=== PATIENT | female | born 1945 | race Caucasian/White ===

== ENCOUNTER 2017-08-25 12:52 | Inpatient (IN) | payer OTHER ==
[~2017-08-25] VITALS: Ht 165.1 cm; Wt 85.7 kg
[~2017-08-25 12:52] MED LIST: ALPR1TAB3 PO; ASPCH81; ATOR-24 PO; CETI10TA84 PO; DFL100 PO; EFF50 PO; GABA-113 PO; GLC500 PO; HYDC25 PO; INSU70IN2 SC; METO25TA56 PO; NTRGSL/4 UT; PRLSR20 PO; SULF800T23 PO; [UNRECOGNIZED DRUG - CODE] PO
[2017-08-25] MEDS ORDERED: SODIUM CHLORIDE 0.9% 500ML 500 ML IV STA (13:37)
[2017-08-25] MEDS ORDERED: LORA10TA51 PO (13:40)
[2017-08-25] MEDS ORDERED: LYR50 PO (13:40)
[2017-08-25] MEDS ORDERED: FERR1TAB13 PO (13:40)
[2017-08-25] MEDS ORDERED: ASPI81TA28 PO (13:40)
[2017-08-25] MEDS ORDERED: NTRGSL/4 UT (13:40)
[2017-08-25] MEDS ORDERED: NVLGI7030 SC (13:40)
[2017-08-25] MEDS ORDERED: ISOS30TA3 PO (13:40)
[2017-08-25] MEDS ORDERED: CARV3.12 PO (13:40)
[2017-08-25] MEDS ORDERED: SPRIN/30 INH (13:40)
[2017-08-25] MEDS ORDERED: LISI-729 PO (13:40)
[2017-08-25] MEDS ORDERED: SYMIN160 INH (13:40)
[2017-08-25] MEDS ORDERED: ALLO300T2 PO (13:40)
[2017-08-25] MEDS ORDERED: LIDO4CRE10 TP (13:40)
[2017-08-25] MEDS ORDERED: OXGN (13:40)
[2017-08-25] MEDS ORDERED: CYAN10005 PO (13:40)
[2017-08-25] MEDS ORDERED: ROSU40TA PO (13:40)
[2017-08-25] MEDS ORDERED: CLOP1TAB54 PO (13:40)
[2017-08-25] MEDS ORDERED: ALBINS/ INH (13:40)
[2017-08-25] MEDS ORDERED: PRED20TA PO (13:40)
[2017-08-25] MEDS ORDERED: BUME1TAB PO (13:40)
[2017-08-25] MEDS ORDERED: ALPR1TAB3 PO (13:40)
[2017-08-25] MEDS ORDERED: MAGN400T6 PO (13:40)
[2017-08-25] MEDS ORDERED: OXYC-57 PO (13:40)
[2017-08-25] MEDS ORDERED: CHOL20009 PO (13:40)
[2017-08-25] MEDS ORDERED: RANI150T3 PO (13:40)
--- NOTE | 2017-08-25 14:01 | DIAGNOSTIC IMAGING REPORT ---
CHEST ONE VIEW PORTABLE HISTORY: 71 years-old Female ABDOMINAL PAIN/GI acute generalized abdominal pain with recent weight loss COMPARISON: None available TECHNIQUE: Portable upright AP view of the chest FINDINGS: Linear subsegmental bibasilar opacities are noted. Cardiac silhouette is mildly enlarged. There is atherosclerosis of the aorta. No pneumothorax, large pleural effusion or lobar airspace consolidation to suggest pneumonia. Mild blunting of left costophrenic angle is noted . The bones are grossly intact. Degenerative changes involve the shoulders and spine. Remote fracture of the distal right clavicle. IMPRESSION: 1. Cardiomegaly without overt pulmonary edema. 2. Linear subsegmental bibasilar opacities suggest atelectasis. Mild blunting of the left costophrenic angle also suggests atelectasis or trace effusion. The above report was generated using voice recognition software. It may contain grammatical, syntax or spelling errors. Electronically signed by: Miguelito Levy M.D. 08/25/2017 2:00 PM Dictated Date/Time: 08/25/2017 1:58 PM
[2017-08-25 14:42] LABS: BASO % 0.7 %; BASO ABS # 0.04 K/uL (0-0.2); COMPLETE YES; EOS % 2.6 %; HEMATOCRIT 31.4 % (37-47); IG% 0.7 %; LYMPH % 16.2 %; LYMPH ABS # 0.92 K/uL (1.2-3.4); MEAN CELL VOLUME 86.7 fL (80-100); MEAN CORPUSCULAR HEMOGLOBIN 28.2 pg (25-34); MEAN CORPUSCULAR HGB CONC 32.5 g/dl (32-36); MEAN PLATELET VOLUME 9.6 fL (7.4-10.4); NEUT % 67.8 %; PLATELET COUNT 248 K/uL (130-400); RED BLOOD COUNT 3.62 M/uL (4.2-5.4); WHITE BLOOD COUNT 5.68 K/uL (4.8-10.8)
[2017-08-25 15:00] LABS: BUN/CREATININE RATIO 12.3 (10-20); CALCIUM 9.1 mg/dl (8.5-10.1); CREATININE 1.62 mg/dl (0.60-1.20); POTASSIUM 4.1 mmol/L (3.5-5.1)
--- NOTE | 2017-08-25 16:13 | DIAGNOSTIC IMAGING REPORT ---
ABD/PELVIS WITHOUT FOR STONE CLINICAL HISTORY: 71 years-old Female presenting with back pain. TECHNIQUE: Multidetector CT of the abdomen and pelvis was performed without the use of intravenous contrast. IV contrast: None. A dose lowering technique was used consistent with the principles of ALARA (as low as reasonably achievable). COMPARISON: None. CT DOSE (mGy.cm): The estimated cumulative dose is 1266.13 mGy.cm. FINDINGS: Tie Knitter Helper topogram: Cholecystectomy clips noted. Lung bases: Extensive bandlike opacities at the lung bases, possibly scarring and/or atelectasis. Mild bronchial wall thickening may be present. Heart top normal in size. Mitral annular and coronary artery calcification. Trace left pleural effusion. No pericardial effusion. Liver: Normal morphology. Borderline hepatic steatosis. Biliary: No gross biliary ductal dilatation allowing for noncontrast technique. Gallbladder surgically absent. Pancreas: Moderate parenchymal atrophy. Spleen: Normal noncontrast appearance. Adrenal glands: Normal. Kidneys and ureters: Normal noncontrast appearance. No hydronephrosis. Nonspecific perinephric fat infiltration. Renal vascular calcification. Bladder: Normal. Pelvic organs: Uterus and ovaries normal. Bowel: Limited diverticulosis of the proximal sigmoid colon. Mild stool burden. Lipomatous hypertrophy of the ileocecal valve. No bowel obstruction. Peritoneal cavity: Mild infiltration of the small bowel mesentery associated with scattered prominent mesenteric lymph nodes. This may represent mesenteric panniculitis or be related to the lymphoid disease. No free fluid or gas. Lymph nodes: Multiple pathologically enlarged retroperitoneal lymph nodes noted, some forming a conglomerate in the left periaortic region. Lymphadenopathy extends into the celiac region as well as the posterior mediastinum and retrocrural regions. Numerous prominent no subcentimeter lymph nodes noted in the bilateral common and external iliac regions. Vasculature: Atherosclerosis of the normal caliber abdominal aorta. Abdominal wall: Normal. Musculoskeletal: Degenerative changes of the spine. IMPRESSION: 1. Significant retroperitoneal lymphadenopathy, which is highly suspicious for lymphoproliferative disease/lymphoma. Sites of involvement described above. 2. No other acute intra-abdominal pathology evident. 3. Extensive bibasilar atelectasis and/or scarring. The report will be called/faxed according to standard departmental protocol. Electronically signed by: Goran Dumont M.D. 08/25/2017 4:12 PM Dictated Date/Time: 08/25/2017 4:03 PM
--- NOTE | 2017-08-25 16:50 | EMERGENCY ROOM VISIT NOTE ---
History Report prepared by Lucy: Chyna Mendez Under the Supervision of: Dr. Morro Lovett D.O. First contact with patient: 13:18 Chief Complaint: ABNORMAL LABS Stated Complaint: ABNORMAL LABS History of Present Illness The patient is a 71 year old female who presents to the Emergency Room after abnormal outpatient labs. The patient has been having severe back pain. She has been seen in the ED in [place] multiple times for this pain. She states that most of her pain is located on the left side of her back. She went to the [place] ED 4 days ago and had a chest CT and blood work done at that time. Family states this CT scan showed a retroperitoneal mass that was wrapped around her aorta. She followed up with her PCP, Dr. Davenport, the next day. She had some repeat blood work done at that time. Yesterday the patient was called into her PCP's office for repeat blood work again. She was called today and told that her labs were abnormal. She was advised to come to the ED for further evaluation. Family states that they also wanted the patient to have an abdominal CT to get a better view of her retroperitoneal mass. The patient has been taking oral pain medication that seems to be helping her pain. She states that her pain worsens with bending forward. She rates her current pain as a 5/ 10 in severity. She also reports a recent 15-lb weight-loss as well as some pain in the right ribs. 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 A total of 10 systems reviewed and were otherwise negative. Past Medical & Surgical Medical Problems: (1) Esophageal reflux (2) Hypertension Surgical Problems: (1) Knee joint replacement status Family History No pertinent history stated. Social History Smoking Status: Unknown if Ever Smoked Current/Historical Medications Scheduled Allopurinol (Zyloprim), 300 MG PO DAILY Aspirin (Aspirin Ec), 81 MG PO DAILY Budesonide/Formoterol Fumarate (Symbicort 160/4.5 Inhaler ), 2 PUFFS INH BID Bumetanide (Bumex), 1 MG PO DAILY Carvedilol (Coreg), 3.125 MG PO BIDM Cholecalciferol (Vitamin D), 2,000 UNITS PO DAILY Clopidogrel Bisulfate (Plavix), 75 MG PO DAILY Cyanocobalamin (Vitamin B-12), 1,000 MCG PO DAILY Ferrous Sulfate (Kp Ferrous Sulfate), 325 MG PO BID Home O2 Therapy (Oxygen), 2 LITERS NA UD Insulin Aspart Protamine & Asp (Novolog Mix 70/30), 62 UNITS SC BIDM Isosorbide Mononitrate Ext Rel (Imdur Ext Rel), 30 MG PO BID Lisinopril (Prinivil), 5 MG PO DAILY Loratadine (Claritin), 10 MG PO DAILY Magnesium Oxide (Mag-Ox), 400 MG PO BID Prednisone (Prednisone), 1 DOSE PO UD Pregabalin (Lyrica), 50 MG PO BID Ranitidine Hcl (Zantac), 150 MG PO BID Rosuvastatin Calcium (Crestor), 40 MG PO DAILY Tiotropium Java (Spiriva Handihaler), 1 CAP INH DAILY Scheduled PRN Albuterol Sulf (Proventil 0.083% 2.5MG/3ML), 2.5 MG INH Q4 PRN for Wheezing Alprazolam (Xanax), 0.5 MG PO BID PRN for Anxiety Lidocaine (Anorectal) (Lidocaine), 1 APPLN TP Q4 PRN for Moderate Pain Nitroglycerin (Nitrostat), 0.4 MG UT PRN PRN for Chest Pain Oxycodone/Acetaminophen 5MG/325MG (Percocet 5MG/325MG), 1 TABLET PO Q6H PRN for Pain Allergies Coded Allergies: Niacin (Unverified Allergy, Mild, 08/25/17) Physical Exam Vital Signs Date Time Temp Pulse Resp B/P (MAP) Pulse Ox O2 Delivery O2 Flow Rate FiO2 08/25/17 15:04 72 131/51 95 Room Air 08/25/17 12:56 36.7 81 18 115/73 97 Room Air Physical Exam CONSTITUTIONAL/VITAL SIGNS: Reviewed / noted above. GENERAL: Non-toxic in appearance. INTEGUMENTARY: Warm, dry, and [place]. HEAD: Normocephalic. EYES: without scleral icterus or trauma. ENT/OROPHARYNX: clear and moist. LYMPHADENOPATHY/NECK: Is supple without lymphadenopathy or meningismus. RESPIRATORY: Lungs clear and equal. CARDIOVASCULAR: Regular rate and rhythm. GI/ABDOMEN: Soft and nontender. No organomegaly or pulsatile mass. No rebound or guarding. Normal bowel sounds. EXTREMITIES: Warm and well perfused. BACK: No CVA tenderness. NEUROLOGICAL: Intact without focal deficits. PSYCHIATRIC: normal affect. MUSCULOSKELETAL: Normally developed with good muscle tone. Medical Decision & Procedures ER Provider Diagnostic Interpretation: Radiology results as stated below per my review and radiologist interpretation: CHEST ONE VIEW PORTABLE HISTORY: 71 years-old Female ABDOMINAL PAIN/GI acute generalized abdominal pain with recent weight loss COMPARISON: None available TECHNIQUE: Portable upright AP view of the chest FINDINGS: Linear subsegmental bibasilar opacities are noted. Cardiac silhouette is mildly enlarged. There is atherosclerosis of the aorta. No pneumothorax, large pleural effusion or lobar airspace consolidation to suggest pneumonia. Mild blunting of left costophrenic angle is noted . The bones are grossly intact. Degenerative changes involve the shoulders and spine. Remote fracture of the distal right clavicle. IMPRESSION: 1. Cardiomegaly without overt pulmonary edema. 2. Linear subsegmental bibasilar opacities suggest atelectasis. Mild blunting of the left costophrenic angle also suggests atelectasis or trace effusion. The above report was generated using voice recognition software. It may contain grammatical, syntax or spelling errors. Electronically signed by: Miguelito Levy M.D. 08/25/2017 2:00 PM Dictated Date/Time: 08/25/2017 1:58 PM ABD/PELVIS WITHOUT FOR STONE CLINICAL HISTORY: 71 years-old Female presenting with back pain. TECHNIQUE: Multidetector CT of the abdomen and pelvis was performed without the use of intravenous contrast. IV contrast: None. A dose lowering technique was used consistent with the principles of ALARA (as low as reasonably achievable). COMPARISON: None. CT DOSE (mGy.cm): The estimated cumulative dose is 1266.13 mGy.cm. FINDINGS: Quality Controller topogram: Cholecystectomy clips noted. Lung bases: Extensive bandlike opacities at the lung bases, possibly scarring and/or atelectasis. Mild bronchial wall thickening may be present. Heart top normal in size. Mitral annular and coronary artery calcification. Trace left pleural effusion. No pericardial effusion. Liver: Normal morphology. Borderline hepatic steatosis. Biliary: No gross biliary ductal dilatation allowing for noncontrast technique. Gallbladder surgically absent. Pancreas: Moderate parenchymal atrophy. Spleen: Normal noncontrast appearance. Adrenal glands: Normal. Kidneys and ureters: Normal noncontrast appearance. No hydronephrosis. Nonspecific perinephric fat infiltration. Renal vascular calcification. Bladder: Normal. Pelvic organs: Uterus and ovaries normal. Bowel: Limited diverticulosis of the proximal sigmoid colon. Mild stool burden. Lipomatous hypertrophy of the ileocecal valve. No bowel obstruction. Peritoneal cavity: Mild infiltration of the small bowel mesentery associated with scattered prominent mesenteric lymph nodes. This may represent mesenteric panniculitis or be related to the lymphoid disease. No free fluid or gas. Lymph nodes: Multiple pathologically enlarged retroperitoneal lymph nodes noted, some forming a conglomerate in the left periaortic region. Lymphadenopathy extends into the celiac region as well as the posterior mediastinum and retrocrural regions. Numerous prominent no subcentimeter lymph nodes noted in the bilateral common and external iliac regions. Vasculature: Atherosclerosis of the normal caliber abdominal aorta. Abdominal wall: Normal. Musculoskeletal: Degenerative changes of the spine. IMPRESSION: 1. Significant retroperitoneal lymphadenopathy, which is highly suspicious for lymphoproliferative disease/lymphoma. Sites of involvement described above. 2. No other acute intra-abdominal pathology evident. 3. Extensive bibasilar atelectasis and/or scarring. The report will be called/faxed according to standard departmental protocol. Electronically signed by: Goran Dumont M.D. 08/25/2017 4:12 PM Dictated Date/Time: 08/25/2017 4:03 PM Laboratory Results 08/25/17 13:37 Red Blood Count 3.62, Mean Corpuscular Volume 86.7, Mean Corpuscular Hemoglobin 28.2, Mean Corpuscular Hemoglobin Concent 32.5, Mean Platelet Volume 9.6, Neutrophils (%) (Auto) 67.8, Lymphocytes (%) (Auto) 16.2, Monocytes (%) (Auto) 12.0, Eosinophils (%) (Auto) 2.6, Basophils (%) (Auto) 0.7, Neutrophils # (Auto ) 3.85, Lymphocytes # (Auto) 0.92, Monocytes # (Auto) 0.68, Eosinophils # (Auto ) 0.15, Basophils # (Auto) 0.04 08/25/17 13:37 Test 08/25/17 13:37 White Blood Count 5.68 K/uL (4.8-10.8) Red Blood Count 3.62 M/uL (4.2-5.4) Hemoglobin 10.2 g/dL (12.0-16.0) Hematocrit 31.4 % (37-47) Mean Corpuscular Volume 86.7 fL (80-100) Mean Corpuscular Hemoglobin 28.2 pg (25-34) Mean Corpuscular Hemoglobin Concent 32.5 g/dl (32-36) Platelet Count 248 K/uL (130-400) Mean Platelet Volume 9.6 fL (7.4-10.4) Neutrophils (%) (Auto) 67.8 % Lymphocytes (%) (Auto) 16.2 % Monocytes (%) (Auto) 12.0 % Eosinophils (%) (Auto) 2.6 % Basophils (%) (Auto) 0.7 % Neutrophils # (Auto) 3.85 K/uL (1.4-6.5) Lymphocytes # (Auto) 0.92 K/uL (1.2-3.4) Monocytes # (Auto) 0.68 K/uL (0.11-0.59) Eosinophils # (Auto) 0.15 K/uL (0-0.5) Basophils # (Auto) 0.04 K/uL (0-0.2) RDW Standard Deviation 51.4 fL (36.4-46.3) RDW Coefficient of Variation 16.1 % (11.5-14.5) Immature Granulocyte % (Auto) 0.7 % Immature Granulocyte # (Auto) 0.04 K/uL (0.00-0.02) Anion Gap 10.0 mmol/L (3-11) Est Creatinine Clear Calc Drug Dose 34.1 ml/min Estimated GFR () 36.6 Estimated GFR (Non- 31.6 BUN/Creatinine Ratio 12.3 (10-20) Calcium Level 9.1 mg/dl (8.5-10.1) Total Bilirubin 0.3 mg/dl (0.2-1) Direct Bilirubin 0.1 mg/dl (0-0.2) Aspartate Amino Transf (AST/SGOT) 12 U/L (15-37) Alanine Aminotransferase (ALT/SGPT) 12 U/L (12-78) Alkaline Phosphatase 103 U/L (45-117) Total Protein 7.0 gm/dl (6.4-8.2) Albumin 2.5 gm/dl (3.4-5.0) Lipase 37 U/L (73-393) Laboratory results as stated above per my review. Medications Administered Medications (Trade) Dose Ordered Sig/Wai Route Start Time Stop Time Status Last Admin Dose Admin Sodium Chloride 500 ml @ 999 mls/hr Q31M STAT IV 08/25/17 13:37 08/25/17 14:07 DC 08/25/17 14:15 999 MLS/HR ED Course 1318: Previous medical records were reviewed. The patient was evaluated in room B8. A complete history and physical examination was performed. 1337: NSS 500 ml @ 999 mls/hr IV 1546: I spoke with the patient's PCP, Dr. Davenport. We discussed her case and he recommends that the patient be admitted and further evaluated by the hospitalist. 1629: I spoke with Dr. Willoughby. We discussed the patients case. The patient will be evaluated by the [facility] for further management. 1632: I reassessed the patient at this time. She is resting comfortably. I discussed the results and treatment plan with the patient. I answered all pertaining questions that she had. She expressed understanding and verbalized agreement. Medical Decision Differential considered: pancreatitis, hepatitis, or acute cholecystitis, AAA, UTI, pyelonephritis, kidney stones, appendicitis, diverticulitis, shingles, bowel obstruction mesenteric ischemia, intussusception, hernia. This is a 71-year-old female who presents to the ED with a chief complaint of some back pain. The patient had an outpatient CT scan 4 days ago for PE that revealed some abnormalities that could be concerning for lymphoma. The patient was sent here for further evaluation. CT scan of the abdomen and pelvis reveals findings that are concerning for lymphoma. The patient's CBC reveals a mild anemia with a hemoglobin of 10. Chemistry panel was unremarkable, creatinine was 1.6, chest x-ray did not show acute process. I spoke with the hospitalist was, who will see the patient for further inpatient evaluation and care. Medication Reconcilliation Current Medication List: was personally reviewed by me Blood Pressure Screening Patient's blood pressure: Normal blood pressure Consults Time Called: [id number] Consulting Physician: Dr. Davenport Returned Call: [phone] I spoke with the patient's PCP, Dr. Davenport. We discussed her case and he recommends that the patient be admitted and further evaluated by the hospitalist. Additional Consults: Time Called: [phone] Consulted Physician: Dr. Willoughby Returned Call: [phone] Additional Comments: I spoke with Dr. Willoughby. We discussed the patients case. The patient will be evaluated by the [facility] for further management. Impression Primary Impression: Lymphoma Scribe Attestation The scribe's documentation has been prepared under my direction and personally reviewed by me in its entirety. I confirm that the note above accurately reflects all work, treatment, procedures, and medical decision making performed by me. Departure Information Dispostion Being Evaluated By Hospitalist Referrals Kota Davenport DRachO. (PCP) Patient Instructions My [facility]
[2017-08-25 17:59] LABS: URINE APPEARANCE CLOUDY (CLEAR); URINE BILIRUBIN NEG (NEG); URINE COLOR YELLOW; URINE EPITHELIAL CELL AUTO >30 /lpf (0-5); URINE NITRITE NEG (NEG); URINE SPECIFIC GRAVITY 1.019 (1.000-1.030); UROBILINOGEN NEG (NEG); ZZUR CULT IF INDIC CLEAN CATCH YES
[2017-08-25] MEDS ORDERED: ONDANSETRON INJ 2 MG/ML 2 ML VIAL IV PRN (18:00)
[2017-08-25] MEDS ORDERED: GLUCOSE 40% GEL 15 GM TUBE PO PRN (18:00)
[2017-08-25] MEDS ORDERED: DEXTROSE 50% 50 ML SYR IV PRN (18:00)
[2017-08-25] MEDS ORDERED: ACETAMINOPHEN 325 MG TAB PO PRN (18:00)
[2017-08-25] MEDS ORDERED: GLUCOSE 10 TABS/TUBE PO PRN (18:00)
[2017-08-25] MEDS ORDERED: GLUCAGON FOR INJ 1 MG VIAL SQ PRN (18:00)
[2017-08-25 18:13] LABS: MANUAL MICROSCOPIC REQUIRED? NO; REVIEW REQ? NO
[2017-08-25] MEDS ORDERED: OXYC7.5T66 PO (18:21)
[2017-08-25] MEDS ORDERED: ALPRAZOLAM 0.5 MG TAB PO PRN (18:30)
[2017-08-25] MEDS ORDERED: NITROGLYCERIN 0.4 MG SL PER TAB CHARGE UT PRN (18:30)
[2017-08-25] MEDS ORDERED: SODIUM CHLORIDE 0.9% 1000ML 1,000 ML IV SCH (19:00)
--- NOTE | 2017-08-25 19:14 | History and Physical ---
History & Physical Date & Time of Service: Aug 25, 2017 at 18:27 Chief Complaint: Abnormal Labs Primary Care Physician: Kota Davenport D.O. 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 Patient was initially treated for muscle spasms but treatment of prednisone and flexeril did not improve symptoms. Three weeks ago, started to experience pain under her front ribs in addition to back pain. PCP increased oxycodone dose and imaged ribs and did a CTA to rule out a PE. CTA showed adenopathy and a mass around the aorta. Kidney function has also decreased in the past week, with Cr. increasing from 1.1 to 1.5. GFR decreased from baseline of 51 to 36. Endorses poor PO intake over the past few weeks due to decreased appetite/thirst as well as an unintentional [address] Davenport advised the patient to come to ER for further evaluation of lab work as well as obtaining a CT abd/pelvis for better evaluation of the mass. Patient is endorsing dull, aching pain in her lumbosacral spine as well as anterior ribs. Describes it as constant, worse with bending forward and walking and improved with PO pain medication. Past Medical/Surgical History Medical Problems: (1) Anxiety Status: Chronic (2) CAD (coronary artery disease) Status: Chronic (3) CKD (chronic kidney disease), stage III Status: Chronic (4) COPD (chronic obstructive pulmonary disease) Status: Chronic (5) Diabetes mellitus, type II Status: Chronic (6) Esophageal reflux Status: Chronic (7) Systolic and diastolic CHF, chronic Status: Chronic Surgical Problems: (1) Knee joint replacement status Status: Resolved Family History Family history was reviewed; no changes noted. Family history non-contributory Social History Smoking Status: Former Smoker Alcohol Use: occasionally Housing status: lives alone Occupational Status: retired Allergies Coded Allergies: Niacin (Unverified Allergy, Mild, 08/25/17) Home Medications Scheduled Allopurinol (Zyloprim), 300 MG PO DAILY Aspirin (Aspirin Ec), 81 MG PO DAILY Budesonide/Formoterol Fumarate (Symbicort 160/4.5 Inhaler ), 2 PUFFS INH BID Bumetanide (Bumex), 1 MG PO DAILY Carvedilol (Coreg), 3.125 MG PO BIDM Cholecalciferol (Vitamin D), 2,000 UNITS PO DAILY Clopidogrel Bisulfate (Plavix), 75 MG PO DAILY Cyanocobalamin (Vitamin B-12), 1,000 MCG PO DAILY Ferrous Sulfate (Kp Ferrous Sulfate), 325 MG PO BID Home O2 Therapy (Oxygen), 2 LITERS NA UD Insulin Aspart Protamine & Asp (Novolog Mix 70/30), 62 UNITS SC BIDM Isosorbide Mononitrate Ext Rel (Imdur Ext Rel), 30 MG PO BID Lisinopril (Prinivil), 5 MG PO DAILY Loratadine (Claritin), 10 MG PO DAILY Magnesium Oxide (Mag-Ox), 400 MG PO BID Pregabalin (Lyrica), 50 MG PO BID Ranitidine Hcl (Zantac), 150 MG PO BID Rosuvastatin Calcium (Crestor), 40 MG PO DAILY Tiotropium [place] (Spiriva Handihaler), 1 CAP INH DAILY Scheduled PRN Albuterol Sulf (Proventil 0.083% 2.5MG/3ML), 2.5 MG INH Q4 PRN for Wheezing Alprazolam (Xanax), 0.5 MG PO BID PRN for Anxiety Lidocaine (Anorectal) (Lidocaine), 1 APPLN TP Q4 PRN for Moderate Pain Nitroglycerin (Nitrostat), 0.4 MG UT PRN PRN for Chest Pain Oxycodone/Acetaminophen 7.5MG/325MG (Oxycodone/Acetaminophen 7.5MG/325MG), 1 TAB PO Q6H PRN for Pain Review of Systems Ten systems reviewed and negative except as noted in the HPI. Physical Exam Vital Signs Date Time Temp Pulse Resp B/P (MAP) Pulse Ox O2 Delivery O2 Flow Rate FiO2 08/25/17 17:38 74 166/56 97 Room Air 08/25/17 15:04 72 131/51 95 Room Air 08/25/17 12:56 36.7 81 18 115/73 97 Room Air General Appearance: + moderate distress (Crying intermittently during exam ), + obese Head: normocephalic, atraumatic Eyes: normal inspection, PERRL, sclerae normal (conjunctiva normal ) ENT: normal ENT inspection, hearing grossly normal, pharynx normal (Dry mucous membranes ) Neck: supple, no adenopathy, no JVD, trachea midline Respiratory/Chest: chest non-tender, lungs clear, normal breath sounds, no respiratory distress, no accessory muscle use Cardiovascular: regular rate, rhythm, no murmur, + pertinent finding (TTP behind anterior ribs ) Abdomen/GI: normal bowel sounds, non tender, soft, no organomegaly Back: normal inspection, no CVA tenderness, no muscle spasm, + paravertebral tenderness (lumbosacral region) Extremities/Musculoskelatal: normal inspection, no pedal edema, non-tender Neurologic/Psych: no motor/sensory deficits, alert, normal mood/affect, oriented x 3 Skin: normal color, warm/dry Diagnostics Laboratory Results Results Past 24 Hours Test 08/25/17 13:37 08/25/17 15:55 Range/Units White Blood Count 5.68 4.8-10.8 K/uL Red Blood Count 3.62 4.2-5.4 M/uL Hemoglobin 10.2 12.0-16.0 g/dL Hematocrit 31.4 37-47 % Mean Corpuscular Volume 86.7 80-100 fL Mean Corpuscular Hemoglobin 28.2 25-34 pg Mean Corpuscular Hemoglobin Concent 32.5 32-36 g/dl Platelet Count 248 130-400 K/uL Mean Platelet Volume 9.6 7.4-10.4 fL Neutrophils (%) (Auto) 67.8 % Lymphocytes (%) (Auto) 16.2 % Monocytes (%) (Auto) 12.0 % Eosinophils (%) (Auto) 2.6 % Basophils (%) (Auto) 0.7 % Neutrophils # (Auto) 3.85 1.4-6.5 K/uL Lymphocytes # (Auto) 0.92 1.2-3.4 K/uL Monocytes # (Auto) 0.68 0.11-0.59 K/uL Eosinophils # (Auto) 0.15 0-0.5 K/uL Basophils # (Auto) 0.04 0-0.2 K/uL RDW Standard Deviation 51.4 36.4-46.3 fL RDW Coefficient of Variation 16.1 11.5-14.5 % Immature Granulocyte % (Auto) 0.7 % Immature Granulocyte # (Auto) 0.04 0.00-0.02 K/uL Sodium Level 138 136-145 mmol/L Potassium Level 4.1 3.5-5.1 mmol/L Chloride Level 103 98-107 mmol/L Carbon Dioxide Level 25 21-32 mmol/L Anion Gap 10.0 3-11 mmol/L Blood Urea Nitrogen 20 7-18 mg/dl Creatinine 1.62 0.60-1.20 mg/dl Est Creatinine Clear Calc Drug Dose 34.1 ml/min Estimated GFR () 36.6 Estimated GFR (Non- 31.6 BUN/Creatinine Ratio 12.3 10-20 Random Glucose 148 70-99 mg/dl Calcium Level 9.1 8.5-10.1 mg/dl Total Bilirubin 0.3 0.2-1 mg/dl Direct Bilirubin 0.1 0-0.2 mg/dl Aspartate Amino Transf (AST/SGOT) 12 15-37 U/L Alanine Aminotransferase (ALT/SGPT) 12 12-78 U/L Alkaline Phosphatase 103 45-117 U/L Total Protein 7.0 6.4-8.2 gm/dl Albumin 2.5 3.4-5.0 gm/dl Lipase 37 73-393 U/L Urine Color YELLOW Urine Appearance CLOUDY CLEAR Urine pH 5.0 4.5-7.5 Urine Specific [place] 1.019 1.000-1.030 Urine Protein NEG NEG Urine Glucose (UA) NEG NEG Urine Ketones NEG NEG Urine Occult Blood NEG NEG Urine Nitrite NEG NEG Urine Bilirubin NEG NEG Urine Urobilinogen NEG NEG Urine Leukocyte Esterase MODERATE NEG Urine WBC (Auto) 10-30 0-5 /hpf Urine RBC (Auto) 0-4 0-4 /hpf Urine Hyaline Casts (Auto) 1-5 0-5 /lpf Urine Epithelial Cells (Auto) >30 0-5 /lpf Urine Bacteria (Auto) 1+ NEG Microbiology Results 08/25/17 Urine Culture, Received Pending Diagnostic Radiology CT abd/pelvis: IMPRESSION: 1. Significant retroperitoneal lymphadenopathy, which is highly suspicious for lymphoproliferative disease/lymphoma. Sites of involvement described above. 2. No other acute intra-abdominal pathology evident. 3. Extensive bibasilar atelectasis and/or scarring. The report will be called/faxed according to standard departmental protocol. CXR: IMPRESSION: 1. Cardiomegaly without overt pulmonary edema. 2. Linear subsegmental bibasilar opacities suggest atelectasis. Mild blunting of the left costophrenic angle also suggests atelectasis or trace effusion. 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 Abnormal abd/pelvis CT: -CT abdomen pelvis with significant retroperitoneal lymphadenopathy highly suspicious for lymphoproliferative disease/ lymphoma -Patient also endorses poor appetite and unintentional wt loss -Will need a biopsy by IR here or in [place] -Heme onc consulted Lower back pain/rib pain: -Likely multifactorial due to degenerative changes, ?lymphoproliferative disease -Encouraged ambulation, PT/OT eval due to deconditioning -Pain control per home oxycodone -Bowel regimen DM II: -Hgb a1c of 8.6 on 08/06/17 -Recent episodes of hypoglycemia at home 2/2 poor po intake -Hold home regimen -SSI while in-patient -BSG checks AC HS AVINASH on CKD III: -Worsening renal function over 48 hrs -Cr increased from 1.2 to 1.5 -GFR decreased to baseline of 51 to 1.1 -Gentle IVF resuscitation -Held lasix overnight. Reassess tomorrow COPD: -Stable -No SOB, lungs are clear -Continue home inhalers -2L O2 NC qHS Mixed systolic and diastolic HF: -LV systolic dysfunction with EF of 50-55% -Compensated -Bumex held until renal function improves or patient becomes volume overloaded -Cont lisinopril, imdur, coreg CAD (s/p stent): -Stable. no CP -ASA, plavix held due to potential biopsy tomorrow GERD: -Continue H2 kassandra and PPI Anxiety: -Home Xanax PRN DVT Ppx: SCDs (no pharmacologic anticoagulation due to potential procedure tomorrow) Code status: FULL PCP: Ethel Dispo: SW consulted to help with discharge placement. Patient interested in home health upon discharge. [id number] requested daily updates during admission. LYDIA Will Patient seen in collaboration with Dr. Willoughby. Please see addendum. Attending physician Dr. Willoughby addendum: I have seen and examined the patient with BIBI Gallo and agree with the assessment and plan and would like to comment: This is a 71 year old F patient of primary care Dr. Davenport who has been having history of reportedly weight loss and pain of ribcage and was found on outpatient CTA lung test with retroperitoneal mass and now seen on CT abdomen with retroperitoneal lymphadenopathy which as per radiology interpretation is suspicious for lymphoma. Patient is not in acute physical distress however she has been informed by the ER physician that these findings are suggestive of malignancy. She has complaint of pain that has been chronic of the ribcage bilaterally and points to both sides of the lowest anterior ribs bilaterally. However there is no acute tenderness on palpation and her outpatient evaluation included negative X rays of the rib cage. Patient likely will need biopsy of retroperitoneal lymph nodes. Hematology Oncology consult requested. Patient also has evidence of mild AVINASH likely due to dehydration or poor PO intake. Patient will benefit from oral diet and IV hydration as tolerated. No evidence of acute CHF and will limit diuresis for now Level of Care Med/Surg Resuscitation Status FULL RESUSCITATION VTE Prophylaxis VTE Risk Assessment Done? Y/N: Yes Risk Level: Moderate Given or contraindicated: SCD's
[2017-08-25 19:17] LABS: INR 1.1 (0.9-1.1); PROTHROMBIN TIME (PATIENT) 11.4 SECONDS (9.0-12.0)
[2017-08-25] MEDS ORDERED: POLYETHYLENE (MIRALAX) 17 GM PACK PO PRN (19:30)
[2017-08-25] MEDS: PREGABALIN 50 MG CAP PO SCH (19:58)
[2017-08-25] MEDS ORDERED: IV FLUIDS COMPLETED PRN (20:00)
[2017-08-25] MEDS: BUDESONIDE/FORMOTEROL FUMARATE 160/4.5 60 PUFFS/INHALER INH SCH (20:01)
[2017-08-25] MEDS: MAGNESIUM OXIDE 400 MG TAB PO SCH (20:03)
[2017-08-25] MEDS: ISOSORBIDE MONONITRATE 30 MG TABCR PO SCH (20:03)
[2017-08-25] MEDS: RANITIDINE HCL 150 MG TAB PO SCH (20:04)
[2017-08-25] MEDS: INSULIN ASPART 100 UNITS/ML 3 ML PEN SC SCH (20:06)
[2017-08-25 20:43] VITALS: O2SAT 96; BMI 30.8
[2017-08-25] MEDS: OXYCODONE/ACETAMINOPHEN 7.5-325 TAB PO PRN (20:49)
[2017-08-25] MEDS ORDERED: HEPARIN SOD 5000 UNIT/0.5 ML CARP SQ SCH (21:00)
[2017-08-25 23:59] VITALS: O2SAT 96
[2017-08-26] VITALS (7 sets, daily range): BP systolic 113–142; BP diastolic 64–76; PULSE 61–78; TEMP 36.2–36.7; O2SAT 95–100; BMI 27.6; BMI 31.2; BMI 31.4
[2017-08-26] MEDS: OXYCODONE/ACETAMINOPHEN 7.5-325 TAB PO PRN ×2 (03:58→16:07)
[2017-08-26] MEDS ORDERED: HYDROmorphone INJ 0.5 MG/0.5 ML SYR IV ONE (05:13)
[2017-08-26] MEDS ORDERED: LISINOPRIL 5 MG TAB PO SCH (08:00)
[2017-08-26] MEDS ORDERED: CLOPIDOGREL BISULFATE 75 MG TAB PO SCH (08:00)
[2017-08-26] MEDS ORDERED: ASPIRIN 81 MG ECTAB PO SCH (08:00)
[2017-08-26] MEDS: BUDESONIDE/FORMOTEROL FUMARATE 160/4.5 60 PUFFS/INHALER INH SCH ×2 (08:23→19:59)
[2017-08-26] MEDS: TIOTROPIUM BROMIDE 5 PUFF/90 MCG INH INH SCH (08:23)
[2017-08-26] MEDS: CARVEDILOL 3.125 MG TAB PO SCH ×2 (08:26→17:42)
[2017-08-26] MEDS: LORATADINE 10 MG TAB PO SCH (08:26)
[2017-08-26] MEDS: ROSUVASTATIN CALCIUM 20 MG TAB PO SCH (08:28)
[2017-08-26] MEDS: ISOSORBIDE MONONITRATE 30 MG TABCR PO SCH ×2 (08:30→19:58)
[2017-08-26] MEDS: PREGABALIN 50 MG CAP PO SCH ×2 (08:30→20:04)
[2017-08-26] MEDS: FERROUS SULFATE 325 MG TAB PO SCH ×2 (08:30→17:42)
[2017-08-26] MEDS: CYANOCOBALAMIN 500 MCG TAB (VIT B-12) PO SCH (08:32)
[2017-08-26] MEDS: MAGNESIUM OXIDE 400 MG TAB PO SCH ×2 (08:32→19:58)
[2017-08-26] MEDS: RANITIDINE HCL 150 MG TAB PO SCH ×2 (08:33→19:58)
[2017-08-26] MEDS: CHOLECALCIFEROL 1000 INTER.UNIT TAB PO SCH (08:33)
[2017-08-26] MEDS: ALLOPURINOL 300 MG TAB PO SCH (08:34)
[2017-08-26] MEDS: INSULIN ASPART 100 UNITS/ML 3 ML PEN SC SCH ×4 (08:40→20:02)
--- NOTE | 2017-08-26 08:51 | Medical Consult ---
Consultation Date of Consultation: Aug 26, 2017. Attending Physician: Veronica West M.D. History of Present Illness Hematology/Oncology consult: Evaluation management of retroperitoneal lymphadenopathy noted in the recent imaging study Date of consultation: 08/26/2017 HPI: 71-year-old the female, has quite a few comorbid conditions as outlined below Complained of the increasing lower back pain and some nonspecific abdominal pain intermittently for the last few weeks/few months, she is not sure about the exact duration. She was treated with the prednisone and the muscle relaxant without much improvement of the pain. She is on oxycodone for the symptomatic treatment with some improvement of the pain. She denies any increasing nausea, vomiting, no fever, also has abnormal kidney function test, poor oral intake mainly fluid intake noted, weight loss present by about 7 to 8 lb. She denies any radicular pain in the lower extremities. She is on oxygen therapy at nighttime for underlying COPD. She had a further workup in the form of CT scan of the chest, abdomen pelvis, it shows extensive retroperitoneal lymphadenopathy, no breast lymphadenopathy noted. I saw her bedside, she is sitting comfortably in the chair, receiving oxygen therapy (2 liters/minute), no fever at present, hemodynamically stable, REVIEW OF SYSTEMS: GENERAL: Weight loss present of about 7 to 8 lb, feeling weak and tired, no fever or chills. no fever, sweats or chills. SKIN: No skin rash, no bruising. HEAD: No new headache, no dizziness. EYES: No recent change in the vision, no diplopia, EARS: No earache no tinnitus, NOSE: No epistaxis, No nasal discharge or stuffiness, MOUTH: No sores, no dysphagia, no hoarseness of voice, NECK: No lumps, No swelling in thyroid area. No stiffness. PULMONARY: No cough, mild shortness of breath, no hemoptysis, no chest pain, No wheezing. CARDIOVASCULAR: No anginal chest pain, no PND, no orthopnea. No palpitation, has some mild leg edema towards the end of the day. No syncope. GASTROINTESTINAL: Some nonspecific abdominal discomfort present, no nausea or vomiting. No diarrhea, No constipation. No blood in stool or black tarry stools. No abdominal distention. UROLOGIC: No burning urination. No hematuria. MUSCULOSKELETAL: No joint pain, No joint swelling, no muscle weakness. She does complain of the lower back pain, no radicular pain in the lower extremities. HEMATOLOGIC: Mild anemia noted, no bleeding disorder, No bruising. NEUROLOGIC: No seizures, no focal weakness, no speech difficulty, No memory disturbances. If symptoms of peripheral neuropathy involving the both lower extremities and to a lesser extent in the upper extremities. PSYCHIATRIC: Anxiety present. No psychosis. SLEEP: No sleep disorder. She is using nasal cannula supplemental in the nighttime for underlying COPD. Past medical and surgical history: -COPD, she is on oxygen therapy at nighttime. -Diabetes mellitus, diabetic the neuropathy -Chronic kidney disease, stage III. -hypertension, coronary artery disease, GERD, anxiety. -S/P cholecystectomy Social history: History of smoking present in the past, no ETOH abuse. She lives by herself, she ambulates slowly by herself at home Family history: Not significant Medications: Please review her chart for detailed list of medications. Allergies: Niacin. On exam: - Alert and oriented x3, well built woman, not in any distress. - HEENT: no icterus, mild pallor noted, Throat: Normal. - Neck: No palpable cervical lymphadenopathy. - Chest: Emphysematous chest noted.. - Abdomen: soft, nontender, no hepatomegaly, no splenomegaly. - No focal neuro deficit. - Extremities: no finger clubbing, no leg edema. -no palpable lymphadenopathy in the axilla. Lab: Blood workup done on 08/25/2017: -WBC 5600, H&H of 10.2/31.4, Platelet count of 248,000. -ANC 3800, absolute lymphocyte count 920. -ESR--> pending. -BUN/Creat: 20/1.6, normal liver function test, Albumin 2.5. -lipase--> 37. -blood sugar 148. Imaging: -chest x-ray done on 08/25/2017 showed cardiomegaly without any evidence of pulmonary edema, subsegmental bibasilar atelectatic changes noted. -CT scan of the abdomen and pelvis done on 10/15/2016 showed significantly retroperitoneal adenopathy (mainly involving left periaortic region, extending into the celiac lesion as well as into the posterior mediastinum and retrocrural region), no liver lesion, hepatic steatosis noted, numerous prominent the sub cm lymph nodes noted in the bilateral common and external iliac lymph jerome region. No splenomegaly noted. Imaging studies (CT scan of chest) done on 08/20/2017 at [facility] in [place]--> no evidence of pulmonary embolism, significantly peritoneal lymphadenopathy noted. Retroperitoneal mass encasing the aorta and also encasing the most of the left renal artery measuring up to 7 cm x 6.6 x 11 cm noted. S/P cholecystectomy noted. No mediastinal lymphadenopathy reported ASSESSMENT AND PLAN: 71-year-old female, who has few other comorbid conditions as outlined above, complained of increasing lower back pain for the last few weeks/few months duration, did not respond well with the prednisone as well as muscle relaxant therapy, further workup shows significantly enlarged the retroperitoneal lymphadenopathy encasing the aorta and left renal artery, no mediastinal lymphadenopathy noted, slight weight loss noted, no fever, no night sweats, does not any palpable lymphadenopathy on physical examination, no splenomegaly noted. Overall clinical picture favoring lymphoproliferative disorder and the need a tissue diagnosis. I would consider CT-guided biopsy of the mediastinal lymph nodes in her case. Once we have definitive diagnosis, will decide about further staging workup including PET-CT scan/bone marrow and then also also decide about management in her case. Meanwhile will continue with the current the medical management including pain management. I would like to check uric acid, LDH. Thanks for the consultation. Dr. Anthony Anderson Hem/Onc (This note was completed using the dictation program Fluency Direct. As such, there may be misspellings, word substitutions, or other variations that should not change the essence of the clinical content of this encounter note. If there is need for further clarification, please direct questions to the provider listed above.) Family History Hypertension FATHER MOTHER Social History Smoking Status: Former Smoker Alcohol Use: occasionally Occupation Status: retired Allergies Coded Allergies: Niacin (Unverified Allergy, Mild, 08/25/17) Current Inpatient Medications Current Inpatient Medications Medications (Trade) Dose Ordered Sig/Wai Route Start Time Stop Time Status Last Admin Dose Admin Acetaminophen (Tylenol Tab) 650 mg Q4H PRN PO 08/25/17 18:00 09/24/17 17:59 Ondansetron HCl (Zofran Inj) 4 mg Q6H PRN IV 08/25/17 18:00 09/24/17 17:59 Insulin Aspart (novoLOG ASPART) SLIDING SCALE If C... ACHS SC 08/25/17 21:00 09/24/17 20:59 08/26/17 08:40 5 UNITS Glucose (Glucose 40% Gel) 15-30 GRAMS 15 GRAMS... UD PRN PO 08/25/17 18:00 09/24/17 17:59 Glucose (Glucose Chew Tab) 4-8 Tablets 4 Tabl... UD PRN PO 08/25/17 18:00 09/24/17 17:59 Dextrose (Dextrose 50% 50ML Syringe) 25-50ML OF 50% DW IV FOR... UD PRN IV 08/25/17 18:00 09/24/17 17:59 Glucagon (Glucagon Inj) 1 mg UD PRN SQ 08/25/17 18:00 09/24/17 17:59 Allopurinol (Zyloprim Tab) 300 mg DAILY PO 08/26/17 08:00 09/25/17 08:59 08/26/17 08:34 300 MG Alprazolam (Xanax Tab) 0.5 mg BID PRN PO 08/25/17 18:30 09/24/17 18:29 08/25/17 20:48 0.5 MG Budesonide/ Formoterol Fumarate (Symbicort 160/ 4.5 Inh) 2 puffs BID INH 08/25/17 20:00 09/24/17 20:59 08/26/17 08:23 2 PUFFS Carvedilol (Coreg Tab) 3.125 mg BIDM PO 08/26/17 08:00 09/25/17 07:59 08/26/17 08:26 3.125 MG Cyanocobalamin (Vitamin B-12 Tab) 1,000 mcg DAILY PO 08/26/17 08:00 09/25/17 08:59 08/26/17 08:32 1,000 MCG Isosorbide Mononitrate (Imdur Ext Rel Tab) 30 mg BID PO 08/25/17 20:00 09/24/17 20:59 08/26/17 08:30 30 MG Lisinopril (Zestril Tab) 5 mg DAILY PO 08/26/17 08:00 09/25/17 08:59 08/26/17 08:33 5 MG Loratadine (Claritin Tab) 10 mg DAILY PO 08/26/17 08:00 09/25/17 08:59 08/26/17 08:26 10 MG Magnesium Oxide (Mag-Ox Tab) 400 mg BID PO 08/25/17 20:00 09/24/17 20:59 08/26/17 08:32 400 MG Nitroglycerin (Nitrostat Tab) 0.4 mg UD PRN UT 08/25/17 18:30 09/24/17 18:29 Pregabalin (Lyrica Cap) 50 mg BID PO 08/25/17 20:00 09/24/17 20:59 08/26/17 08:30 50 MG Ranitidine HCl (zANTac TAB) 150 mg BID PO 08/25/17 20:00 09/24/17 20:59 08/26/17 08:33 150 MG Rosuvastatin Calcium (Crestor Tab) 40 mg DAILY PO 08/26/17 08:00 09/25/17 08:59 08/26/17 08:28 40 MG Tiotropium [place] (Spiriva Handihaler Inhaler) 1 puff DAILY INH 08/26/17 08:00 09/25/17 08:59 08/26/17 08:23 1 PUFF Cholecalciferol (Vitamin D Tab) 2,000 inter.unit DAILY PO 08/26/17 08:00 09/25/17 08:59 08/26/17 08:33 2,000 INTER.UNIT Ferrous Sulfate (Feosol Tab) 325 mg BIDM PO 08/26/17 08:00 09/25/17 07:59 08/26/17 08:30 325 MG Polyethylene (Miralax Powder Packet) 17 gm DAILY PRN PO 08/25/17 19:30 09/24/17 19:29 Miscellaneous (Iv Fluids Completed) 1 ea PRN PRN N/A 08/25/17 20:00 08/25/18 19:59 Oxycodone/ Acetaminophen (Percocet 7.5-325MG Tab) pain not relieved by tylenol Q4H PRN PO 08/26/17 05:15 09/08/17 18:29 Hydromorphone HCl (Dilaudid Inj) 0.5 mg Q3H PRN IV 08/26/17 05:15 09/09/17 05:14 Physical Exam Date Time Temp Pulse Resp B/P (MAP) Pulse Ox O2 Delivery O2 Flow Rate FiO2 08/26/17 08:27 Nasal Cannula 2.0 08/26/17 07:16 36.3 65 14 122/64 (83) 98 Room Air 2.0 08/26/17 04:00 36.4 71 16 126/65 (85) 99 Nasal Cannula 2.0 08/26/17 00:26 36.7 78 20 113/69 (84) 95 Nasal Cannula 2.0 08/25/17 23:59 96 Nasal Cannula 2.0 08/25/17 20:43 96 Room Air 08/25/17 18:32 80 125/59 96 08/25/17 17:38 74 166/56 97 Room Air 08/25/17 15:04 72 131/51 95 Room Air 08/25/17 12:56 36.7 81 18 115/73 97 Room Air Laboratory Results Last 24 Hours Test 08/25/17 13:37 08/25/17 14:05 08/25/17 15:55 08/25/17 19:51 White Blood Count 5.68 K/uL Red Blood Count 3.62 M/uL Hemoglobin 10.2 g/dL Hematocrit 31.4 % Mean Corpuscular Volume 86.7 fL Mean Corpuscular Hemoglobin 28.2 pg Mean Corpuscular Hemoglobin Concent 32.5 g/dl Platelet Count 248 K/uL Mean Platelet Volume 9.6 fL Neutrophils (%) (Auto) 67.8 % Lymphocytes (%) (Auto) 16.2 % Monocytes (%) (Auto) 12.0 % Eosinophils (%) (Auto) 2.6 % Basophils (%) (Auto) 0.7 % Neutrophils # (Auto) 3.85 K/uL Lymphocytes # (Auto) 0.92 K/uL Monocytes # (Auto) 0.68 K/uL Eosinophils # (Auto) 0.15 K/uL Basophils # (Auto) 0.04 K/uL RDW Standard Deviation 51.4 fL RDW Coefficient of Variation 16.1 % Immature Granulocyte % (Auto) 0.7 % Immature Granulocyte # (Auto) 0.04 K/uL Sodium Level 138 mmol/L Potassium Level 4.1 mmol/L Chloride Level 103 mmol/L Carbon Dioxide Level 25 mmol/L Anion Gap 10.0 mmol/L Blood Urea Nitrogen 20 mg/dl Creatinine 1.62 mg/dl Est Creatinine Clear Calc Drug Dose 34.1 ml/min Estimated GFR () 36.6 Estimated GFR (Non- 31.6 BUN/Creatinine Ratio 12.3 Random Glucose 148 mg/dl Calcium Level 9.1 mg/dl Total Bilirubin 0.3 mg/dl Direct Bilirubin 0.1 mg/dl Aspartate Amino Transf (AST/SGOT) 12 U/L Alanine Aminotransferase (ALT/SGPT) 12 U/L Alkaline Phosphatase 103 U/L Total Protein 7.0 gm/dl Albumin 2.5 gm/dl Lipase 37 U/L Prothrombin Time 11.4 SECONDS Prothromb Time International Ratio 1.1 Urine Color YELLOW Urine Appearance CLOUDY Urine pH 5.0 Urine Specific [place] 1.019 Urine Protein NEG Urine Glucose (UA) NEG Urine Ketones NEG Urine Occult Blood NEG Urine Nitrite NEG Urine Bilirubin NEG Urine Urobilinogen NEG Urine Leukocyte Esterase MODERATE Urine WBC (Auto) 10-30 /hpf Urine RBC (Auto) 0-4 /hpf Urine Hyaline Casts (Auto) 1-5 /lpf Urine Epithelial Cells (Auto) >30 /lpf Urine Bacteria (Auto) 1+ Bedside Glucose 169 mg/dl Test 08/26/17 08:15 08/26/17 08:39 Bedside Glucose 179 mg/dl
[2017-08-26 09:03] LABS: HEMATOCRIT 29.8 % (37-47); MEAN CELL VOLUME 88.4 fL (80-100); MEAN CORPUSCULAR HEMOGLOBIN 27.9 pg (25-34); MEAN CORPUSCULAR HGB CONC 31.5 g/dl (32-36); MEAN PLATELET VOLUME 8.9 fL (7.4-10.4); PLATELET COUNT 229 K/uL (130-400); RED BLOOD COUNT 3.37 M/uL (4.2-5.4); WHITE BLOOD COUNT 5.49 K/uL (4.8-10.8)
[2017-08-26 09:08] LABS: INR 1.1 (0.9-1.1); PROTHROMBIN TIME (PATIENT) 11.7 SECONDS (9.0-12.0)
--- NOTE | 2017-08-26 09:15 | Progress Note ---
Progress Note Date of Service Aug 26, 2017. Progress Note ATTENDING NOTE : 71-year-old female, admitted yesterday with with increasing lower back pain for the last few weeks/few months duration CT abdomen /pelvis : shows significantly enlarged the retroperitoneal lymphadenopathy encasing the aorta and left renal artery Significant retroperitoneal lymphadenopathy, which is highly suspicious for lymphoproliferative disease/lymphoma. Sites of involvement described above. pt evaluated by Heme Onc will need CT guided biopsy of LN CT guided biopsy for retroperitoneal LN ordered Case D/W Radiology pt' PT/INR wnl ; safe to proceed for biopsy
[2017-08-26 09:18] LABS: BUN/CREATININE RATIO 12.6 (10-20); CALCIUM 8.5 mg/dl (8.5-10.1); CREATININE 1.41 mg/dl (0.60-1.20); POTASSIUM 4.4 mmol/L (3.5-5.1)
--- NOTE | 2017-08-26 17:06 | Progress Note ---
Internal Med Progress Note Date of Service: Aug 26, 2017. Provider Documentation: SUBJECTIVE: sitting up on chair , has back pain earlier now better anxious regarding CT guided biopsy of the lymph node tomorrow family visiting OBJECTIVE: Vital Signs-as noted below Exam: General-well appearing female, in hospital gown , no sign distress, appears to be anxious , conversing Eyes-sclera non icteric , PERRLA/EOMI ENT-normal exam , hearing grossly normal, no erythema or exudate in oropharynx Neck-no thyromegaly , trachea midline Lungs-no wheeze or rales . normal air entry Heart-regular S1/S2, no JVD , no lower ext edema Abdomen-soft, non tender , active bowel sound Extremities-no rash or deformity Neuro-AAO x3, no focal deficit Lab data as noted below. 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 RETROPERITONEAL EXTENSIVE LYMPHADENOPATHY : presented with low back pain for weeks , associated with poor appetite , wt loss , increased tiredness and fatigue -CT abdomen pelvis with significant retroperitoneal lymphadenopathy highly suspicious for lymphoproliferative disease/ lymphoma -Heme onc consulted , appreciate input -pt will need Tissue biopsy -D/w Radiology regarding CT guided biopsy of retroperitoneal LN scheduled for CT guided biopsy tomorrow at 10 am Lower back pain/rib pain: -Likely multifactorial due to degenerative changes, ?lymphoproliferative disease -Encouraged ambulation, PT/OT eval due to deconditioning -Pain control with home oxycodone -cont Bowel regimen -ordered for heating pad DM II: -Hgb a1c of 8.6 on 08/06/17 -Recent episodes of hypoglycemia at home 2/2 poor po intake -Hold home regimen -SSI while in-patient -BSG checks AC HS AVINASH on CKD III: -Worsening renal function over 48 hrs -Cr increased from 1.2 to 1.5 -GFR decreased to baseline of 51 to 1.1 -given IVF resuscitation -Cr improved to approx baseline -monitor PRP COPD: -Stable -No SOB, lungs are clear -Continue home inhalers -2L O2 NC qHS Mixed systolic and diastolic HF: -LV systolic dysfunction with EF of 50-55% -Compensated -Bumex held until renal function improves -Cont lisinopril, imdur, coreg CAD (s/p stent): -Stable. no CP -ASA, plavix held due to potential biopsy tomorrow GERD: -Continue H2 kassandra and PPI Anxiety: -Home Xanax PRN DVT PROPHYLAXIS Scd and teds for biopsy /procedure DISPOSITION lives at home , was independent in her ADL's prior to admission uses a walker and Cane as needed for assistance reports of increased fatigue and weakness Pt /Ot eval prior to return home will benefit form home health /Home PT Medicine follow up with Dr Davenport at [facility] will need Heme Onc follow up with Dr Anderson at [facility] update given to Family -sister and niece present at bedside Vital Signs: Date Time Temp Pulse Resp B/P (MAP) Pulse Ox O2 Delivery O2 Flow Rate FiO2 08/27/17 08:56 100 Nasal Cannula 2.0 Humidified Oxygen 08/27/17 07:57 36.4 82 24 142/69 (93) 100 Nasal Cannula 2.0 Humidified Oxygen 08/27/17 04:08 36.6 72 20 146/63 (90) 94 Room Air 08/27/17 00:00 Nasal Cannula 2.0 08/26/17 23:52 36.4 61 16 117/64 (81) 97 Nasal Cannula 2.0 08/26/17 20:00 Nasal Cannula 2.0 08/26/17 19:30 36.4 63 20 142/76 (98) 97 Room Air 08/26/17 16:00 Nasal Cannula 2.0 08/26/17 14:42 36.2 61 14 126/76 (93) 100 Nasal Cannula 2.0 08/26/17 11:35 36.4 63 14 123/64 (83) 100 2.0 Lab Results: Results Past 24 Hours Test 08/26/17 11:24 08/26/17 16:16 08/26/17 19:59 08/27/17 07:41 Range/Units Bedside Glucose 177 171 180 208 70-90 mg/dl
[2017-08-26] MEDS: HYDROmorphone INJ 0.5 MG/0.5 ML SYR IV PRN (17:51)
[2017-08-26] MEDS ORDERED: BISACODYL 5 MG TABEC PO ONE (21:00)
[2017-08-26] MEDS: LIDODERM (LIDOCAINE) PATCH 5% TD SCH (21:51)
[2017-08-27] VITALS (8 sets, daily range): BP systolic 117–162; BP diastolic 63–85; PULSE 64–82; TEMP 36.3–36.6; O2SAT 94–100; BMI 31.3
[2017-08-27] MEDS: BUDESONIDE/FORMOTEROL FUMARATE 160/4.5 60 PUFFS/INHALER INH SCH ×2 (07:34→19:53)
[2017-08-27] MEDS: TIOTROPIUM BROMIDE 5 PUFF/90 MCG INH INH SCH (07:35)
[2017-08-27] MEDS: LORATADINE 10 MG TAB PO SCH (07:36)
[2017-08-27] MEDS: DOCUSATE SODIUM 100 MG CAP PO SCH ×2 (07:36→19:53)
[2017-08-27] MEDS: CARVEDILOL 3.125 MG TAB PO SCH ×2 (07:40→18:06)
[2017-08-27] MEDS: ROSUVASTATIN CALCIUM 20 MG TAB PO SCH (07:40)
[2017-08-27] MEDS: MAGNESIUM OXIDE 400 MG TAB PO SCH ×2 (07:41→19:54)
[2017-08-27] MEDS: PREGABALIN 50 MG CAP PO SCH ×2 (07:41→19:54)
[2017-08-27] MEDS: FERROUS SULFATE 325 MG TAB PO SCH ×2 (07:41→18:06)
[2017-08-27] MEDS: ISOSORBIDE MONONITRATE 30 MG TABCR PO SCH ×2 (07:41→19:54)
[2017-08-27] MEDS: CHOLECALCIFEROL 1000 INTER.UNIT TAB PO SCH (07:42)
[2017-08-27] MEDS: CYANOCOBALAMIN 500 MCG TAB (VIT B-12) PO SCH (07:42)
[2017-08-27] MEDS: ALLOPURINOL 300 MG TAB PO SCH (07:43)
[2017-08-27] MEDS: RANITIDINE HCL 150 MG TAB PO SCH ×2 (07:43→19:55)
[2017-08-27] MEDS: OXYCODONE/ACETAMINOPHEN 7.5-325 TAB PO PRN ×2 (07:44→19:55)
[2017-08-27] MEDS: LIDODERM (LIDOCAINE) PATCH 5% TD SCH (07:45)
[2017-08-27] MEDS: INSULIN ASPART 100 UNITS/ML 3 ML PEN SC SCH ×4 (08:37→20:45)
[2017-08-27] MEDS: HYDROmorphone INJ 0.5 MG/0.5 ML SYR IV PRN (09:28)
[2017-08-27] MEDS ORDERED: MRLP17 PO (09:43)
[2017-08-27] MEDS ORDERED: CLC100 PO (09:43)
--- NOTE | 2017-08-27 09:56 | Progress Note ---
Progress Note Date of Service Aug 27, 2017. Progress Note ATTENDING NOTE : pt was scheduled to have CT guided LN biopsy of retroperitoneal Lymphadenopathy today received call form Radiology -most of the LN are surrounding the left renal artery and aorta high risk for major vessel damage with attempt to CT guided approach recommend GI consult and have GI to do endoscopic biopsy of enlarged LN around the stomach and celiac area CT guided biopsy cancelled GI consult requested case d/w briefly with GI PA updated pt at bedside
--- NOTE | 2017-08-27 10:00 | Progress Note ---
Internal Med Progress Note Date of Service: Aug 27, 2017. Provider Documentation: SUBJECTIVE: mentions of having restful night had back pain early in the am , got relief with PO Percocet anxious for the LN biopsy pt is update radiology called -as the most of the enlarged LN is surrounding the left renal artery and aorta CT guided biopsy could be very risky -possible damage to major vessels is high recommend GI to do the biopsy endoscopically pt is frustrated with change of plan , worried about getting the test done and proceed to next step for treatment counselling provided to pt will wait for GI input regarding the procedure keep pt on clear diet , until GI eval OBJECTIVE: Vital Signs-as noted below Exam: General-well appearing female, in hospital gown , no sign distress, appears to be anxious , conversing Eyes-sclera non icteric , PERRLA/EOMI ENT-normal exam , hearing grossly normal, no erythema or exudate in oropharynx Neck-no thyromegaly , trachea midline Lungs-no wheeze or rales . normal air entry Heart-regular S1/S2, no JVD , no lower ext edema Abdomen-soft, non tender , active bowel sound Extremities-no rash or deformity Neuro-AAO x3, no focal deficit Lab data as noted below. 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 RETROPERITONEAL EXTENSIVE LYMPHADENOPATHY : presented with low back pain for weeks , associated with poor appetite , wt loss , increased tiredness and fatigue -CT abdomen pelvis with significant retroperitoneal lymphadenopathy highly suspicious for lymphoproliferative disease/ lymphoma -Heme onc consulted , appreciate input -pt will need Tissue biopsy staging work up : including PET-CT scan/bone marrow will be done out pt at Heme Onc office Peripheral blood smear review by Pathology : 1. Normochromic /normocytic red blood cells, rare ovalocytes , and unremarkable leukocyte 2. Blast are Schistocytes are not seen 3.The sign of myelodysplasia not seen 4. Circulating Lymphoma cells are not seen -D/w Radiology regarding CT guided biopsy of retroperitoneal LN unable to do CT guided biopsy today as the LN are encasing major vessels GI eval requested for possible endoscopic biopsy of Celiac lymphadenopathy Lower back pain/rib pain: improved after Lidoderm patch /getting PRN Percocet -Likely multifactorial due to degenerative changes, ?lymphoproliferative disease -Encouraged ambulation, PT/OT eval due to deconditioning -Pain control with home oxycodone -cont Bowel regimen -ordered for heating pad DM II: -Hgb a1c of 8.6 on 08/06/17 -Recent episodes of hypoglycemia at home 2/2 poor po intake -Hold home regimen -NovoLog 70/30 takes 62 U bid -SSI while in-patient added Basal Lantus 20 Unit BID -BSG checks AC HS AVINASH on CKD III: -Worsening renal function over 48 hrs -Cr increased from 1.2 to 1.5 -GFR decreased to baseline of 51 to 1.1 -given IVF resuscitation -Cr improved to approx baseline -monitor PRP COPD: -Stable -No SOB, lungs are clear -Continue home inhalers -2L O2 NC qHS Mixed systolic and diastolic HF: -LV systolic dysfunction with EF of 50-55% -Compensated -Bumex held until renal function improves -Cont lisinopril, imdur, coreg CAD (s/p stent): -Stable. no CP -ASA, plavix held due to potential biopsy GERD: -Continue H2 kassandra and PPI Anxiety: -Home Xanax PRN DVT PROPHYLAXIS Scd and teds for biopsy /procedure DISPOSITION lives at home , was independent in her ADL's prior to admission uses a walker and Cane as needed for assistance reports of increased fatigue and weakness Pt /Ot eval prior to return home will benefit form home health /Home PT Medicine follow up with Dr Davenport at [facility] will need Heme Onc follow up with Dr Anderson at [facility] Vital Signs: Date Time Temp Pulse Resp B/P (MAP) Pulse Ox O2 Delivery O2 Flow Rate FiO2 08/27/17 08:56 100 Nasal Cannula 2.0 Humidified Oxygen 08/27/17 07:57 36.4 82 24 142/69 (93) 100 Nasal Cannula 2.0 Humidified Oxygen 08/27/17 04:08 36.6 72 20 146/63 (90) 94 Room Air 08/27/17 00:00 Nasal Cannula 2.0 08/26/17 23:52 36.4 61 16 117/64 (81) 97 Nasal Cannula 2.0 08/26/17 20:00 Nasal Cannula 2.0 08/26/17 19:30 36.4 63 20 142/76 (98) 97 Room Air 08/26/17 16:00 Nasal Cannula 2.0 08/26/17 14:42 36.2 61 14 126/76 (93) 100 Nasal Cannula 2.0 08/26/17 11:35 36.4 63 14 123/64 (83) 100 2.0 Lab Results: Results Past 24 Hours Test 08/26/17 11:24 08/26/17 16:16 08/26/17 19:59 08/27/17 07:41 Range/Units Bedside Glucose 177 171 180 208 70-90 mg/dl
[2017-08-27] MEDS ORDERED: SENN-65 PO (10:01)
[2017-08-27] MEDS: SENNA 8.6 MG TAB PO SCH (10:35)
[2017-08-27] MEDS: POLYETHYLENE (MIRALAX) 17 GM PACK PO SCH ×2 (10:35→19:54)
[2017-08-27] MEDS ORDERED: OPTIRAY 320 IV PRN (12:00)
--- NOTE | 2017-08-27 12:28 | Gastrointestinal Consultation ---
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 Patient reports been treated by PCP w Oxycodone, also was on Prednisone and Flexeril w/o pain improvement. She has neuropathy on feet, denies any leg weakness, falls, radiation of pain from back down to legs. had CTA to r/o PE and it showed retroperitoneal lymphadenopathy. Mass encasing the aorta and L renal artery. CT abd/pelvis at [facility] showed: Peritoneal cavity: Mild infiltration of the small bowel mesentery associated with scattered prominent mesenteric lymph nodes. This may represent mesenteric panniculitis or be related to the lymphoid disease. No free fluid or gas. Lymph nodes: Multiple pathologically enlarged retroperitoneal lymph nodes noted , some forming a conglomerate in the left periaortic region. Lymphadenopathy extends into the celiac region as well as the posterior mediastinum and retrocrural regions. Numerous prominent no subcentimeter lymph nodes noted in the bilateral common and external iliac regions. Pt denies any abd pain, n/v. Though appetite low. Loss about 7-8 lbs in last 5 weeks. + Constipation. She was initially scheduled for CT guided lymph node bx, though radiologist cancelled appt today as it was felt that accessing the lymph nodes would be risky given their location encasing the renal artery/aorta. Thus GI was consulted to see if we can access the lymph nodes at the celiac region. Past Medical/Surgical History Past Medical History: See above Past Surgical History: Knee replacement D&C Cataract Carpal tunnel Cholecystectomy Family History Hypertension FATHER MOTHER Social History Smoking Status: Former Smoker Alcohol Use: occasionally Drug Use: none Occupation Status: retired Allergies Coded Allergies: Niacin (Unverified Allergy, Mild, 08/25/17) Current Medications Home Meds and Scripts Medications Dose Route/Sig Max Daily Dose Days Date Category Dose Instructions Senokot S (Senna/Docusate Sodium) 1 Tab Tab 1 Tab PO DAILY 30 08/27/17 Rx Docusate Sodium 100 Mg Cap 100 Mg PO BID 30 08/27/17 Rx over the counter take it regularly to prevent constipation while taking pain medicaions Miralax (Polyethylene) 17 Gm Pow 17 Gm PO BID 30 08/27/17 Rx over the counter take it regularly to to prevent constipation while taking pain medications Oxycodone/Acetaminophen 7.5MG/325MG 1 Tab Tab 1 Tab PO Q6H PRN 08/25/17 Reported Oxygen Gas 2 Liters NA UD 08/25/17 Reported Aspirin Ec (Aspirin) 81 Mg Tab 81 Mg PO DAILY 08/25/17 Reported Zantac (Ranitidine HCl) 150 Mg Tab 150 Mg PO BID 08/25/17 Reported Kp Ferrous Sulfate (Ferrous Sulfate) 325 Mg Tab 325 Mg PO BID 08/25/17 Reported Vitamin B-12 (Cyanocobalamin) 1,000 Mcg Tab 1,000 Mcg PO DAILY 08/25/17 Reported Proventil 0.083% 2.5MG/3ML (Albuterol Sulf) 2.5 Mg/3 Ml Nebu 2.5 Mg INH Q4 PRN 08/25/17 Reported Claritin (Loratadine) 10 Mg Tab 10 Mg PO DAILY 08/25/17 Reported Lidocaine (Lidocaine (Anorectal)) 5 % Cre 1 Appln TP Q4 PRN 08/25/17 Reported LIDOCAINE 5% OINTMENT Prinivil (Lisinopril) 5 Mg Tab 5 Mg PO DAILY 08/25/17 Reported Symbicort 160/4.5 Inhaler (Budesonide/Formoterol Fumarate) Aero 2 Puffs INH BID 08/25/17 Reported Plavix (Clopidogrel Bisulfate) 75 Mg Tab 75 Mg PO DAILY 08/25/17 Reported Crestor (Rosuvastatin Calcium) 40 Mg Tab 40 Mg PO DAILY 08/25/17 Reported Coreg (Carvedilol) 3.125 Mg Tab 3.125 Mg PO BIDM 08/25/17 Reported Bumex (Bumetanide) 1 Mg Tab 1 Mg PO DAILY 08/25/17 Reported Zyloprim (Allopurinol) 300 Mg Tab 300 Mg PO DAILY 08/25/17 Reported Lyrica (Pregabalin) 50 Mg Cap 50 Mg PO BID 08/25/17 Reported Spiriva Handihaler (Tiotropium [place]) 30 Puff/540 Mcg Aerp 1 Cap INH DAILY 08/25/17 Reported Novolog Mix 70/30 (Insulin Aspart Protamine & Asp) 1 Inj Inj 62 Units SC BIDM 08/25/17 Reported Nitrostat (Nitroglycerin) 0.4 Mg Tab 0.4 Mg UT PRN PRN 08/25/17 Reported Xanax (Alprazolam) 1 Mg Tab 0.5 Mg PO BID PRN 08/25/17 Reported 1/2 OF A 1 MG TABLET TWICE DAILY Mag-Ox (Magnesium Oxide) 400 Mg Tab 400 Mg PO BID 08/25/17 Reported Imdur Ext Rel (Isosorbide Mononitrate) 30 Mg Ertab 30 Mg PO BID 08/25/17 Reported Vitamin D (Cholecalciferol) 2,000 Unit Tab 2,000 Units PO DAILY 08/25/17 Reported Review of Systems Constitutional: + weight loss, No fever, No chills Respiratory: No cough, No shortness of breath Cardiac: No chest pain Abdomen: + constipation, No pain, No nausea, No vomiting Musculoskeletal: + see HPI (lower back pain ) Physical Exam Date Time Temp Pulse Resp B/P (MAP) Pulse Ox O2 Delivery O2 Flow Rate FiO2 08/27/17 08:56 100 Nasal Cannula 2.0 Humidified Oxygen 08/27/17 07:57 36.4 82 24 142/69 (93) 100 Nasal Cannula 2.0 Humidified Oxygen 08/27/17 04:08 36.6 72 20 146/63 (90) 94 Room Air 08/27/17 00:00 Nasal Cannula 2.0 08/26/17 23:52 36.4 61 16 117/64 (81) 97 Nasal Cannula 2.0 08/26/17 20:00 Nasal Cannula 2.0 08/26/17 19:30 36.4 63 20 142/76 (98) 97 Room Air 08/26/17 16:00 Nasal Cannula 2.0 08/26/17 14:42 36.2 61 14 126/76 (93) 100 Nasal Cannula 2.0 08/26/17 11:35 36.4 63 14 123/64 (83) 100 2.0 General Appearance: WD/WN, no apparent distress, + obese Eyes: normal inspection, PERRL, EOMI Neck: supple, no JVD, trachea midline Respiratory/Chest: normal breath sounds, no respiratory distress, no accessory muscle use Cardiovascular: regular rate, rhythm, no gallop, no murmur Abdomen: normal bowel sounds, non tender, soft Extremities: normal inspection, no pedal edema, no calf tenderness Neurologic/Psych: alert, normal mood/affect, oriented x 3 Skin: normal color, no jaundice, no rash Laboratory Results Last 24 Hours Test 08/26/17 11:24 08/26/17 16:16 08/26/17 19:59 08/27/17 07:41 Bedside Glucose 177 mg/dl 171 mg/dl 180 mg/dl 208 mg/dl Impression Patient is a 71 year old female w uncontrolled low back pain, recently underwent CTA and CT abd/pelvis which showed several lymphadenopathy. Large mass encasing aorta and L renal artery (outpt CT from [facility]). Only abdominal complaint is some constipation and 8 lbs weight loss in 5 weeks. No n/ v, pain. Initially scheduled for CT guided lymph node bx, but cancelled by radiologist as it's felt that the procedure would be at high for bleeding given the masses' location. GI consulted if we can attempt EUS guided bx instead. Plan - Will discuss case w Dr. Harvey to see if EUS guided lymph node bx is able to be attempted. -> Called by hospitalist (Dr. West) that Dr. Dumont from radiology can perform the CT guided lymph node bx. Dr. West plans to cancel GI consult
[2017-08-27 12:36] LABS: CALCIUM 9.3 mg/dl (8.5-10.1); CREATININE 1.25 mg/dl (0.60-1.20)
[2017-08-27] MEDS ORDERED: SODIUM CHLORIDE 0.9% 1000ML 1,000 ML IV SCH (13:00)
--- NOTE | 2017-08-27 14:47 | DIAGNOSTIC IMAGING REPORT ---
ABDOMEN AND PELVIS CT WITH IV CONTRAST CT DOSE: 958.66 mGycm HISTORY: Preprocedural planning. Bulky retroperitoneal adenopathy PRE CT BIOPSY TECHNIQUE: Multiaxial CT images of the abdomen and pelvis were performed following the use of intravenous contrast. A dose lowering technique was utilized adhering to the principles of ALARA. COMPARISON STUDY: CT abdomen and pelvis 08/25/2017. FINDINGS: Small left pleural effusion has slightly increased in size in the interval. Bibasilar linear consolidative and groundglass opacities suggest areas of atelectasis or scarring. Mild compressive atelectasis of the left lung base adjacent to the effusion is noted. There is no pneumoperitoneum identified. No pneumatosis. The imaged inferior cardiac chambers are moderately enlarged. Dense atherosclerosis of the mitral valve. Coronary arterial calcifications are noted. Prior cholecystectomy. The liver, spleen, and adrenal glands are unremarkable. There is moderate to severe diffuse pancreatic atrophy. Bilateral renal vascular calcifications are redemonstrated. Nonspecific bilateral perinephric stranding. No renal calculi or hydronephrosis identified. Probable cyst of the interpolar left kidney is seen, 5 mm. Ureters and urinary bladder are unremarkable. There is age-appropriate atrophy of the uterus. No definite adnexal mass lesions identified. There is moderate to extensive atherosclerosis of the abdominal aorta and iliac vascular injury. Bulky retroperitoneal adenopathy is in seen with conglomerate heterogeneous centrally low attenuating adenopathy encasing the left renal artery in the origin of the superior mesenteric artery overall measuring 7.2 x 6.6 x 12.8 cm in AP, transverse and craniocaudal dimensions respectively. Lymphadenopathy extends into the celiac region and posterior mediastinum within the retrocrural distribution bilaterally. Additional mildly prominent subcentimeter bilateral common and external iliac chain lymph nodes are also again seen. Scattered mildly prominent mid mesenteric lymph nodes are also seen with some surrounding stranding which may reflect mesenteric panniculitis or lymphoproliferative disease. There is no bowel obstruction or focal bowel wall thickening identified. Noted is mild stranding of the inferior pelvis with thickening of the left peritoneal reflection, unchanged. Mild colonic diverticulosis without diverticulitis. Moderate stool volume of the cecum. Soft tissues are unremarkable. The bones appear mildly demineralized. Multilevel advanced degenerative changes of the spine. There are remote bilateral pars defects at L5. No spondylolisthesis. IMPRESSION: 1. Redemonstration of extensive bulky adenopathy as above, most pronounced within the retroperitoneum and periaortic space. Large conglomerate adenopathy near the celiac trunk encasing the left renal artery demonstrates central low attenuation suggesting central necrosis. Again, these findings are very suspicious for lymphoproliferative disorder. 2. Small left pleural effusion. 3. Colonic diverticulosis without diverticulitis. 4. No splenomegaly identified. 5. Additional findings as above. Electronically signed by: Miguelito Levy M.D. 08/27/2017 2:46 PM Dictated Date/Time: 08/27/2017 2:35 PM
--- NOTE | 2017-08-27 15:03 | DIAGNOSTIC IMAGING REPORT ---
GUIDANCE NEEDLE PLACEMENT CLINICAL HISTORY: 71 years-old Female presenting with CT GUIDED BIOPSY OF RETROPERITONEAL LN . TECHNIQUE: Multidetector CT guided fine-needle aspiration was performed for image guided percutaneous biopsy of retroperitoneal lymphadenopathy. CT fluoroscopy was used. COMPARISON: CT performed earlier the same day. CT dose (mGy-cm): Total exam dose length product 1043.34 PROCEDURE: The risks, benefits, and alternatives of the procedure were discussed with the patient. Written informed consent was obtained. A timeout was performed to confirm patient identity. The patient was placed prone on the CT table. The left flank was prepped and draped in usual aseptic fashion. Initial maternity nurse noncontrast CT exam localized the site of left periaortic lymphadenopathy. Prior contrast enhanced CT demonstrated the renal vessels at the level of T12-L1. Therefore, the L1-2 level was targeted. The skin and subcutaneous tissue were infiltrated with 1% lidocaine for local anesthesia. Under intermittent fluoroscopic CT imaging, fine-needle aspiration was performed using 2 passes with 22-gauge 139 mm needles. Specimens were reviewed by the pathologist at the time of biopsy and were deemed adequate for diagnosis. The patient tolerated the procedure well. IMPRESSION: Successful fine-needle aspiration of the left retroperitoneal lymphadenopathy. Electronically signed by: Goran uDmont M.D. 08/27/2017 3:01 PM Dictated Date/Time: 08/27/2017 2:56 PM
[2017-08-27] MEDS ORDERED: ALUMINUM/MAGNESIUM SUSP 30 ML UDC ONE (18:10)
[2017-08-27] MEDS ORDERED: NURSING VERBAL MED ORDER ONE (18:15)
[2017-08-27] MEDS ORDERED: ALUMINUM/MAGNESIUM SUSP 30 ML UDC PO PRN (18:30)
--- NOTE | 2017-08-27 18:56 | Progress Note ---
Progress Note Date of Service Aug 27, 2017. Progress Note Got update by Radiology Pt will need a CT abdomen /pelvis with contrast to highlight the vessels Radiology will be able to CT guided biopsy after the contrast study Stat PRP shows Cr improved 1.[address] guided biopsy done today -tolerated the procedure well sample sent for Pathology IVF over night to prevent AVINASH form contrast possible discharge home tomorrow if back pain improves
[2017-08-27] MEDS: INSULIN GLARGINE SOLOSTAR 100 UNITS/ML 3 ML PEN SC SCH (20:46)
[2017-08-28] MEDS: HYDROmorphone INJ 0.5 MG/0.5 ML SYR IV PRN (03:42)
[2017-08-28 03:44] VITALS: BP 133/73; PULSE 68; TEMP 36.6; O2SAT 98
[2017-08-28 05:56] VITALS: Ht 165.1 cm; Wt 85.7 kg
[2017-08-28 06:04] LABS: HEMATOCRIT 31.1 % (37-47); MEAN CELL VOLUME 89.1 fL (80-100); MEAN CORPUSCULAR HEMOGLOBIN 27.5 pg (25-34); MEAN CORPUSCULAR HGB CONC 30.9 g/dl (32-36); MEAN PLATELET VOLUME 9.3 fL (7.4-10.4); PLATELET COUNT 259 K/uL (130-400); RED BLOOD COUNT 3.49 M/uL (4.2-5.4); WHITE BLOOD COUNT 5.46 K/uL (4.8-10.8)
[2017-08-28 06:15] LABS: ESTIMATED AVERAGE GLUCOSE 212 mg/dl; HA1C FLAG Normal (Normal)
[2017-08-28 06:33] LABS: BUN/CREATININE RATIO 12.1 (10-20); CALCIUM 9.5 mg/dl (8.5-10.1); CREATININE 1.23 mg/dl (0.60-1.20); POTASSIUM 4.9 mmol/L (3.5-5.1)
[2017-08-28 07:25] VITALS: BP 127/74; PULSE 69; TEMP 36.4; O2SAT 100
--- NOTE | 2017-08-28 07:51 | DIAGNOSTIC IMAGING REPORT ---
GUIDANCE NEEDLE PLACEMENT CLINICAL HISTORY: 71 years-old Female presenting with CT GUIDED BIOPSY OF RETROPERITONEAL LN . TECHNIQUE: Multidetector CT guided fine-needle aspiration was performed for image guided percutaneous biopsy of retroperitoneal lymphadenopathy. CT fluoroscopy was used. COMPARISON: CT performed earlier the same day. CT dose (mGy-cm): Total exam dose length product 1043.34 PROCEDURE: The risks, benefits, and alternatives of the procedure were discussed with the patient. Written informed consent was obtained. A timeout was performed to confirm patient identity. The patient was placed prone on the CT table. The left flank was prepped and draped in usual aseptic fashion. Initial health science instructor noncontrast CT exam localized the site of left periaortic lymphadenopathy. Prior contrast enhanced CT demonstrated the renal vessels at the level of T12-L1. Therefore, the L1-2 level was targeted. The skin and subcutaneous tissue were infiltrated with 1% lidocaine for local anesthesia. Under intermittent fluoroscopic CT imaging, fine-needle aspiration was performed using 2 passes with 22-gauge 139 mm needles. Specimens were reviewed by the pathologist at the time of biopsy and were deemed adequate for diagnosis. The patient tolerated the procedure well. IMPRESSION: Successful fine-needle aspiration of the left retroperitoneal lymphadenopathy. Electronically signed by: Goran Dumont M.D. 08/27/2017 3:01 PM Dictated Date/Time: 08/27/2017 2:56 PM
[2017-08-28] MEDS: RANITIDINE HCL 150 MG TAB PO SCH (08:27)
[2017-08-28] MEDS: ISOSORBIDE MONONITRATE 30 MG TABCR PO SCH (08:27)
[2017-08-28] MEDS: PREGABALIN 50 MG CAP PO SCH (08:27)
[2017-08-28] MEDS: MAGNESIUM OXIDE 400 MG TAB PO SCH (08:28)
[2017-08-28] MEDS: ALLOPURINOL 300 MG TAB PO SCH (08:28)
[2017-08-28] MEDS: CHOLECALCIFEROL 1000 INTER.UNIT TAB PO SCH (08:28)
[2017-08-28] MEDS: POLYETHYLENE (MIRALAX) 17 GM PACK PO SCH (08:28)
[2017-08-28] MEDS: DOCUSATE SODIUM 100 MG CAP PO SCH (08:28)
[2017-08-28] MEDS: CYANOCOBALAMIN 500 MCG TAB (VIT B-12) PO SCH (08:28)
[2017-08-28] MEDS: SENNA 8.6 MG TAB PO SCH (08:28)
[2017-08-28] MEDS: ROSUVASTATIN CALCIUM 20 MG TAB PO SCH (08:29)
[2017-08-28] MEDS: LORATADINE 10 MG TAB PO SCH (08:29)
[2017-08-28] MEDS: CARVEDILOL 3.125 MG TAB PO SCH (08:29)
[2017-08-28] MEDS: BUDESONIDE/FORMOTEROL FUMARATE 160/4.5 60 PUFFS/INHALER INH SCH (08:30)
[2017-08-28] MEDS: FERROUS SULFATE 325 MG TAB PO SCH (08:30)
[2017-08-28] MEDS: TIOTROPIUM BROMIDE 5 PUFF/90 MCG INH INH SCH (08:30)
[2017-08-28] MEDS: LIDODERM (LIDOCAINE) PATCH 5% TD SCH (08:30)
[2017-08-28] MEDS: INSULIN ASPART 100 UNITS/ML 3 ML PEN SC SCH (08:42)
[2017-08-28] MEDS: INSULIN GLARGINE SOLOSTAR 100 UNITS/ML 3 ML PEN SC SCH (08:43)
--- NOTE | 2017-08-28 09:02 | Discharge Instructions ---
Discharge Instructions Date of Service Aug 28, 2017. Admission Reason for Admission: Abnormal Ct Of The Abdomen, Lower Back Pain Discharge Discharge Diagnosis / Problem: BACK PAIN /ENLARGED LYMPH NODES OF ABDOMEN Discharge Goals Goal(s): Decrease discomfort, Improve function, Increase independence, Improve disease control, Diagnostic testing, Therapeutic intervention Activity Recommendations Activity Limitations: resume your previous activity . Instructions / Follow-Up Instructions / Follow-Up HOSPITAL FOLLOW UP : 09/01/2017 3:00 PM Kota Davenport DO General Internal Medicine [facility] ONC FOLLOW UP WITH DR MISAEL DUBON IN 2 WEEKS, OFFICE WILL CALL WITH APPOINTMENT Current Hospital Diet Patient's current hospital diet: Diabetes Type 2 Diet, AHA Diet (Heart Healthy) Discharge Diet Recommended Diet: AHA Diet (Heart Healthy), Diabetes Type 2 Diet Pending Studies Studies pending at discharge: no Laboratory Results Hemoglobin A1c Test 08/28/17 05:38 Range/Units Estimated Average Glucose 212 mg/dl Hemoglobin A1c 9.0 H 4.5-5.6 % Medical Emergencies . Who to Call and When: Medical Emergencies: If at any time you feel your situation is an emergency, please call 911 immediately. . Non-Emergent Contact Non-Emergency issues call your: Primary Care Provider . . "Provider Documentation" section prepared by Veronica West. . VTE Core Measure Inpt VTE Proph given/why not?: SCD's
[2017-08-28 09:34] VITALS: BP 127/74; PULSE 69; TEMP 36.4; O2SAT 100
--- NOTE | 2017-08-28 11:37 | Progress Note ---
Internal Med Progress Note Date of Service: Aug 28, 2017. Provider Documentation: SUBJECTIVE: Sitting up on chair , no complain of back pain no pain or discomfort feels week enough to go home today daughter her to provide a ride OBJECTIVE: Vital Signs-as noted below Exam: General-well appearing female, in hospital gown , no sign distress, appears to be anxious , conversing Eyes-sclera non icteric , PERRLA/EOMI ENT-normal exam , hearing grossly normal, no erythema or exudate in oropharynx Neck-no thyromegaly , trachea midline Lungs-no wheeze or rales . normal air entry Heart-regular S1/S2, no JVD , no lower ext edema Abdomen-soft, non tender , active bowel sound Extremities-no rash or deformity Neuro-AAO x3, no focal deficit Lab data as noted below. 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 RETROPERITONEAL EXTENSIVE LYMPHADENOPATHY : presented with low back pain for weeks , associated with poor appetite , wt loss , increased tiredness and fatigue -CT abdomen pelvis with significant retroperitoneal lymphadenopathy highly suspicious for lymphoproliferative disease/ lymphoma -Heme onc consulted , appreciate input -has CT guided retroperitoneal LN biopsy pathology result pending staging work up : including PET-CT scan/bone marrow will be done out pt at Heme Onc office Peripheral blood smear review by Pathology : 1. Normochromic /normocytic red blood cells, rare ovalocytes , and unremarkable leukocyte 2. Blast are Schistocytes are not seen 3.The sign of myelodysplasia not seen 4. Circulating Lymphoma cells are not seen -pt is stable to be discharged today -will have follow up with heme onc in office in next 1-2 weeks Lower back pain/rib pain: Resolved with pain meds -Likely multifactorial due to degenerative changes, ?lymphoproliferative disease -Pain control with home oxycodone -cont Bowel regimen DM II: -Hgb a1c of 8.6 on 08/06/17 -SSI while in-patient home regimen resumes on discharge AVINASH on CKD III: resolved Cr at baseline 1.2 COPD: -Stable -No SOB, lungs are clear -Continue home inhalers -2L O2 NC qHS Mixed systolic and diastolic HF: -LV systolic dysfunction with EF of 50-55% -Compensated -Cont lisinopril, imdur, coreg -pt asked to hold Bumex , CAD (s/p stent): -Stable. no CP -ASA, Plavix resumed GERD: -Continue H2 kassandra and PPI Anxiety: -Home Xanax PRN DVT PROPHYLAXIS Scd and teds for biopsy /procedure DISPOSITION stable to be discharged home today Medicine follow up with Dr Davenport at [facility] Heme Onc follow up with Dr Anderson at [facility] Vital Signs: Date Time Temp Pulse Resp B/P (MAP) Pulse Ox O2 Delivery O2 Flow Rate FiO2 08/28/17 09:34 36.4 69 18 100 Room Air Nasal Cannula 08/28/17 08:00 Room Air 08/28/17 07:25 36.4 69 18 127/74 (91) 100 Nasal Cannula 2.0 08/28/17 03:44 36.6 68 20 133/73 (93) 98 Nasal Cannula 2.0 08/28/17 00:08 Nasal Cannula 2.0 08/27/17 23:46 36.5 67 18 136/72 (93) 97 2.0 08/27/17 20:00 Nasal Cannula 2.0 08/27/17 19:41 36.3 70 20 162/63 (96) 100 Nasal Cannula 2.0 08/27/17 16:00 Nasal Cannula 2.0 08/27/17 15:04 36.3 64 14 138/85 (102) 100 Nasal Cannula 2.0 08/27/17 15:04 36.3 69 18 147/81 (103) 100 Nasal Cannula 2.0 Lab Results: Results Past 24 Hours Test 08/27/17 11:59 08/27/17 14:00 08/27/17 16:32 08/27/17 19:39 Range/Units Sodium Level 138 136-145 mmol/L Potassium Level 5.0 3.5-5.1 mmol/L Chloride Level 105 98-107 mmol/L Carbon Dioxide Level 28 21-32 mmol/L Anion Gap 5.0 3-11 mmol/L Blood Urea Nitrogen 17 7-18 mg/dl Creatinine 1.25 0.60-1.20 mg/dl Est Creatinine Clear Calc Drug Dose 44.5 ml/min Estimated GFR () 50.1 Estimated GFR (Non- 43.2 BUN/Creatinine Ratio 14.0 10-20 Random Glucose 213 70-99 mg/dl Calcium Level 9.3 8.5-10.1 mg/dl Bedside Glucose 189 70-90 mg/dl Uric Acid 4.9 2.6-7.2 mg/dl Lactate Dehydrogenase 239 84-246 U/L Test 08/27/17 20:12 08/28/17 05:38 08/28/17 07:39 Range/Units Bedside Glucose 184 175 70-90 mg/dl White Blood Count 5.46 4.8-10.8 K/uL Red Blood Count 3.49 4.2-5.4 M/uL Hemoglobin 9.6 12.0-16.0 g/dL Hematocrit 31.1 37-47 % Mean Corpuscular Volume 89.1 80-100 fL Mean Corpuscular Hemoglobin 27.5 25-34 pg Mean Corpuscular Hemoglobin Concent 30.9 32-36 g/dl RDW Standard Deviation 50.7 36.4-46.3 fL RDW Coefficient of Variation 15.8 11.5-14.5 % Platelet Count 259 130-400 K/uL Mean Platelet Volume 9.3 7.4-10.4 fL Sodium Level 140 136-145 mmol/L Potassium Level 4.9 3.5-5.1 mmol/L Chloride Level 104 98-107 mmol/L Carbon Dioxide Level 29 21-32 mmol/L Anion Gap 7.0 3-11 mmol/L Blood Urea Nitrogen 15 7-18 mg/dl Creatinine 1.23 0.60-1.20 mg/dl Est Creatinine Clear Calc Drug Dose 45.4 ml/min Estimated GFR () 51.1 Estimated GFR (Non- 44.1 BUN/Creatinine Ratio 12.1 10-20 Random Glucose 152 70-99 mg/dl Estimated Average Glucose 212 mg/dl Hemoglobin A1c 9.0 4.5-5.6 % Calcium Level 9.5 8.5-10.1 mg/dl
--- NOTE | 2017-08-28 11:44 | Discharge Summary ---
Discharge Summary Date of Service Aug 28, 2017. Discharge Summary Admission Date: Aug 26, 2017 at 22:10 Discharge Date: Aug 28, 2017 Discharge Disposition: Home Principal Diagnosis: BACK PAIN /ENLARGED LYMPH NODES OF ABDOMEN Procedures: CT GUIDED BIOPSY OF RETROPERITONEAL LYMPH NODE CT ABDOMEN /PELVIS WITH CONTRAST IMPRESSION: 1. Re demonstration of extensive bulky adenopathy as above, most pronounced within the retroperitoneum and periaortic space. Large conglomerate adenopathy near the celiac trunk encasing the left renal artery demonstrates central low attenuation suggesting central necrosis. Again, these findings are very suspicious for lymphoproliferative disorder. 2. Small left pleural effusion. 3. Colonic diverticulosis without diverticulitis. 4. No splenomegaly identified. 5. Additional findings as above. Consultations: HEME ONC DR MISAEL LIRA GI Medication Reconciliation New Medications: Senna/Docusate Sod (Senokot S) 1 Tab Tab 1 TAB PO DAILY for 30 Days, TAB Docusate Sodium (Docusate Sodium) 100 Mg Cap 100 MG PO BID for 30 Days, CAP over the counter take it regularly to prevent constipation while taking pain medicaions Polyethylene (Miralax) 17 Gm Pow 17 GM PO BID for 30 Days over the counter take it regularly to to prevent constipation while taking pain medications Continued Medications: Albuterol Sulf (Proventil 0.083% 2.5MG/3ML) 2.5 Mg/3 Ml Nebu 2.5 MG INH Q4 PRN for Wheezing Allopurinol (Zyloprim) 300 Mg Tab 300 MG PO DAILY Alprazolam (Xanax) 1 Mg Tab 0.5 MG PO BID PRN for Anxiety 1/2 OF A 1 MG TABLET TWICE DAILY Aspirin (Aspirin Ec) 81 Mg Tab 81 MG PO DAILY Budesonide/Formoterol Fumarate (Symbicort 160/4.5 Inhaler ) Aero 2 PUFFS INH BID Carvedilol (Coreg) 3.125 Mg Tab 3.125 MG PO BIDM Cholecalciferol (Vitamin D) 2,000 Unit Tab 2000 UNITS PO DAILY Clopidogrel Bisulfate (Plavix) 75 Mg Tab 75 MG PO DAILY Cyanocobalamin (Vitamin B-12) 1,000 Mcg Tab 1000 MCG PO DAILY Ferrous Sulfate (Kp Ferrous Sulfate) 325 Mg Tab 325 MG PO BID Home O2 Therapy (Oxygen) Gas 2 LITERS NA UD Insulin Aspart Protamine & Asp (Novolog Mix 70/30) 1 Inj Inj 62 UNITS SC BIDM take half of the dose if skipping meal Isosorbide Mononitrate Ext Rel (Imdur Ext Rel) 30 Mg Ertab 30 MG PO BID Lidocaine (Anorectal) (Lidocaine) 5 % Cre 1 APPLN TP Q4 PRN for Moderate Pain LIDOCAINE 5% OINTMENT Lisinopril (Prinivil) 5 Mg Tab 5 MG PO DAILY Loratadine (Claritin) 10 Mg Tab 10 MG PO DAILY Magnesium Oxide (Mag-Ox) 400 Mg Tab 400 MG PO BID Nitroglycerin (Nitrostat) 0.4 Mg Tab 0.4 MG UT PRN PRN for Chest Pain Oxycodone/Acetaminophen 7.5MG/325MG (Oxycodone/Acetaminophen 7.5MG/325MG) 1 Tab Tab 1 TAB PO Q6H PRN for Pain, TAB Pregabalin (Lyrica) 50 Mg Cap 50 MG PO BID Ranitidine Hcl (Zantac) 150 Mg Tab 150 MG PO BID Rosuvastatin Calcium (Crestor) 40 Mg Tab 40 MG PO DAILY Tiotropium [place] (Spiriva Handihaler) 30 Puff/540 Mcg Aerp 1 CAP INH DAILY Discontinued Medications: Bumetanide (Bumex) 1 Mg Tab 1 MG PO DAILY Referrals At Discharge Follow up Referrals: Oncology/Hematology Referral - Within 1-2 Weeks with Misael Anderson M.D. 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 Patient was initially treated for muscle spasms but treatment of prednisone and flexeril did not improve symptoms. Three weeks ago, started to experience pain under her front ribs in addition to back pain. PCP increased oxycodone dose and imaged ribs and did a CTA to rule out a PE. CTA showed adenopathy and a mass around the aorta. Kidney function has also decreased in the past week, with Cr. increasing from 1.1 to 1.5. GFR decreased from baseline of 51 to 36. Endorses poor PO intake over the past few weeks due to decreased appetite/thirst as well as an unintentional [address] Davenport advised the patient to come to ER for further evaluation of lab work as well as obtaining a CT abd/pelvis for better evaluation of the mass. Patient is endorsing dull, aching pain in her lumbosacral spine as well as anterior ribs. Describes it as constant, worse with bending forward and walking and improved with PO pain medication. Physical Exam (per Admitting): General Appearance: + moderate distress (Crying intermittently during exam ) , + obese Head: normocephalic, atraumatic Eyes: normal inspection, PERRL, sclerae normal (conjunctiva normal ) ENT: normal ENT inspection, hearing grossly normal, pharynx normal (Dry mucous membranes ) Neck: supple, no adenopathy, no JVD, trachea midline Respiratory/Chest: chest non-tender, lungs clear, normal breath sounds, no respiratory distress, no accessory muscle use Cardiovascular: regular rate, rhythm, no murmur, + pertinent finding (TTP behind anterior ribs ) Abdomen/GI: normal bowel sounds, non tender, soft, no organomegaly Back: normal inspection, no CVA tenderness, no muscle spasm, + paravertebral tenderness (lumbosacral region) Extremities/Musculoskelatal: normal inspection, no pedal edema, non-tender Neurologic/Psych: no motor/sensory deficits, alert, normal mood/affect, oriented x 3 Skin: normal color, warm/dry Hospital Course This is a 71yo F with a PMH of DM II, CKD III, COPD (requires O2 at night), 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 RETROPERITONEAL EXTENSIVE LYMPHADENOPATHY : presented with low back pain for weeks , associated with poor appetite , wt loss , increased tiredness and fatigue -CT abdomen pelvis with significant retroperitoneal lymphadenopathy highly suspicious for lymphoproliferative disease/ lymphoma -Heme onc consulted , appreciate input -has CT guided retroperitoneal LN biopsy pathology result pending staging work up : including PET-CT scan/bone marrow will be done out pt at Heme Onc office Peripheral blood smear review by Pathology : 1. Normochromic /normocytic red blood cells, rare ovalocytes , and unremarkable leukocyte 2. Blast are Schistocytes are not seen 3.The sign of myelodysplasia not seen 4. Circulating Lymphoma cells are not seen -pt is stable to be discharged today -will have follow up with heme onc in office in next 1-2 weeks Lower back pain/rib pain: Resolved with pain meds -Likely multifactorial due to degenerative changes, ?lymphoproliferative disease -Pain control with home oxycodone -cont Bowel regimen DM II: -Hgb a1c of 8.6 on 08/06/17 -SSI while in-patient home regimen resumes on discharge AVINASH on CKD III: resolved Cr at baseline 1.2 COPD: -Stable -No SOB, lungs are clear -Continue home inhalers -2L O2 NC qHS Mixed systolic and diastolic HF: -LV systolic dysfunction with EF of 50-55% -Compensated -Cont lisinopril, imdur, coreg -pt asked to hold Bumex , CAD (s/p stent): -Stable. no CP -ASA, Plavix resumed GERD: -Continue H2 kassandra and PPI Anxiety: -Home Xanax PRN DVT PROPHYLAXIS Scd and teds for biopsy /procedure DISPOSITION stable to be discharged home today Medicine follow up with Dr Davenport at [facility] Heme Onc follow up with Dr Anderson at [facility] Total time spent on discharge = 40 MINS This includes examination of the patient, discharge planning, medication reconciliation, and communication with other providers. Discharge Instructions Discharge Instructions Date of Service Aug 28, 2017. Admission Reason for Admission: Abnormal Ct Of The Abdomen, Lower Back Pain Discharge Discharge Diagnosis / Problem: BACK PAIN /ENLARGED LYMPH NODES OF ABDOMEN Discharge Goals Goal(s): Decrease discomfort, Improve function, Increase independence, Improve disease control, Diagnostic testing, Therapeutic intervention Activity Recommendations Activity Limitations: resume your previous activity . Instructions / Follow-Up Instructions / Follow-Up HOSPITAL FOLLOW UP : 09/01/2017 3:00 PM Kota Davenport DO General Internal Medicine [facility] HEME ONC FOLLOW UP WITH DR MISAEL ANDERSON IN 2 WEEKS, OFFICE WILL CALL WITH APPOINTMENT Current Hospital Diet Patient's current hospital diet: Diabetes Type 2 Diet, AHA Diet (Heart Healthy) Discharge Diet Recommended Diet: AHA Diet (Heart Healthy), Diabetes Type 2 Diet Pending Studies Studies pending at discharge: no Laboratory Results Hemoglobin A1c Test 08/28/17 05:38 Range/Units Estimated Average Glucose 212 mg/dl Hemoglobin A1c 9.0 H 4.5-5.6 % Medical Emergencies . Who to Call and When: Medical Emergencies: If at any time you feel your situation is an emergency, please call 911 immediately. . Non-Emergent Contact Non-Emergency issues call your: Primary Care Provider . . "Provider Documentation" section prepared by Veronica West. . VTE Core Measure Inpt VTE Proph given/why not?: SCD's Additional Copies To Kota Davenport D.O. Patel, Nilesh A., M.D.
--- NOTE | 2017-09-11 08:01 | EDITING REQUIRED CODING QUERY ---
CODING QUERY To promote full compliance with coding requirements relating to patient care, provider participation is requested in all cases of lunch counter manager uncertainty. Please assist us with the question(s) below: Coding Question(s): Please clarify below, in your clinical opinion, regarding the enlarged lymph nodes of abdomen with documentation of highly suspicious for lymphoproliferative disease/lymphoma. The discharge summary shows pathology result was pending and it is now resulted. ( ) Enlarged Lymph Nodes of abdomen with unknown etiology ( ) Enlarged Lymph Nodes of abdomen due to Lymphoproliferative Disease ( x ) Enlarged Lymph Nodes of abdomen due to Lymphoma ( ) Enlarged Lymph Nodes of abdomen due to other - Specify Physician's Response(s): Thank you Kim Gutierrez Principal Diagnosis: "_that condition established after study, to be chiefly responsible for occasioning the admission of the patient to the hospital for care." Co-Existing Principal Diagnosis: "_when two or more diagnoses equally meet the criteria for principal diagnosis as determined by the circumstances of admission, diagnostic work up, and/or therapy provided, and the Alphabetic Index, Tabular List, or another coding guideline does not provide sequencing direction, any one of the diagnoses may be sequenced first." "When the physician has documented what appears to be a current diagnosis in the body of the record, but has not included the diagnosis in the final diagnostic statement, the physician should be asked whether the diagnosis should be added." (Source Coding [facility] 2 QTR90. p3-4)
== END 2017-08-28 10:28 | disposition home or self-care (01) | DRG 824 ==
LOC: C.EDB 12:53 → C.4E 17:47 → EDBEDREQ 18:04 → EDBEDREQSVC 18:04 → ENRESERV 18:07 → OBSVTOIN 08-26 22:10
PROVIDERS: ADMIT Hospitalist; ATTEND Hospitalist
PROC: 079 Lymphatic and Hemic Systems, Drainage (ICD-10-PCS; principal; 2017-08-27)
DX: C85.93 Non-Hodgkin lymphoma, unspecified, intra-abdominal lymph nodes (principal); I50.42 Chronic combined systolic (congestive) and diastolic (congestive) heart failure; I13.0 Hypertensive heart and chronic kidney disease with heart failure and stage 1 through stage 4 chronic kidney disease, or unspecified chronic kidney disease; K59.00 Constipation, unspecified; E11.22 Type 2 diabetes mellitus with diabetic chronic kidney disease; N18.3 Chronic kidney disease, stage 3 (moderate); J44.9 Chronic obstructive pulmonary disease, unspecified; K21.9 Gastro-esophageal reflux disease without esophagitis; I25.10 Atherosclerotic heart disease of native coronary artery without angina pectoris; F41.9 Anxiety disorder, unspecified; Z79.899 Other long term (current) drug therapy; Z79.4 Long term (current) use of insulin; Z79.02 Long term (current) use of antithrombotics/antiplatelets; Z79.82 Long term (current) use of aspirin; Z99.81 Dependence on supplemental oxygen; Z87.891 Personal history of nicotine dependence

== ENCOUNTER → 2017-09-09 | Outpatient (CLI) | payer OTHER ==
[~2017-09-09] MED LIST changes: +ALBINS/ INH; +ALLO300T2 PO; -ASPCH81; +ASPI81TA28 PO; -ATOR-24 PO; +CARV3.12 PO; -CETI10TA84 PO; +CHOL20009 PO; +CLC100 PO; +CLOP1TAB54 PO; +CYAN10005 PO; -DFL100 PO; -EFF50 PO; +FERR1TAB13 PO; -GABA-113 PO; -GLC500 PO; -HYDC25 PO; -INSU70IN2 SC; +ISOS30TA3 PO; +LIDO4CRE10 TP; +LISI-729 PO; +LORA10TA51 PO; +LYR50 PO; +MAGN400T6 PO; -METO25TA56 PO; +MRLP17 PO; +NVLGI7030 SC; +OXGN; +OXYC7.5T66 PO; -PRLSR20 PO; +RANI150T3 PO; +ROSU40TA PO; +SENN-65 PO; +SPRIN/30 INH; -SULF800T23 PO; +SYMIN160 INH; -[UNRECOGNIZED DRUG - CODE] PO
--- NOTE | 2017-09-09 10:18 | DIAGNOSTIC IMAGING REPORT ---
PET/CT HISTORY: LYMPHOMA TECHNIQUE: PET/CT was performed from the base of the skull through the pelvis following the intravenous administration of 14.9 mCi of F18-FDG. Non-contrast CT imaging was performed over the same range without breath-hold for attenuation correction of PET images and anatomic correlation, but not for primary interpretation as it is not of standard diagnostic quality. CT DOSE: COMPARISON: Abdomen and pelvis CT 08/27/2017. FINDINGS: HEAD AND NECK: Focal soft tissue thickening measuring 1.6 cm within the left nasopharyngeal soft tissues. This demonstrates intense FDG uptake within SUV max of 7.5. There is right greater than left soft tissue prominence and moderate FDG uptake within the right palatine tonsil which measures 1.5 cm. This demonstrates an SUV max of 4.4. There is also a 1 cm focus of mild FDG uptake within the left lateral lateral retropharyngeal space on image 29 which measures an SUV max of 3.1. There is mild FDG uptake with a few left submandibular and cervical lymph nodes. Dominant left submandibular lymph node measures 11 x 6 mm and demonstrates an SUV max of 1.7. These are technically indeterminate but could represent early sites of disease. CHEST: Multiple enlarged posterior mediastinal/periesophageal lymph nodes seen at the level of the mid to distal esophagus. Dominant mid periesophageal lymph node measures 1.5 cm and demonstrates an SUV max of 15.6. There are FDG avid retrocrural lymph nodes which demonstrate an SUV max of 14.4. These have slightly increased in size. Distal periesophageal lymph nodes have also slightly increased in size with the dominant lymph node measuring 1.7 cm, previously measuring 1.0 cm. These demonstrate an SUV max of 10.8. Small left pleural effusion which has slightly increased in size. This demonstrates mild FDG uptake with an SUV max of 2.3. This represents a malignant pleural effusion. Bibasilar linear densities favor subsegmental atelectasis. No suspicious nodules. ABDOMEN/PELVIS: Below the diaphragm, tracer is distributed physiologically in the gastrointestinal and genitourinary tracts. Bulky retroperitoneal lymphadenopathy is again noted. This is increased in size. This currently measures 10 x 8 cm, previous measuring 9 x 7 cm. This demonstrates an SUV max of 17. There are few prominent left common iliac and bilateral obturator lymph nodes demonstrating minimal FDG uptake with an SUV max of 2.2. These also likely represents additional sites of disease. These are similar in size compared to the prior study. MUSCULOSKELETAL: There is no FDG-avid or destructive bone lesion. IMPRESSION: 1. Multiple FDG avid lymph nodes seen within the neck, chest, abdomen, and pelvis as described above. This is most pronounced within the retroperitoneal space. The majority of these have increased in size and are consistent with the patient's history of lymphoma. 2. Asymmetric soft tissue fullness demonstrating abnormal FDG uptake within the left nasopharyngeal soft tissues, right palatine tonsil, and left lateral retropharyngeal space as described above. This is also consistent with sites of disease. 3. FDG avid left pleural effusion consistent with a malignant pleural effusion. Electronically signed by: Arias Fowler M.D. 09/09/2017 10:17 AM Dictated Date/Time: 09/09/2017 9:55 AM
== END | disposition home or self-care (01) ==
LOC: C.PET 07:20
PROVIDERS: ATTEND Internal Medicine Hematology
DX: C85.13 Unspecified B-cell lymphoma, intra-abdominal lymph nodes (principal)

== ENCOUNTER 2017-09-20 10:52 | Inpatient (IN) | payer OTHER ==
[~2017-09-20] VITALS: Ht 165.1 cm; Wt 85.1 kg
[2017-09-20] VITALS (16 sets, daily range): BP systolic 96–189; BP diastolic 40–91; PULSE 72–85; TEMP 36.4–38.8; O2SAT 97–100; Ht 165.1 cm; Wt 85.1 kg
[2017-09-20] MEDS: FENTANYL CITRATE INJ 50 MCG/1 ML 2 ML VIAL IV SCH ×3 (10:00→18:00)
[~2017-09-20 10:52] MED LIST changes: +ETOMIDATE 2 MG/ML 20 ML VIAL IV ONE; +ROCURONIUM BROMIDE 10 MG/ML 10 ML VIAL IV ONE
[2017-09-20] MEDS ORDERED: SODIUM CHLORIDE 0.9% 1000ML 1,000 ML IV SCH (11:00)
[2017-09-20 11:23] LABS: BASO % 0.2 %; BASO ABS # 0.02 K/uL (0-0.2); EOS % 0.1 %; EOS ABS # 0.01 K/uL (0-0.5); HEMATOCRIT 33.4 % (37-47); HEMOGLOBIN 10.9 g/dL (12.0-16.0); IG# 0.02 K/uL (0.00-0.02); LYMPH % 6.4 %; LYMPH ABS # 0.59 K/uL (1.2-3.4); MEAN CELL VOLUME 88.8 fL (80-100); MEAN CORPUSCULAR HGB CONC 32.6 g/dl (32-36); MEAN PLATELET VOLUME 9.6 fL (7.4-10.4); MONO % 5.6 %; MONO ABS # 0.52 K/uL (0.11-0.59); NEUT % 87.5 %; NEUT ABS # 8.13 K/uL (1.4-6.5); PLATELET COUNT 232 K/uL (130-400); RED CELL DISTRIBUTION WIDTH CV 16.5 % (11.5-14.5); RED CELL DISTRIBUTION WIDTH SD 53.5 fL (36.4-46.3); WHITE BLOOD COUNT 9.29 K/uL (4.8-10.8)
[2017-09-20 11:27] LABS: ISTAT CREATININE 1.5 mg/dl (0.6-1.3); ISTAT IONIZED CALCIUM 1.29 mmol/l (1.12-1.32); ISTAT POTASSIUM 5.2 mEq/L (3.3-5.0)
--- NOTE | 2017-09-20 11:30 | DIAGNOSTIC IMAGING REPORT ---
CHEST ONE VIEW PORTABLE HISTORY: 71 years-old Female confirm ETT status post intubation. The patient was found unresponsive. COMPARISON: Chest radiograph 08/25/2017 TECHNIQUE: Supine AP view of the chest FINDINGS: Cardiac silhouette is upper limits of normal. Linear subsegmental bibasilar opacities suggest atelectasis. No pneumothorax, pleural effusion or overt pulmonary edema. No lobar airspace consolidation. Bones of the chest appear grossly intact. Remote healed fracture of the distal right clavicle. Atherosclerosis of the aorta. Endotracheal tube terminates 6 mm superior to the vishal coursing towards the right mainstem bronchus. IMPRESSION: 1. Endotracheal tube terminates 6 mm superior to the vishal coursing towards the right mainstem bronchus. Retraction of approximately 2.5 cm with follow-up imaging recommended. 2. Probable bibasilar atelectasis. The above report was generated using voice recognition software. It may contain grammatical, syntax or spelling errors. Electronically signed by: Miguelito Levy M.D. 09/20/2017 11:28 AM Dictated Date/Time: 09/20/2017 11:26 AM
--- NOTE | 2017-09-20 11:34 | DIAGNOSTIC IMAGING REPORT ---
HEAD WITHOUT CONTRAST (CT) CLINICAL HISTORY: 71 years-old Female with Stroke. Acute strokelike symptoms . History of lymphoma TECHNIQUE: Multiple axial CT images of the head were obtained without contrast. A dose lowering technique was utilized adhering to the principles of ALARA. CT DOSE: 614.27 mGy.cm COMPARISON: PET CT 09/09/2017. FINDINGS: No acute intracranial hemorrhage, midline shift, intracranial mass, hydrocephalus, territorial ischemia or abnormal extra-axial collection. Mild brain atrophy. The calvarium is intact. The mastoid air cells, and middle ear cavities are clear. Mucosal secretions are noted within the nasal turbinates and nasopharynx. Mild to moderate mucosal thickening of the ethmoid air cells. Remaining paranasal sinuses are clear. There is hypoplasia of the left frontal sinus. Soft tissues are unremarkable. Prior bilateral cataract repair. IMPRESSION: No acute intracranial abnormality. The above report was generated using voice recognition software. It may contain grammatical, syntax or spelling errors. Electronically signed by: Miguelito Levy M.D. 09/20/2017 11:33 AM Dictated Date/Time: 09/20/2017 11:29 AM
[2017-09-20 11:43] LABS: BLOOD UREA NITROGEN 30 mg/dl (7-18); CARBON DIOXIDE 29 mmol/L (21-32); CREATININE 1.53 mg/dl (0.60-1.20); GLUCOSE 67 mg/dl (70-99); POTASSIUM 5.1 mmol/L (3.5-5.1); SODIUM 137 mmol/L (136-145)
[2017-09-20 11:49] LABS: CKMB 0.6 ng/ml (0.5-3.6)
[2017-09-20 12:14] LABS: INR 1.1 (0.9-1.1); PTT PATIENT 30.8 SECONDS (21.0-31.0)
--- NOTE | 2017-09-20 12:18 | EMERGENCY ROOM VISIT NOTE ---
History Report prepared by Lucy: Bebo Schulte Under the Supervision of: Dr. Juan Diego Richards M.D. First contact with patient: 10:54 Stated Complaint: STROKE History of Present Illness The patient is a 71 year old female who presents to the Emergency Room brought in by EMS with constant unresponsiveness. This HPI is limited secondary to patient's unresponsiveness. Per EMS, the patient was last known well at 2099September 19, 2017 and the family discovered her unresponsive this morning [employer]. Her GCS was 7 upon arrival. The patient has a history of stomach cancer, stroke , diabetes, and CAD. Per family, the patient does not take her medications regularly. Source of History: EMS History Limited By: other (unresponsiveness) Onset: last known well at 2099September 19, 2017 Quality: other (unresponsive) Timing: constant, other Note: The patient arrived via EMS unresponsive. Review of Systems This ROS is limited secondary to patient's unresponsiveness. Past Medical & Surgical Medical Problems: (1) Anxiety (2) CAD (coronary artery disease) (3) CKD (chronic kidney disease), stage III (4) COPD (chronic obstructive pulmonary disease) (5) Diabetes mellitus, type II (6) Esophageal reflux (7) Lymphadenopathy, abdominal (8) Stomach cancer (9) Stroke (10) Systolic and diastolic CHF, chronic (11) Unresponsive state Surgical Problems: (1) Knee joint replacement status Family History Hypertension FATHER MOTHER Social History Smoking Status: Former Smoker Alcohol Use: occasionally Drug Use: none Occupation Status: retired Current/Historical Medications Scheduled Allopurinol (Zyloprim), 300 MG PO DAILY Aspirin (Aspirin Ec), 81 MG PO DAILY Budesonide/Formoterol Fumarate (Symbicort 160/4.5 Inhaler ), 2 PUFFS INH BID Carvedilol (Coreg), 3.125 MG PO BIDM Cholecalciferol (Vitamin D), 2,000 UNITS PO DAILY Clopidogrel Bisulfate (Plavix), 75 MG PO DAILY Cyanocobalamin (Vitamin B-12), 1,000 MCG PO DAILY Docusate Sodium (Colace), 1 CAP PO BID Ferrous Sulfate (Kp Ferrous Sulfate), 325 MG PO BID Home O2 Therapy (Oxygen), 2 LITERS NA UD Insulin Aspart Protamine & Asp (Novolog Mix 70/30), 62 UNITS SC BIDM Isosorbide Mononitrate Ext Rel (Imdur Ext Rel), 30 MG PO BID Lisinopril (Prinivil), 5 MG PO DAILY Loratadine (Claritin), 10 MG PO DAILY Magnesium Oxide (Mag-Ox), 400 MG PO BID Polyethylene Glycol 3350 (Miralax), 17 GM PO DAILY Pregabalin (Lyrica), 50 MG PO BID Ranitidine Hcl (Zantac), 150 MG PO BID Rosuvastatin Calcium (Crestor), 40 MG PO DAILY Tiotropium [place] (Spiriva Handihaler), 1 CAP INH DAILY Scheduled PRN Albuterol Sulf (Proventil 0.083% 2.5MG/3ML), 2.5 MG INH Q4 PRN for Wheezing Alprazolam (Xanax), 0.5 MG PO BID PRN for Anxiety Lidocaine (Anorectal) (Lidocaine), 1 APPLN TP Q4 PRN for Moderate Pain Nitroglycerin (Nitrostat), 0.4 MG UT PRN PRN for Chest Pain Oxycodone/Acetaminophen 7.5MG/325MG (Oxycodone/Acetaminophen 7.5MG/325MG), 1 TAB PO Q6H PRN for Pain Allergies Coded Allergies: Niacin (Unverified Allergy, Mild, 09/20/17) Physical Exam Vital Signs Date Time Temp Pulse Resp B/P (MAP) Pulse Ox O2 Delivery O2 Flow Rate FiO2 09/20/17 13:00 98 Mechanical Ventilator 30 09/20/17 12:35 36.3 88 18 153/65 98 Mechanical Ventilator 09/20/17 11:45 30 09/20/17 11:28 74 10 206/83 100 Ambu-Bag 09/20/17 11:11 82 14 212/78 100 Ambu-Bag 09/20/17 11:08 99 09/20/17 11:06 97 Room Air 09/20/17 11:06 82 09/20/17 10:55 88 20 121/63 99 Room Air Physical Exam GENERAL: eyes open spontaneously, no purposeful movements extensor posturing HENT: Normocephalic, atraumatic. Oropharynx dry, cracked MM. EYES: Normal conjunctiva. Sclera non-icteric. Pupils 3mm and fixed. Corneal reflex intact. NECK: Supple. No nuchal rigidity. FROM. No JVD. RESPIRATORY: Clear to auscultation. CARDIAC: Regular rate, normal rhythm. Extremities warm and well perfused. Pulses equal. ABDOMEN: Obese, soft, non-distended. No tenderness to palpation. No rebound or guarding. No masses. RECTAL: Deferred. MUSCULOSKELETAL: Chest examination reveals no tenderness. The back is symmetrical on inspection without obvious abnormality. There is no CVA tenderness to palpation. No joint edema. LOWER EXTREMITIES: Calves are equal size bilaterally and non-tender. Scant BLE edema. No discoloration. NEURO: GCS 7, extensor posturing with painful stimulus. SKIN: No rash or jaundice noted. Medical Decision & Procedures ER Provider Diagnostic Interpretation: Radiology results as stated below per my review and radiologist interpretation: CHEST ONE VIEW PORTABLE HISTORY: 71 years-old Female confirm ETT status post intubation. The patient was found unresponsive. COMPARISON: Chest radiograph 08/25/2017 TECHNIQUE: Supine AP view of the chest FINDINGS: Cardiac silhouette is upper limits of normal. Linear subsegmental bibasilar opacities suggest atelectasis. No pneumothorax, pleural effusion or overt pulmonary edema. No lobar airspace consolidation. Bones of the chest appear grossly intact. Remote healed fracture of the distal right clavicle. Atherosclerosis of the aorta. Endotracheal tube terminates 6 mm superior to the vishal coursing towards the right mainstem bronchus. IMPRESSION: 1. Endotracheal tube terminates 6 mm superior to the vishal coursing towards the right mainstem bronchus. Retraction of approximately 2.5 cm with follow-up imaging recommended. 2. Probable bibasilar atelectasis. The above report was generated using voice recognition software. It may contain grammatical, syntax or spelling errors. Electronically signed by: Miguelito Levy M.D. 09/20/2017 11:28 AM Dictated Date/Time: 09/20/2017 11:26 AM HEAD WITHOUT CONTRAST (CT) CLINICAL HISTORY: 71 years-old Female with Stroke. Acute strokelike symptoms . History of lymphoma TECHNIQUE: Multiple axial CT images of the head were obtained without contrast. A dose lowering technique was utilized adhering to the principles of ALARA. CT DOSE: 614.27 mGy.cm COMPARISON: PET CT 09/09/2017. FINDINGS: No acute intracranial hemorrhage, midline shift, intracranial mass, hydrocephalus, territorial ischemia or abnormal extra-axial collection. Mild brain atrophy. The calvarium is intact. The mastoid air cells, and middle ear cavities are clear. Mucosal secretions are noted within the nasal turbinates and nasopharynx. Mild to moderate mucosal thickening of the ethmoid air cells. Remaining paranasal sinuses are clear. There is hypoplasia of the left frontal sinus. Soft tissues are unremarkable. Prior bilateral cataract repair. IMPRESSION: No acute intracranial abnormality. The above report was generated using voice recognition software. It may contain grammatical, syntax or spelling errors. Electronically signed by: Miguelito Levy M.D. 09/20/2017 11:33 AM Dictated Date/Time: 09/20/2017 11:29 AM KUB HISTORY: Status post placement of an enteric tube OG tube placement. History of lymphoma. COMPARISON: PET CT 09/09/2017 FINDINGS: The bowel gas pattern is non-obstructive. Enteric tube has been placed with distal tip overlying the mid lumbar spine, likely within the region of the mid to distal gastric lumen. Surgical clips of the right upper abdomen suggest prior cholecystectomy. Moderate pancolonic stool is noted. Vascular calcifications. There is no organomegaly. No renal calculi. No ureteral calculi. No pneumoperitoneum or pneumatosis. No fracture. Multilevel degenerative changes of the spine. IMPRESSION: 1. Distal enteric tube overlies the mid lumbar spine, likely within the region of the mid to distal gastric lumen. 2. Nonobstructive bowel gas pattern. 3. Moderate pancolonic stool suggests constipation. Electronically signed by: Miguelito Levy M.D. 09/20/2017 1:16 PM Dictated Date/Time: 09/20/2017 1:15 PM ORBITS FOR MRI HISTORY: 71 years-old Female for MRI clearance for MRI. Unresponsive patient with acute strokelike symptoms COMPARISON: Head CT of same day TECHNIQUE: 2 views of the orbits. FINDINGS: No opaque foreign body of the orbits identified. Paranasal sinuses appear generally well aerated. No acute facial bone fracture or dislocation identified. The patient is a edentulous. IMPRESSION: No opaque foreign body identified. The above report was generated using voice recognition software. It may contain grammatical, syntax or spelling errors. Electronically signed by: Miguelito Levy M.D. 09/20/2017 1:20 PM Dictated Date/Time: 09/20/2017 1:19 PM Laboratory Results 09/20/17 11:00 Red Blood Count 3.76, Mean Corpuscular Volume 88.8, Mean Corpuscular Hemoglobin 29.0, Mean Corpuscular Hemoglobin Concent 32.6, Mean Platelet Volume 9.6, Neutrophils (%) (Auto) 87.5, Lymphocytes (%) (Auto) 6.4, Monocytes (%) (Auto) 5.6, Eosinophils (%) (Auto) 0.1, Basophils (%) (Auto) 0.2, Neutrophils # (Auto) 8.13, Lymphocytes # (Auto) 0.59, Monocytes # (Auto) 0.52, Eosinophils # (Auto) 0.01, Basophils # (Auto) 0.02 09/20/17 11:00 Test 09/20/17 11:00 09/20/17 11:11 09/20/17 11:15 09/20/17 11:42 White Blood Count 9.29 K/uL (4.8-10.8) Red Blood Count 3.76 M/uL (4.2-5.4) Hemoglobin 10.9 g/dL (12.0-16.0) Hematocrit 33.4 % (37-47) Mean Corpuscular Volume 88.8 fL (80-100) Mean Corpuscular Hemoglobin 29.0 pg (25-34) Mean Corpuscular Hemoglobin Concent 32.6 g/dl (32-36) Platelet Count 232 K/uL (130-400) Mean Platelet Volume 9.6 fL (7.4-10.4) Neutrophils (%) (Auto) 87.5 % Lymphocytes (%) (Auto) 6.4 % Monocytes (%) (Auto) 5.6 % Eosinophils (%) (Auto) 0.1 % Basophils (%) (Auto) 0.2 % Neutrophils # (Auto) 8.13 K/uL (1.4-6.5) Lymphocytes # (Auto) 0.59 K/uL (1.2-3.4) Monocytes # (Auto) 0.52 K/uL (0.11-0.59) Eosinophils # (Auto) 0.01 K/uL (0-0.5) Basophils # (Auto) 0.02 K/uL (0-0.2) RDW Standard Deviation 53.5 fL (36.4-46.3) RDW Coefficient of Variation 16.5 % (11.5-14.5) Immature Granulocyte % (Auto) 0.2 % Immature Granulocyte # (Auto) 0.02 K/uL (0.00-0.02) Est Creatinine Clear Calc Drug Dose 36.5 ml/min Estimated GFR () 39.3 Estimated GFR (Non- 33.9 BUN/Creatinine Ratio 19.3 (10-20) Calcium Level 10.0 mg/dl (8.5-10.1) Magnesium Level 2.3 mg/dl (1.8-2.4) Total Bilirubin 0.3 mg/dl (0.2-1) Direct Bilirubin < 0.1 mg/dl (0-0.2) Aspartate Amino Transf (AST/SGOT) 23 U/L (15-37) Alanine Aminotransferase (ALT/SGPT) 18 U/L (12-78) Alkaline Phosphatase 102 U/L (45-117) Total Protein 8.1 gm/dl (6.4-8.2) Albumin 3.2 gm/dl (3.4-5.0) Procalcitonin < 0.05 ng/ml (0-0.5) Random Cortisol 35.25 mcg/dl Bedside Hemoglobin 11.2 g/dl (12.0-16.0) Bedside Hematocrit 33 % (37-47) Bedside Sodium 138 mEq/L (135-144) Bedside Potassium 5.2 mEq/L (3.3-5.0) Bedside Chloride 102 mEq/L (101-112) Bedside Total CO2 28 mEq/l (24-31) Anion Gap 15.0 mmol/L (16-25) Bedside Blood Urea Nitrogen 29 mg/dl (7-18) Bedside Creatinine 1.5 mg/dl (0.6-1.3) Bedside Glucose (other) 72 mg/dl (70-99) Bedside Ionized Calcium (Kelsie) 1.29 mmol/l (1.12-1.32) Bedside Lactic Acid Venous 1.01 mmol/L (0.90-1.70) Bedside Prothrombin Time INR 1.1 (0.9-1.1) Test 09/20/17 11:53 09/20/17 12:17 Prothrombin Time 11.2 SECONDS (9.0-12.0) Prothromb Time International Ratio 1.1 (0.9-1.1) Activated Partial Thromboplast Time 30.8 SECONDS (21.0-31.0) Partial Thromboplastin Ratio 1.2 Venous Blood pH 7.36 (7.36-7.41) Venous Blood Partial Pressure CO2 51 mmHg (38.0-50.0) Venous Blood Partial Pressure O2 33 mmHg Venous Blood HCO3 28 mmol/L Venous Blood Oxygen Saturation < 60.0 % Venous Blood Base Excess 1.9 mEq/L Lactic Acid Level 1.3 mmol/L (0.4-2.0) Ammonia < 10.0 umol/L (11-32) Urine Color YELLOW Urine Appearance CLEAR (CLEAR) Urine pH 5.0 (4.5-7.5) Urine Specific [place] 1.015 (1.000-1.030) Urine Protein NEG (NEG) Urine Glucose (UA) NEG (NEG) Urine Ketones NEG (NEG) Urine Occult Blood NEG (NEG) Urine Nitrite NEG (NEG) Urine Bilirubin NEG (NEG) Urine Urobilinogen NEG (NEG) Urine Leukocyte Esterase TRACE (NEG) Urine WBC (Auto) 0 /hpf (0-5) Urine RBC (Auto) 0-4 /hpf (0-4) Urine Hyaline Casts (Auto) 1-5 /lpf (0-5) Urine Epithelial Cells (Auto) 5-10 /lpf (0-5) Urine Bacteria (Auto) NEG (NEG) Laboratory results reviewed by me Medications Administered Medications (Trade) Dose Ordered Sig/Wai Route Start Time Stop Time Status Last Admin Dose Admin Sodium Chloride 1,000 ml @ 50 mls/hr Q20H IV 09/20/17 11:00 09/20/17 14:27 DC 09/20/17 11:35 50 MLS/HR Procedure Endotracheal Intubation Indication: Airway protection. The patient was on 100% oxygen via NRB prior to the procedure. Suction, airway equipment, RSI drugs, respiratory equipment, and appropriate personnel were prepared prior to the initiation of the procedure. A time out was taken. Induction was performed with etomidate and . After observing the clinical benefit of the medications, the airway was easily visualized utilizing a direct visualization. A 8.0 size ETT tube was placed atraumatically to 22 cm using standard technique subsequently pulled back 2.5 cm after CXR demonstrated near vishal. The cuff inflated without signs of malfunction. There were bilateral breath sounds, positive colormetric change, no gastric sounds, a good capnography waveform, and post procedure pulse oximetry was 100%. No post intubation sedation required. There were no complications. ED Course 1051: The patient was evaluated in room B1. A complete history and physical exam was performed. 1130: I reassessed the patient at this time. I spoke with the patient's family and they denied any recent depression or suicidality. 1232: I spoke with yo Dejesus. We discussed the patients case. The patient will be evaluated by the [facility] for further management. Medical Decision I reviewed the patient's past medical history, medications, and the nursing notes as described above. The patient's presentation and history were concerning for ICH, CVA, overdose, seizure, encephalopathy. The patient is a 71-year-old woman with a recent diagnosis of cancer who presents to emergency department after being found unresponsive this morning with last known well of last evening at 9 PM per history of present illness. On arrival the patient was AFVSS, with GCS of 7, agonal breathing. She has extensor posturing with painful stimuli. Pupils are fixed bilaterally [address] mm. Corneal reflex intact. CT noncontrast was negative for bleed. Labs are unremarkable including WBC and lactate within normal limits. Chest x-ray shows bilateral basilar atelectasis but no clear infiltrates. Patient was intubated for airway protection given her obtundation. Patient did not require any sedation post intubation with etomidate and rocuronium. I discussed with the patients family and the reported history of depression but no recent concerns of suicidal ideation. Given no evidence for infection antibiotics deferred at this time. Case was discussed with Dr. Wyatt ICU seafood technology specialist who will manage the patient in the ICU with planned MRI and EEG pending. Case was additionally discussed with Yuliya Dejesus hospitalist who will admit patient to the ICU. Medication Reconcilliation Current Medication List: was personally reviewed by me Blood Pressure Screening Patient's blood pressure: Elevated blood pressure Blood pressure disposition: Elevated BP felt to be situational Consults Time Called: 1142 Consulting Physician: yo Dejesus Returned Call: 1232 I spoke with yo Dejesus. We discussed the patients case. The patient will be evaluated by the [facility] for further management. Impression Primary Impression: Obtundation Critical Care I have personally spent greater than 35 minutes of critical care time in the direct management of this patient. This includes bedside care, interpretation of diagnostic studies, and testing, discussion with consultants, patient, and family members, and other required patient management activities. This 35 minutes is in excess of all separately billable procedures. Scribe Attestation The scribe's documentation has been prepared under my direction and personally reviewed by me in its entirety. I confirm that the note above accurately reflects all work, treatment, procedures, and medical decision making performed by me. Departure Information Dispostion Being Evaluated By Hospitalist Kota Lopez D.O. (PCP)
[2017-09-20] MEDS ORDERED: POLY335019 PO (12:24)
[2017-09-20] MEDS ORDERED: DOCU-94 PO (12:24)
[2017-09-20] MEDS ORDERED: OPTIRAY 320 IV PRN (12:45)
--- NOTE | 2017-09-20 13:03 | Critical Care Consultation ---
Critical Care Consultation Date of Consultation: Sep 20, 2017. Attending Physician: Ron Reason for Consultation: Intubation, acute encephalopathy History of Present Illness Patient is a 71-year-old female with significant past medical history of diabetes mellitus, chronic back pain, coronary artery disease, COPD, chronic kidney disease stage III, chronic systolic and diastolic congestive heart failure, lymphoproliferative disorder, prior stroke, and intra-abdominal mass who was reportedly in her normal state of health going to bed last night. The patient's grandson found her at approximately 9 AM slumped over in her chair in which she sleeps with oxygen on and unresponsive. I reviewed the EMS run report. While in the emergency department the patient was intubated due to coma and laboratory examination and CT scan of the head was undertaken. Patient was unresponsive initially in the emergency department not responding to deep painful stimuli. There is no mention of any tonic-clonic activity History is obtained from the patient's [id number], son, EMS run report, emergency department physician, Past Medical/Surgical History As noted above in history of present illness Family History Hypertension FATHER MOTHER Social History Unable to obtain secondary to acute encephalopathy Smoking Status: Former Smoker Drug Use: none Occupation Status: retired Allergies Coded Allergies: Niacin (Unverified Allergy, Mild, 09/20/17) Home Medications Scheduled Allopurinol (Zyloprim), 300 MG PO DAILY Aspirin (Aspirin Ec), 81 MG PO DAILY Budesonide/Formoterol Fumarate (Symbicort 160/4.5 Inhaler ), 2 PUFFS INH BID Carvedilol (Coreg), 3.125 MG PO BIDM Cholecalciferol (Vitamin D), 2,000 UNITS PO DAILY Clopidogrel Bisulfate (Plavix), 75 MG PO DAILY Cyanocobalamin (Vitamin B-12), 1,000 MCG PO DAILY Docusate Sodium (Colace), 1 CAP PO BID Ferrous Sulfate (Kp Ferrous Sulfate), 325 MG PO BID Home O2 Therapy (Oxygen), 2 LITERS NA UD Insulin Aspart Protamine & Asp (Novolog Mix 70/30), 62 UNITS SC BIDM Isosorbide Mononitrate Ext Rel (Imdur Ext Rel), 30 MG PO BID Lisinopril (Prinivil), 5 MG PO DAILY Loratadine (Claritin), 10 MG PO DAILY Magnesium Oxide (Mag-Ox), 400 MG PO BID Polyethylene Glycol 3350 (Miralax), 17 GM PO DAILY Pregabalin (Lyrica), 50 MG PO BID Ranitidine Hcl (Zantac), 150 MG PO BID Rosuvastatin Calcium (Crestor), 40 MG PO DAILY Tiotropium Johnson (Spiriva Handihaler), 1 CAP INH DAILY Scheduled PRN Albuterol Sulf (Proventil 0.083% 2.5MG/3ML), 2.5 MG INH Q4 PRN for Wheezing Alprazolam (Xanax), 0.5 MG PO BID PRN for Anxiety Lidocaine (Anorectal) (Lidocaine), 1 APPLN TP Q4 PRN for Moderate Pain Nitroglycerin (Nitrostat), 0.4 MG UT PRN PRN for Chest Pain Oxycodone/Acetaminophen 7.5MG/325MG (Oxycodone/Acetaminophen 7.5MG/325MG), 1 TAB PO Q6H PRN for Pain Current Inpatient Medications Current Inpatient Medications Medications (Trade) Dose Ordered Sig/Wai Route Start Time Stop Time Status Last Admin Dose Admin Sodium Chloride 1,000 ml @ 50 mls/hr Q20H IV 09/20/17 11:00 10/20/17 10:59 09/20/17 11:35 50 MLS/HR Ioversol (Optiray 320) 125 ml UD PRN IV 09/20/17 12:45 09/24/17 12:44 UNV Review of Systems Unable to obtain secondary to acute encephalopathy Physical Exam Date Time Temp Pulse Resp B/P (MAP) Pulse Ox O2 Delivery O2 Flow Rate FiO2 09/20/17 12:35 36.3 88 18 153/65 98 Mechanical Ventilator 09/20/17 11:45 30 09/20/17 11:28 74 10 206/83 100 Ambu-Bag 09/20/17 11:11 82 14 212/78 100 Ambu-Bag 09/20/17 11:08 99 09/20/17 11:06 97 Room Air 09/20/17 11:06 82 09/20/17 10:55 88 20 121/63 99 Room Air General Appearance: WD/WN, no apparent distress Head: normocephalic, atraumatic Eyes: other (pupils are equal round and sluggishly reactive to light going from proximately 5 mm to 3 mm) ENT: other (intubation, no gag reflex within posterior hypopharynx stimulated with tender pressor) Neck: trachea midline Respiratory: rhonchi (bilaterally) Cardiovasular: regular rate/rhythm, normal S1S2 Abdomen: no masses Genitourinary - Female: other (Diaz present) Upper Extremities: no edema Lower Extremities: edema (1+) Neuro: other (GCS 3T) Reflexes: patellar (R) (0), patellar (L) (0) Babinski Testing: right (equivocal), left (equivocal) Laboratory Results Last 24 Hours Test 09/20/17 11:00 09/20/17 11:11 09/20/17 11:15 09/20/17 11:42 White Blood Count 9.29 K/uL Red Blood Count 3.76 M/uL Hemoglobin 10.9 g/dL Hematocrit 33.4 % Mean Corpuscular Volume 88.8 fL Mean Corpuscular Hemoglobin 29.0 pg Mean Corpuscular Hemoglobin Concent 32.6 g/dl Platelet Count 232 K/uL Mean Platelet Volume 9.6 fL Neutrophils (%) (Auto) 87.5 % Lymphocytes (%) (Auto) 6.4 % Monocytes (%) (Auto) 5.6 % Eosinophils (%) (Auto) 0.1 % Basophils (%) (Auto) 0.2 % Neutrophils # (Auto) 8.13 K/uL Lymphocytes # (Auto) 0.59 K/uL Monocytes # (Auto) 0.52 K/uL Eosinophils # (Auto) 0.01 K/uL Basophils # (Auto) 0.02 K/uL RDW Standard Deviation 53.5 fL RDW Coefficient of Variation 16.5 % Immature Granulocyte % (Auto) 0.2 % Immature Granulocyte # (Auto) 0.02 K/uL Sodium Level 137 mmol/L Potassium Level 5.1 mmol/L Chloride Level 103 mmol/L Carbon Dioxide Level 29 mmol/L Anion Gap 6.0 mmol/L 15.0 mmol/L Blood Urea Nitrogen 30 mg/dl Creatinine 1.53 mg/dl Est Creatinine Clear Calc Drug Dose 36.5 ml/min Estimated GFR () 39.3 Estimated GFR (Non- 33.9 BUN/Creatinine Ratio 19.3 Random Glucose 67 mg/dl Calcium Level 10.0 mg/dl Magnesium Level 2.3 mg/dl Total Creatine Kinase 32 U/L Creatine Kinase MB 0.6 ng/ml Creatine Kinase MB Ratio 1.9 Troponin I < 0.015 ng/ml Random Cortisol 35.25 mcg/dl Bedside Hemoglobin 11.2 g/dl Bedside Hematocrit 33 % Bedside Sodium 138 mEq/L Bedside Potassium 5.2 mEq/L Bedside Chloride 102 mEq/L Bedside Total CO2 28 mEq/l Bedside Blood Urea Nitrogen 29 mg/dl Bedside Creatinine 1.5 mg/dl Bedside Glucose (other) 72 mg/dl Bedside Ionized Calcium (Kelsie) 1.29 mmol/l Bedside Lactic Acid Venous 1.01 mmol/L Bedside Prothrombin Time INR 1.1 Test 09/20/17 11:53 09/20/17 12:17 Prothrombin Time 11.2 SECONDS Prothromb Time International Ratio 1.1 Activated Partial Thromboplast Time 30.8 SECONDS Partial Thromboplastin Ratio 1.2 Venous Blood pH 7.36 Venous Blood Partial Pressure CO2 51 mmHg Venous Blood Partial Pressure O2 33 mmHg Venous Blood HCO3 28 mmol/L Venous Blood Oxygen Saturation < 60.0 % Venous Blood Base Excess 1.9 mEq/L Lactic Acid Level 1.3 mmol/L Ammonia < 10.0 umol/L Diagnostic Results HEAD ANGIO WITH CONTRAST HISTORY: 71 years-old Female presents with acute strokelike symptoms with history of lymphoma COMPARISON: CT head of same day at 11:20 AM TECHNIQUE: CTA of the head was obtained following the intravenous administration of 94 mL Optiray 320. 3-D coronal and sagittal MIPS were obtained from the axial data set and submitted for review. All measurements were obtained according to NASCET criteria. A dose lowering technique was used consistent with the principals of KELLIE. FINDINGS: There is moderate to extensive atherosclerotic plaquing noted involving the bilateral cavernous and clinoid portions of the internal carotid arteries. These findings appear to cause approximately 50% luminal narrowing. The bilateral middle and anterior cerebral arteries are patent without high-grade stenosis, aneurysm or proximal branch occlusion. Anterior communicating artery is unremarkable. The right vertebral artery is dominant. Atherosclerotic plaquing is noted involving the V3 and V4 portions of the right vertebral artery without high-grade narrowing. The basilar and bilateral posterior cerebral arteries are patent. The major venous sinuses are patent and within normal limits. Endotracheal and enteric tubes are seen within the oral cavity. No pathologic adenopathy identified. No acute intracranial abnormality identified. No skull fracture. Mucosal secretions are seen within the nasopharynx. IMPRESSION: 1. Moderate to extensive atherosclerotic plaquing involves the bilateral cavernous and clinoid portions of the internal carotid arteries causing approximately 50% luminal narrowing. 2. No high-grade stenosis, aneurysm, dissection or proximal branch occlusion identified. The above report was generated using voice recognition software. It may contain grammatical, syntax or spelling errors. Electronically signed by: Miguelito Levy M.D. 09/20/2017 2:27 PM HEAD WITHOUT CONTRAST (CT) CLINICAL HISTORY: 71 years-old Female with Stroke. Acute strokelike symptoms . History of lymphoma TECHNIQUE: Multiple axial CT images of the head were obtained without contrast. A dose lowering technique was utilized adhering to the principles of ALARA. CT DOSE: 614.27 mGy.cm COMPARISON: PET CT 09/09/2017. FINDINGS: No acute intracranial hemorrhage, midline shift, intracranial mass, hydrocephalus, territorial ischemia or abnormal extra-axial collection. Mild brain atrophy. The calvarium is intact. The mastoid air cells, and middle ear cavities are clear. Mucosal secretions are noted within the nasal turbinates and nasopharynx. Mild to moderate mucosal thickening of the ethmoid air cells. Remaining paranasal sinuses are clear. There is hypoplasia of the left frontal sinus. Soft tissues are unremarkable. Prior bilateral cataract repair. IMPRESSION: No acute intracranial abnormality. The above report was generated using voice recognition software. It may contain grammatical, syntax or spelling errors. Electronically signed by: Miguelito Levy M.D. 09/20/2017 11:33 AM Dictated Date/Time: 09/20/2017 11:29 AM I reviewed the image in the radiology report for the chest x-ray obtained 2016 I reviewed the radiology report for the KUB dated 09/20/2017 I reviewed the radiology report of the radiograph orbits dated 09/20/2017 Assessment & Plan Reason Critically Ill: Acute encephalopathy and coma PLAN: Neuro: Acute encephalopathy * No evidence of intracranial hemorrhage * Ordered EEG to rule out nonconvulsive status epilepticus * CTA of head and neck: No high-grade stenosis * Ordered MRI brain to exclude CVA * This may be all toxic metabolic, patient does have a history of newly diagnosed lymphoproliferative disorder. There may be secondary effects related to pain medications, however this degree of coma I suspect that there has been some form of neurological insult * Holding home Lyrica and narcotics, sedation per protocol Resp: COPD * Mechanical ventilation * Nebulizers when necessary * Daily spontaneous awakening trials and daily spontaneous breathing trials CV: History of coronary artery disease * Continue aspirin * Continue statin * Continue Coreg * Holding lisinopril * Holding Imdur * Holding nitroglycerin Fluids/Renal: Chronic kidney disease stage III * Fluids running Normosol 100 ML's per hour ID: * Procalcitonin negative, holding antibiotic coverage at this time GI/Nutrition: * Nothing by mouth * PPI for GI prophylaxis Heme: Anemia * Heparin 5000 3 times a day for DVT prophylaxis Endocrine: History poorly controlled diabetes * A1c obtained 08/28/2017 was 9 * Insulin sliding scale * Glycemic control consult CODE STATUS: Full I discussed the patient's condition with her [id number] and son. Patient critically ill due to coma. I have personally spent 95 minutes of critical care time in the direct management of this patient. This is a life/limb threatening event. This includes time spent evaluating patient, direct bedside care, chart review, placing orders, interpretation of diagnostic studies, discussion with consultants, patient, and family members, as well as other required patient management activities. This time is exclusive of all separately billable procedures, and teaching time and separate from and in addition to any other critical care service time.
[2017-09-20] MEDS ORDERED: ICU PROTOCOL FOR HYPERGLYCEMIA PRN (13:15)
[2017-09-20] MEDS ORDERED: GLUCAGON FOR INJ 1 MG VIAL SQ PRN (13:15)
[2017-09-20] MEDS ORDERED: GLUCOSE 40% GEL 15 GM TUBE PO PRN (13:15)
[2017-09-20] MEDS ORDERED: GLUCOSE 10 TABS/TUBE PO PRN (13:15)
--- NOTE | 2017-09-20 13:18 | DIAGNOSTIC IMAGING REPORT ---
KUB HISTORY: Status post placement of an enteric tube OG tube placement. History of lymphoma. COMPARISON: PET CT 09/09/2017 FINDINGS: The bowel gas pattern is non-obstructive. Enteric tube has been placed with distal tip overlying the mid lumbar spine, likely within the region of the mid to distal gastric lumen. Surgical clips of the right upper abdomen suggest prior cholecystectomy. Moderate pancolonic stool is noted. Vascular calcifications. There is no organomegaly. No renal calculi. No ureteral calculi. No pneumoperitoneum or pneumatosis. No fracture. Multilevel degenerative changes of the spine. IMPRESSION: 1. Distal enteric tube overlies the mid lumbar spine, likely within the region of the mid to distal gastric lumen. 2. Nonobstructive bowel gas pattern. 3. Moderate pancolonic stool suggests constipation. Electronically signed by: Miguelito Levy M.D. 09/20/2017 1:16 PM Dictated Date/Time: 09/20/2017 1:15 PM
--- NOTE | 2017-09-20 13:21 | DIAGNOSTIC IMAGING REPORT ---
ORBITS FOR MRI HISTORY: 71 years-old Female for MRI clearance for MRI. Unresponsive patient with acute strokelike symptoms COMPARISON: Head CT of same day TECHNIQUE: 2 views of the orbits. FINDINGS: No opaque foreign body of the orbits identified. Paranasal sinuses appear generally well aerated. No acute facial bone fracture or dislocation identified. The patient is a edentulous. IMPRESSION: No opaque foreign body identified. The above report was generated using voice recognition software. It may contain grammatical, syntax or spelling errors. Electronically signed by: Miguelito Levy M.D. 09/20/2017 1:20 PM Dictated Date/Time: 09/20/2017 1:19 PM
--- NOTE | 2017-09-20 14:28 | DIAGNOSTIC IMAGING REPORT ---
HEAD ANGIO WITH CONTRAST HISTORY: 71 years-old Female presents with acute strokelike symptoms with history of lymphoma COMPARISON: CT head of same day at 11:20 AM TECHNIQUE: CTA of the head was obtained following the intravenous administration of 94 mL Optiray 320. 3-D coronal and sagittal MIPS were obtained from the axial data set and submitted for review. All measurements were obtained according to NASCET criteria. A dose lowering technique was used consistent with the principals of KELLIE. FINDINGS: There is moderate to extensive atherosclerotic plaquing noted involving the bilateral cavernous and clinoid portions of the internal carotid arteries. These findings appear to cause approximately 50% luminal narrowing. The bilateral middle and anterior cerebral arteries are patent without high-grade stenosis, aneurysm or proximal branch occlusion. Anterior communicating artery is unremarkable. The right vertebral artery is dominant. Atherosclerotic plaquing is noted involving the V3 and V4 portions of the right vertebral artery without high-grade narrowing. The basilar and bilateral posterior cerebral arteries are patent. The major venous sinuses are patent and within normal limits. Endotracheal and enteric tubes are seen within the oral cavity. No pathologic adenopathy identified. No acute intracranial abnormality identified. No skull fracture. Mucosal secretions are seen within the nasopharynx. IMPRESSION: 1. Moderate to extensive atherosclerotic plaquing involves the bilateral cavernous and clinoid portions of the internal carotid arteries causing approximately 50% luminal narrowing. 2. No high-grade stenosis, aneurysm, dissection or proximal branch occlusion identified. The above report was generated using voice recognition software. It may contain grammatical, syntax or spelling errors. Electronically signed by: Miguelito Levy M.D. 09/20/2017 2:27 PM Dictated Date/Time: 09/20/2017 2:21 PM
[2017-09-20] MEDS ORDERED: MIDAZOLAM HCL 5 MG/ML 1 ML VIAL IV PRN (14:30)
[2017-09-20] MEDS ORDERED: PHARMACY GLYCEMIC MGMT CONSULT PRN (14:44)
[2017-09-20 14:58] LABS: ALBUMIN 3.2 gm/dl (3.4-5.0); ALKALINE PHOSPHATASE 102 U/L (45-117); ALT/SGPT 18 U/L (12-78); AST/SGOT 23 U/L (15-37); TOTAL PROTEIN 8.1 gm/dl (6.4-8.2)
--- NOTE | 2017-09-20 15:14 | Pharmacy Progress Note ---
Glycemic Control Intl Consult Date of Service Sep 20, 2017. Scope Glycemic Pharmacist consulted by Dr Wyatt on 09/20/17 for glycemic control and to write orders per [facility] inpatient glycemic control protocol Objective Weight (Kilograms): 85.900 Accuchecks BSG (last 24hrs): Test 09/20/17 11:00 Random Glucose 67 mg/dl (70-99) Laboratory Data (last 24hrs) Test 09/20/17 11:00 09/20/17 11:11 Anion Gap 6.0 mmol/L 15.0 mmol/L BUN/Creatinine Ratio 19.3 Blood Urea Nitrogen 30 mg/dl Creatinine 1.53 mg/dl Potassium Level 5.1 mmol/L Sodium Level 137 mmol/L White Blood Count 9.29 K/uL Red Blood Count 3.76 M/uL Hemoglobin 10.9 g/dL Hematocrit 33.4 % Mean Corpuscular Volume 88.8 fL Mean Corpuscular Hemoglobin 29.0 pg Mean Corpuscular Hemoglobin Concent 32.6 g/dl Platelet Count 232 K/uL Mean Platelet Volume 9.6 fL Neutrophils (%) (Auto) 87.5 % Lymphocytes (%) (Auto) 6.4 % Monocytes (%) (Auto) 5.6 % Eosinophils (%) (Auto) 0.1 % Basophils (%) (Auto) 0.2 % Neutrophils # (Auto) 8.13 K/uL Lymphocytes # (Auto) 0.59 K/uL Monocytes # (Auto) 0.52 K/uL Eosinophils # (Auto) 0.01 K/uL Basophils # (Auto) 0.02 K/uL HbA1c 9.0 % on 08/28/17 Recent Pertinent Medications Outpatient Anti-diabetic Regimen: * Novolog 70/30 62 units SC BIDM * A1c = 9 % on 08/28/17 Risk Factors for Insulin Resistance: * Diet: NPO * Mechanical Ventilation: Assessment & Plan ASSESSMENT: * 71 yo F found unresponsive at home. Intubated in ED and transferred to ICU critically ill. * On Novolog 70/30 at home - would typically use NPH as basal but would prefer not to have any peak whatsoever for critically ill patient. Will therefore transition to Lantus in house * Total outpatient insulin dose 124 units - if split 50/50 basal/bolus, that would indicate patient needs Lantus 30 units BID. However, since patient NPO, will only give this dose for BSG > 140 mg/dL and will give lower dose if BSG less than 140 mg/dL * High goal range per ICU patient * OK to have tight correction factor for severity of illness - weight based and stress of 3 to start * Low threshold to start insulin gtt PLAN FOR INPATIENT GLYCEMIC CONTROL: * Basal insulin with LANTUS SQ BID based on BSG * 10 units for BSG less than 100 mg/dL * 20 units for BSG 100-139 mg/dL * 30 units for BSG 140 mg/dL or greater * Correctional Insulin with NOVOLOG per scale Q6hrs while NPO * Goal Range: Low 140 mg/dL - High 180 mg/dL * Correction Factor: 20 mg/dL/unit * Nutritional / Prandial insulin per carb ratio of 1 unit per 6 grams CHO consumed * Please note that the plan above was derived based on current level of insulin resistance and hospital stress. These recommendations are appropriate for inpatient admission only. Plan of care upon discharge will need to be reassessed to avoid potential outpatient hypo/hyperglycemia. Thank you.
--- NOTE | 2017-09-20 15:29 | History and Physical ---
History & Physical Date & Time of Service: Sep 20, 2017 at 14:49 Chief Complaint: Lymphadenopathy,Abdominal; Unresponsive State Primary Care Physician: Kota Davenport D.O. History of Present Illness Source: patient, family, hospital records This is a 71 year old female with a PMH of DM2, CKD stage 3, COPD on nocturnal O2, diastolic CHF, CAD, GERD, anxiety; recently admitted to [facility] due to an intra -abdominal mass/lymphoma - presents after being found unresponsive. As per family members, she was doing well last evening and then when her grandson saw her in the morning, she was seated with her tongue out, unresponsiveness. She was brought over to the ED, not responsive; in an extensor position. She was intubated to protect her airway. Family denies any suicidal ideation; she does take narcotic pain medications for chronic back pain. No hx. of seizures. Past Medical/Surgical History Medical Problems: (1) Anxiety Status: Chronic (2) CAD (coronary artery disease) Status: Chronic (3) CKD (chronic kidney disease), stage III Status: Chronic (4) COPD (chronic obstructive pulmonary disease) Status: Chronic (5) Diabetes mellitus, type II Status: Chronic (6) Esophageal reflux Status: Chronic (7) Stomach cancer Status: Chronic (8) Stroke Status: Resolved (9) Systolic and diastolic CHF, chronic Status: Chronic Surgical Problems: (1) Knee joint replacement status Status: Resolved Family History Hypertension FATHER MOTHER Social History Smoking Status: Former Smoker Drug Use: none Housing status: lives alone Occupational Status: retired Allergies Coded Allergies: Niacin (Unverified Allergy, Mild, 09/20/17) Home Medications Scheduled Allopurinol (Zyloprim), 300 MG PO DAILY Aspirin (Aspirin Ec), 81 MG PO DAILY Budesonide/Formoterol Fumarate (Symbicort 160/4.5 Inhaler ), 2 PUFFS INH BID Carvedilol (Coreg), 3.125 MG PO BIDM Cholecalciferol (Vitamin D), 2,000 UNITS PO DAILY Clopidogrel Bisulfate (Plavix), 75 MG PO DAILY Cyanocobalamin (Vitamin B-12), 1,000 MCG PO DAILY Docusate Sodium (Colace), 1 CAP PO BID Ferrous Sulfate (Kp Ferrous Sulfate), 325 MG PO BID Home O2 Therapy (Oxygen), 2 LITERS NA UD Insulin Aspart Protamine & Asp (Novolog Mix 70/30), 62 UNITS SC BIDM Isosorbide Mononitrate Ext Rel (Imdur Ext Rel), 30 MG PO BID Lisinopril (Prinivil), 5 MG PO DAILY Loratadine (Claritin), 10 MG PO DAILY Magnesium Oxide (Mag-Ox), 400 MG PO BID Polyethylene Glycol 3350 (Miralax), 17 GM PO DAILY Pregabalin (Lyrica), 50 MG PO BID Ranitidine Hcl (Zantac), 150 MG PO BID Rosuvastatin Calcium (Crestor), 40 MG PO DAILY Tiotropium [place] (Spiriva Handihaler), 1 CAP INH DAILY Scheduled PRN Albuterol Sulf (Proventil 0.083% 2.5MG/3ML), 2.5 MG INH Q4 PRN for Wheezing Alprazolam (Xanax), 0.5 MG PO BID PRN for Anxiety Lidocaine (Anorectal) (Lidocaine), 1 APPLN TP Q4 PRN for Moderate Pain Nitroglycerin (Nitrostat), 0.4 MG UT PRN PRN for Chest Pain Oxycodone/Acetaminophen 7.5MG/325MG (Oxycodone/Acetaminophen 7.5MG/325MG), 1 TAB PO Q6H PRN for Pain Review of Systems Unable to obtain due to patient's mental status Physical Exam Vital Signs Date Time Temp Pulse Resp B/P (MAP) Pulse Ox O2 Delivery O2 Flow Rate FiO2 09/20/17 13:38 77 12 186/73 100 09/20/17 13:00 98 Mechanical Ventilator 30 09/20/17 12:35 36.3 88 18 153/65 98 Mechanical Ventilator 09/20/17 11:45 30 09/20/17 11:28 74 10 206/83 100 Ambu-Bag 09/20/17 11:11 82 14 212/78 100 Ambu-Bag 09/20/17 11:08 99 09/20/17 11:06 97 Room Air 09/20/17 11:06 82 09/20/17 10:55 88 20 121/63 99 Room Air General Appearance: + pertinent finding (intubated) Eyes: + pertinent finding (pupils minimally reactive to light) Respiratory/Chest: lungs clear, normal breath sounds, no respiratory distress, no accessory muscle use Cardiovascular: regular rate, rhythm, no edema, no murmur Abdomen/GI: normal bowel sounds, non tender, soft Extremities/Musculoskelatal: normal capillary refill, no pedal edema Neurologic/Psych: + pertinent finding (non-responsive, intubated) Diagnostics Laboratory Results Results Past 24 Hours Test 09/20/17 11:00 09/20/17 11:11 09/20/17 11:15 09/20/17 11:42 Range/Units White Blood Count 9.29 4.8-10.8 K/uL Red Blood Count 3.76 4.2-5.4 M/uL Hemoglobin 10.9 12.0-16.0 g/dL Hematocrit 33.4 37-47 % Mean Corpuscular Volume 88.8 80-100 fL Mean Corpuscular Hemoglobin 29.0 25-34 pg Mean Corpuscular Hemoglobin Concent 32.6 32-36 g/dl Platelet Count 232 130-400 K/uL Mean Platelet Volume 9.6 7.4-10.4 fL Neutrophils (%) (Auto) 87.5 % Lymphocytes (%) (Auto) 6.4 % Monocytes (%) (Auto) 5.6 % Eosinophils (%) (Auto) 0.1 % Basophils (%) (Auto) 0.2 % Neutrophils # (Auto) 8.13 1.4-6.5 K/uL Lymphocytes # (Auto) 0.59 1.2-3.4 K/uL Monocytes # (Auto) 0.52 0.11-0.59 K/uL Eosinophils # (Auto) 0.01 0-0.5 K/uL Basophils # (Auto) 0.02 0-0.2 K/uL RDW Standard Deviation 53.5 36.4-46.3 fL RDW Coefficient of Variation 16.5 11.5-14.5 % Immature Granulocyte % (Auto) 0.2 % Immature Granulocyte # (Auto) 0.02 0.00-0.02 K/uL Sodium Level 137 136-145 mmol/L Potassium Level 5.1 3.5-5.1 mmol/L Chloride Level 103 98-107 mmol/L Carbon Dioxide Level 29 21-32 mmol/L Anion Gap 6.0 15.0 16-25 mmol/L Blood Urea Nitrogen 30 7-18 mg/dl Creatinine 1.53 0.60-1.20 mg/dl Est Creatinine Clear Calc Drug Dose 36.5 ml/min Estimated GFR () 39.3 Estimated GFR (Non- 33.9 BUN/Creatinine Ratio 19.3 10-20 Random Glucose 67 70-99 mg/dl Calcium Level 10.0 8.5-10.1 mg/dl Magnesium Level 2.3 1.8-2.4 mg/dl Total Creatine Kinase 32 26-192 U/L Creatine Kinase MB 0.6 0.5-3.6 ng/ml Creatine Kinase MB Ratio 1.9 0-3.0 Troponin I < 0.015 0-0.045 ng/ml Procalcitonin < 0.05 0-0.5 ng/ml Random Cortisol 35.25 mcg/dl Bedside Hemoglobin 11.2 12.0-16.0 g/dl Bedside Hematocrit 33 37-47 % Bedside Sodium 138 135-144 mEq/L Bedside Potassium 5.2 3.3-5.0 mEq/L Bedside Chloride 102 101-112 mEq/L Bedside Total CO2 28 24-31 mEq/l Bedside Blood Urea Nitrogen 29 7-18 mg/dl Bedside Creatinine 1.5 0.6-1.3 mg/dl Bedside Glucose (other) 72 70-99 mg/dl Bedside Ionized Calcium (Kelsie) 1.29 1.12-1.32 mmol/l Bedside Lactic Acid Venous 1.01 0.90-1.70 mmol/L Bedside Prothrombin Time INR 1.1 0.9-1.1 Test 09/20/17 11:53 09/20/17 12:17 Range/Units Prothrombin Time 11.2 9.0-12.0 SECONDS Prothromb Time International Ratio 1.1 0.9-1.1 Activated Partial Thromboplast Time 30.8 21.0-31.0 SECONDS Partial Thromboplastin Ratio 1.2 Venous Blood pH 7.36 7.36-7.41 Venous Blood Partial Pressure CO2 51 38.0-50.0 mmHg Venous Blood Partial Pressure O2 33 mmHg Venous Blood HCO3 28 mmol/L Venous Blood Oxygen Saturation < 60.0 % Venous Blood Base Excess 1.9 mEq/L Lactic Acid Level 1.3 0.4-2.0 mmol/L Ammonia < 10.0 11-32 umol/L Urine Color YELLOW Urine Appearance CLEAR CLEAR Urine pH 5.0 4.5-7.5 Urine Specific [place] 1.015 1.000-1.030 Urine Protein NEG NEG Urine Glucose (UA) NEG NEG Urine Ketones NEG NEG Urine Occult Blood NEG NEG Urine Nitrite NEG NEG Urine Bilirubin NEG NEG Urine Urobilinogen NEG NEG Urine Leukocyte Esterase TRACE NEG Urine WBC (Auto) 0 0-5 /hpf Urine RBC (Auto) 0-4 0-4 /hpf Urine Hyaline Casts (Auto) 1-5 0-5 /lpf Urine Epithelial Cells (Auto) 5-10 0-5 /lpf Urine Bacteria (Auto) NEG NEG Microbiology Results 09/20/17 MRSA DNA Surveillance Screen, Received Pending 09/20/17 Urine Culture, Received Pending Diagnostic Radiology HEAD ANGIO WITH CONTRAST HISTORY: 71 years-old Female presents with acute strokelike symptoms with history of lymphoma COMPARISON: CT head of same day at 11:20 AM TECHNIQUE: CTA of the head was obtained following the intravenous administration of 94 mL Optiray 320. 3-D coronal and sagittal MIPS were obtained from the axial data set and submitted for review. All measurements were obtained according to NASCET criteria. A dose lowering technique was used consistent with the principals of ALARA. FINDINGS: There is moderate to extensive atherosclerotic plaquing noted involving the bilateral cavernous and clinoid portions of the internal carotid arteries. These findings appear to cause approximately 50% luminal narrowing. The bilateral middle and anterior cerebral arteries are patent without high-grade stenosis, aneurysm or proximal branch occlusion. Anterior communicating artery is unremarkable. The right vertebral artery is dominant. Atherosclerotic plaquing is noted involving the V3 and V4 portions of the right vertebral artery without high-grade narrowing. The basilar and bilateral posterior cerebral arteries are patent. The major venous sinuses are patent and within normal limits. Endotracheal and enteric tubes are seen within the oral cavity. No pathologic adenopathy identified. No acute intracranial abnormality identified. No skull fracture. Mucosal secretions are seen within the nasopharynx. IMPRESSION: 1. Moderate to extensive atherosclerotic plaquing involves the bilateral cavernous and clinoid portions of the internal carotid arteries causing approximately 50% luminal narrowing. 2. No high-grade stenosis, aneurysm, dissection or proximal branch occlusion identified. HEAD WITHOUT CONTRAST (CT) CLINICAL HISTORY: 71 years-old Female with Stroke. Acute strokelike symptoms . History of lymphoma TECHNIQUE: Multiple axial CT images of the head were obtained without contrast. A dose lowering technique was utilized adhering to the principles of ALARA. CT DOSE: 614.27 mGy.cm COMPARISON: PET CT 09/09/2017. FINDINGS: No acute intracranial hemorrhage, midline shift, intracranial mass, hydrocephalus, territorial ischemia or abnormal extra-axial collection. Mild brain atrophy. The calvarium is intact. The mastoid air cells, and middle ear cavities are clear. Mucosal secretions are noted within the nasal turbinates and nasopharynx. Mild to moderate mucosal thickening of the ethmoid air cells. Remaining paranasal sinuses are clear. There is hypoplasia of the left frontal sinus. Soft tissues are unremarkable. Prior bilateral cataract repair. IMPRESSION: No acute intracranial abnormality. EKG Sinus rhythm with occasional Premature ventricular complexes Impression Assessment and Plan This is a 71 year old female with a PMH of DM2, CKD stage 3, COPD on nocturnal O2, diastolic CHF, CAD, GERD, anxiety; recently admitted to [facility] due to an intra -abdominal mass/lymphoma - presents after being found unresponsive. Unresponsive State Encephalopathy unsure of the cause patient has a hx. 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 Y/N: Yes Risk Level: Moderate
[2017-09-20] MEDS ORDERED: NURSING VERBAL MED ORDER ONE (16:00)
--- NOTE | 2017-09-20 16:39 | DIAGNOSTIC IMAGING REPORT ---
BRAIN W/O FOR SEIZURE HISTORY: 71 years-old Female COMA patient was found unresponsive. History of lymphoma. COMPARISON: CTA 09/20/2017 TECHNIQUE: Multiplanar multisequence MRI the brain was obtained without contrast utilizing institutional seizure protocol FINDINGS: There is no restricted diffusion to suggest acute infarction. The midline structures including the corpus callosum, brainstem, optic chiasm, pituitary gland, infundibulum and pineal glands are unremarkable on the sagittal T1 series which is mildly motion degraded. Degenerative changes involve the imaged upper cervical spine. No acute intracranial hemorrhage, midline shift, abnormal extra-axial collections. No pathologic blooming artifact identified. Mild atrophy with scattered foci of subcortical and periventricular T-2/FLAIR prolongation suggesting mild chronic microvascular ischemic changes. Bilateral mesial temporal lobes appear unremarkable. No seizure focus identified. No cortical dysplasia identified. Major flow voids at the level of the skull base appear patent. Prior bilateral cataract repair. Trace mastoid effusion is noted on the right. Mild to moderate mucosal thickening of the ethmoid air cells. Scalp, calvarium and soft tissues are unremarkable. IMPRESSION: No acute intracranial abnormality identified. No acute infarction or focal mass identified. The above report was generated using voice recognition software. It may contain grammatical, syntax or spelling errors. Electronically signed by: Miguelito Levy M.D. 09/20/2017 4:38 PM Dictated Date/Time: 09/20/2017 4:16 PM
[2017-09-20] MEDS: NORMOSOL R 1,000 ML IV SCH (16:54)
[2017-09-20] MEDS: INSULIN ASPART 100 UNITS/ML 3 ML PEN SC SCH (18:00)
[2017-09-20] MEDS: INSULIN GLARGINE SOLOSTAR 100 UNITS/ML 3 ML PEN SC SCH (18:16)
[2017-09-20] MEDS: CARVEDILOL 3.125 MG TAB PO SCH (18:17)
[2017-09-20] MEDS: HEPARIN SOD 5000 UNIT/0.5 ML CARP SQ SCH (21:57)
[2017-09-20 22:02] LABS: CKMB 0.8 ng/ml (0.5-3.6)
[2017-09-21] VITALS (27 sets, daily range): BP systolic 104–154; BP diastolic 25–41; PULSE 60–76; TEMP 36.8–38.5; O2SAT 97–100
[2017-09-21] MEDS: DEXTROSE 50% 50 ML SYR IV PRN ×2 (00:35→07:00)
[2017-09-21] MEDS: NORMOSOL R 1,000 ML IV SCH ×2 (02:07→19:48)
[2017-09-21] MEDS: HEPARIN SOD 5000 UNIT/0.5 ML CARP SQ SCH ×3 (05:13→23:37)
[2017-09-21] MEDS: INSULIN ASPART 100 UNITS/ML 3 ML PEN SC SCH ×6 (05:23→23:58)
[2017-09-21] MEDS: INSULIN GLARGINE SOLOSTAR 100 UNITS/ML 3 ML PEN SC SCH (05:25)
[2017-09-21 06:34] LABS: BASO % 0.4 %; BASO ABS # 0.03 K/uL (0-0.2); EOS % 0.4 %; EOS ABS # 0.03 K/uL (0-0.5); HEMATOCRIT 28.4 % (37-47); IG# 0.02 K/uL (0.00-0.02); LYMPH % 11.1 %; LYMPH ABS # 0.95 K/uL (1.2-3.4); MEAN CELL VOLUME 89.9 fL (80-100); MEAN CORPUSCULAR HEMOGLOBIN 28.5 pg (25-34); MEAN CORPUSCULAR HGB CONC 31.7 g/dl (32-36); MEAN PLATELET VOLUME 10.2 fL (7.4-10.4); MONO % 14.4 %; MONO ABS # 1.23 K/uL (0.11-0.59); NEUT % 73.5 %; NEUT ABS # 6.27 K/uL (1.4-6.5); PLATELET COUNT 192 K/uL (130-400); RED CELL DISTRIBUTION WIDTH CV 16.6 % (11.5-14.5); RED CELL DISTRIBUTION WIDTH SD 54.3 fL (36.4-46.3); WHITE BLOOD COUNT 8.53 K/uL (4.8-10.8)
[2017-09-21 06:46] LABS: CALCIUM 8.7 mg/dl (8.5-10.1); CREATININE 1.47 mg/dl (0.60-1.20); POTASSIUM 4.3 mmol/L (3.5-5.1)
[2017-09-21 06:57] LABS: CKMB 0.8 ng/ml (0.5-3.6); PHOSPHORUS 3.5 mg/dl (2.5-4.9)
--- NOTE | 2017-09-21 07:01 | DIAGNOSTIC IMAGING REPORT ---
CHEST ONE VIEW PORTABLE CLINICAL HISTORY: Respiratory failure COMPARISON STUDY: 09/20/2017 FINDINGS: The endotracheal tube is 16 mm above the vishal. There is a nasogastric tube which passes into the stomach. The cardiac and mediastinal contours remain stable. There is no focal pulmonary consolidation. There is no overt failure. There are no pleural effusions.[ IMPRESSION: Endotracheal tube 16 mm above the vishal. Nasogastric passes into the stomach. No evidence of lobar consolidation Electronically signed by: Rancho Eddy M.D. 09/21/2017 7:00 AM Dictated Date/Time: 09/21/2017 6:59 AM
[2017-09-21] MEDS: ACETAMINOPHEN IV 100 ML IV PRN ×2 (07:20→19:35)
--- NOTE | 2017-09-21 07:50 | ELECTROENCEPHALOGRAPH REPORT ---
CLINICAL DIAGNOSIS: Unresponsiveness of uncertain cause question nonconvulsive status epilepticus. ELECTROENCEPHALOGRAM DIAGNOSIS: Mildly to moderately diffusely abnormal EEG with absence of normal background rhythm and slightly excessive amounts of theta delta activity bifrontally. DESCRIPTION OF TRACING: This EEG was done in the ICU and the patient is intubated. There were initially some muscle movement artifacts and during photic stimulation these persisted but later the tracing became more interpretable and artifact free but unfortunately there was a fair amount of beta activity which requires use of high cut filter to eliminate partially. With this in mind and there appears to be a background rhythm of low voltage in the upper theta range at around 7-8 Hz and about 15 microvolts of maximum amplitude. This was maximum posterior head regions bilaterally symmetrical. Polymorphic higher amplitude is still relatively low. Overall amplitude theta activity is seen in the central and frontal regions at low frequencies and intermixed with moderate amplitude waveforms in the delta range. These did not demonstrate any lateralizing features. There is no associated potentially epileptogenic patterns. Photic stimulation was performed that produces a minimal driving response if any at all and certainly no photomyogenic or photoparoxysmal components are noted. INTERPRETATION: This EEG reveals mild to moderate nonspecific generalized, nonfocal abnormalities without potentially epileptogenic features and consistent with a nonspecific encephalopathy. Clinical correlation is required. Of importance is the fact there is no evidence for continuous ongoing epileptogenic activity in a pattern consistent with nonconvulsive status epilepticus.
[2017-09-21] MEDS: ROSUVASTATIN CALCIUM 20 MG TAB PO SCH (07:57)
[2017-09-21] MEDS: CARVEDILOL 3.125 MG TAB PO SCH ×2 (07:57→16:09)
[2017-09-21] MEDS: ASPIRIN 81 MG ECTAB PO SCH (07:58)
[2017-09-21] MEDS: CLOPIDOGREL BISULFATE 75 MG TAB PO SCH (07:58)
[2017-09-21] MEDS: PANTOprazole SOD 40 MG TAB PO SCH (07:58)
[2017-09-21] MEDS: D5W AND NSS 1,000 ML IV SCH ×2 (09:12→17:10)
[2017-09-21] MEDS: FENTANYL CITRATE INJ 50 MCG/1 ML 2 ML VIAL IV SCH ×8 (10:00→23:43)
--- NOTE | 2017-09-21 11:00 | Pharmacy Progress Note ---
Glycemic: Assessment & Plan Date of Service Sep 21, 2017. Assessment & Plan The patient is currently receiving 10 units of insulin per day. BSGs ranging 43 - 174 mg/dl over the past 24hrs. The patient presented with a BS of 67/72. It is unknown if the patient took insulin yesterday morning before becoming unresponsive. According to BS scale, the patient received only 10 units of lantus yesterday but cotniues to have lows throughout the night and this morning. Therefore, will place lantus on hold and fluids are changed to D5W/NSS @125ml/hr until two consecutive reading of >150. At that time a pending order is in to contact pharmacy to alter dextrose containing fluids and go from there. Discussed plan with the nurse. Plan: * Switch Novolog Correction per scale to q4h and match a pending order for alteration in fluids * Will enter new fluid order, but place on hold until BS > 150 X 2 * Continue stress of three CF in the event of hyperglycemia * Will place lantus on hold and reassess glycemic status tomorrow Pharmacy will continue to monitor patient daily and write orders per [facility] inpatient glycemic control protocol. Thanks. * Please note that the plan above was derived based on current level of insulin resistance and hospital stress. These recommendations are appropriate for inpatient admission only. Plan of care upon discharge will need to be reassessed to avoid potential outpatient hypo/hyperglycemia.
--- NOTE | 2017-09-21 11:32 | EEG Procedure Note ---
EEG Procedure Note Date of Service Sep 21, 2017. Start / End Times Start Time: 09/21/2017 10:10 AM End Time: 09/21/2017 at 11:06 AM Referring Physician BIBI Katz and Dr Dias History This is a 71-year-old female who presented with unresponsiveness. Continues video EEG for further evaluation of possible seizure etiology. Home Medication List Scheduled Allopurinol (Zyloprim), 300 MG PO DAILY Aspirin (Aspirin Ec), 81 MG PO DAILY Budesonide/Formoterol Fumarate (Symbicort 160/4.5 Inhaler ), 2 PUFFS INH BID Carvedilol (Coreg), 3.125 MG PO BIDM Cholecalciferol (Vitamin D), 2,000 UNITS PO DAILY Clopidogrel Bisulfate (Plavix), 75 MG PO DAILY Cyanocobalamin (Vitamin B-12), 1,000 MCG PO DAILY Docusate Sodium (Colace), 1 CAP PO BID Ferrous Sulfate (Kp Ferrous Sulfate), 325 MG PO BID Home O2 Therapy (Oxygen), 2 LITERS NA UD Insulin Aspart Protamine & Asp (Novolog Mix 70/30), 62 UNITS SC BIDM Isosorbide Mononitrate Ext Rel (Imdur Ext Rel), 30 MG PO BID Lisinopril (Prinivil), 5 MG PO DAILY Loratadine (Claritin), 10 MG PO DAILY Magnesium Oxide (Mag-Ox), 400 MG PO BID Polyethylene Glycol 3350 (Miralax), 17 GM PO DAILY Pregabalin (Lyrica), 50 MG PO BID Ranitidine Hcl (Zantac), 150 MG PO BID Rosuvastatin Calcium (Crestor), 40 MG PO DAILY Tiotropium Michael (Spiriva Handihaler), 1 CAP INH DAILY Scheduled PRN Albuterol Sulf (Proventil 0.083% 2.5MG/3ML), 2.5 MG INH Q4 PRN for Wheezing Alprazolam (Xanax), 0.5 MG PO BID PRN for Anxiety Lidocaine (Anorectal) (Lidocaine), 1 APPLN TP Q4 PRN for Moderate Pain Nitroglycerin (Nitrostat), 0.4 MG UT PRN PRN for Chest Pain Oxycodone/Acetaminophen 7.5MG/325MG (Oxycodone/Acetaminophen 7.5MG/325MG), 1 TAB PO Q6H PRN for Pain Inpatient Medication List Current Inpatient Medications Medications (Trade) Dose Ordered Sig/Wai Route Start Time Stop Time Status Last Admin Dose Admin Ioversol (Optiray 320) 125 ml UD PRN IV 09/20/17 12:45 09/24/17 12:44 Pantoprazole Sodium (Protonix Tab) 40 mg DAILY PO 09/21/17 09:00 10/21/17 08:59 09/21/17 07:58 40 MG Glucose (Glucose 40% Gel) 15-30 GRAMS 15 GRAMS... UD PRN PO 09/20/17 13:15 10/20/17 13:14 Glucose (Glucose Chew Tab) 4-8 Tablets 4 Tabl... UD PRN PO 09/20/17 13:15 10/20/17 13:14 Dextrose (Dextrose 50% 50ML Syringe) 25-50ML OF 50% DW IV FOR... UD PRN IV 09/20/17 13:15 10/20/17 13:14 09/21/17 07:00 50 ML Glucagon (Glucagon Inj) 1 mg UD PRN SQ 09/20/17 13:15 10/20/17 13:14 Heparin Sodium (Porcine) (Heparin Sq 5000 Unit/0.5ml) 5,000 unit Q8 SQ 09/20/17 22:00 10/20/17 21:59 09/21/17 05:13 5,000 UNIT Fentanyl Citrate (Fentanyl Inj) 100 mcg Q2H IV 09/20/17 16:00 10/04/17 15:59 Midazolam HCl (Versed Inj) 2 mg Q2H PRN IV 09/20/17 14:30 10/20/17 14:29 Aspirin (Ecotrin Tab) 81 mg DAILY PO 09/21/17 09:00 10/21/17 08:59 09/21/17 07:58 81 MG Carvedilol (Coreg Tab) 3.125 mg BIDM PO 09/20/17 18:00 10/20/17 17:59 09/21/17 07:57 3.125 MG Clopidogrel Bisulfate (plAVix TAB) 75 mg DAILY PO 09/21/17 09:00 10/21/17 08:59 09/21/17 07:58 75 MG Rosuvastatin Calcium (Crestor Tab) 40 mg DAILY PO 09/21/17 09:00 10/21/17 08:59 09/21/17 07:57 40 MG Miscellaneous Information (Consult Glycemic Management Pharmacy) 1 ea UD PRN N/A 09/20/17 14:44 10/20/17 14:43 Insulin Glargine (Lantus Solostar Pen) Q12H SC 09/20/17 18:00 10/20/17 17:59 Future Hold 09/20/17 18:16 10 UNITS Insulin Aspart (novoLOG ASPART) SLIDING SCALE Q6 SC 09/20/17 18:00 10/20/17 17:59 Acetaminophen 100 ml @ 400 mls/hr Q8H PRN IV 09/20/17 21:15 10/20/17 21:14 09/21/17 07:20 400 MLS/HR Dextrose/Sodium Chloride 1,000 ml @ 125 mls/hr Q8H IV 09/21/17 09:00 10/21/17 08:59 09/21/17 09:12 125 MLS/HR Miscellaneous Information (Pending Order) 1 ea Q6H N/A 09/21/17 12:00 10/21/17 11:59 Description This is a 21 electrode continuous video EEG with a single channel dedicated to limited EKG. The electrodes were placed in accordance with the International 10- 20 system. At the start of this recording the patient was in reported altered mental status. Background was poorly organized with no well formed anterior to posterior gradient. Background was composed of symmetric moderate amplitude predominantly 6-7 Hz theta frequencies with intermittent delta frequencies. During the first 10 minutes of the recording, there was frequent high amplitude independent sharp waves at C3, Cz/Fz, , Fp2, and F4 that then resolved. There was no state changes or sleep transients. Interpretation This is an abnormal continuous video EEG secondary to: 1) 10 minutes of frequent central and right frontal sharp waves 2) moderate background disorganization slowing. There was no electrographic seizures. Clinical Correlation This EEG indicates: 1) cortical irritability and likely decrease seizure threshold in the central and right frontal regions. 2) moderate encephalopathy of nonspecific etiology.
--- NOTE | 2017-09-21 13:29 | Progress Note ---
Medicine Progress Note Date & Time of Visit: Sep 21, 2017 at 13:09. Subjective Pt was seen and examined Lying in bed intubated on vent support Objective Last 8 Hrs Date Time Temp Pulse Resp B/P (MAP) Pulse Ox O2 Delivery O2 Flow Rate FiO2 09/21/17 12:00 98 Mechanical Ventilator 30 09/21/17 12:00 30 09/21/17 12:00 37.4 62 12 138/33 (68) 98 Mechanical Ventilator 30.0 09/21/17 11:33 30 09/21/17 10:00 60 12 104/31 (55) 97 Mechanical Ventilator 30.0 09/21/17 08:00 99 Mechanical Ventilator 30 09/21/17 08:00 38.5 67 12 109/37 (61) 100 Mechanical Ventilator 30.0 09/21/17 08:00 30 09/21/17 07:20 30 09/21/17 05:40 30 09/21/17 05:31 37.5 Physical Exam: General- Intubated on Vent support Head- atraumatic Eyes- Pupils are sluggishly reactive to light ENT- Intubated Neck- no JVD Lungs- Coarse BS Heart- regular rhythm Abdomen- normal bowel sounds, soft Neuro- intubated, unresponsive to painful stimuli Skin- warm & dry Laboratory Results: Last 24 Hours Test 09/20/17 18:03 09/20/17 21:21 09/21/17 00:29 09/21/17 00:31 Bedside Glucose 82 mg/dl 46 mg/dl 43 mg/dl Total Creatine Kinase 58 U/L Creatine Kinase MB 0.8 ng/ml Creatine Kinase MB Ratio 1.4 Troponin I 0.026 ng/ml Test 09/21/17 00:59 09/21/17 05:18 09/21/17 06:08 09/21/17 07:16 Bedside Glucose 174 mg/dl 70 mg/dl 108 mg/dl White Blood Count 8.53 K/uL Red Blood Count 3.16 M/uL Hemoglobin 9.0 g/dL Hematocrit 28.4 % Mean Corpuscular Volume 89.9 fL Mean Corpuscular Hemoglobin 28.5 pg Mean Corpuscular Hemoglobin Concent 31.7 g/dl Platelet Count 192 K/uL Mean Platelet Volume 10.2 fL Neutrophils (%) (Auto) 73.5 % Lymphocytes (%) (Auto) 11.1 % Monocytes (%) (Auto) 14.4 % Eosinophils (%) (Auto) 0.4 % Basophils (%) (Auto) 0.4 % Neutrophils # (Auto) 6.27 K/uL Lymphocytes # (Auto) 0.95 K/uL Monocytes # (Auto) 1.23 K/uL Eosinophils # (Auto) 0.03 K/uL Basophils # (Auto) 0.03 K/uL RDW Standard Deviation 54.3 fL RDW Coefficient of Variation 16.6 % Immature Granulocyte % (Auto) 0.2 % Immature Granulocyte # (Auto) 0.02 K/uL Venous Blood pH 7.38 Venous Blood Partial Pressure CO2 49 mmHg Venous Blood Partial Pressure O2 28 mmHg Venous Blood HCO3 28 mmol/L Venous Blood Oxygen Saturation < 60.0 % Venous Blood Base Excess 2.9 mEq/L Sodium Level 140 mmol/L Potassium Level 4.3 mmol/L Chloride Level 105 mmol/L Carbon Dioxide Level 29 mmol/L Anion Gap 6.0 mmol/L Blood Urea Nitrogen 25 mg/dl Creatinine 1.47 mg/dl Est Creatinine Clear Calc Drug Dose 37.2 ml/min Estimated GFR () 41.2 Estimated GFR (Non- 35.5 BUN/Creatinine Ratio 17.0 Random Glucose 59 mg/dl Calcium Level 8.7 mg/dl Phosphorus Level 3.5 mg/dl Magnesium Level 2.3 mg/dl Total Creatine Kinase 108 U/L Creatine Kinase MB 0.8 ng/ml Creatine Kinase MB Ratio 0.7 Troponin I 0.056 ng/ml Test 09/21/17 11:15 09/21/17 11:48 Bedside Glucose 138 mg/dl Troponin I 0.066 ng/ml Date/Time Source Procedure Growth Status 09/21/17 08:38 Blood Blood Culture Pending Received 09/21/17 08:25 Blood Blood Culture Pending Received Assessment & Plan Unresponsive State unknown etiology hx. of lymphoma On narcotic for pain CT head/MRI head are negative EEG suggests cortical irritability and likely decrease seizure threshold in the central and right frontal regions. Very Poor prognosis Continue remains unresponsive even with painful stimuli Continue monitor in the ICU ELEVATED TROPONIN Mild elevated troponin No significant ST changes on EKG COPD On vent support Continue inhalers and nebulizers as needed DM2 insulin sliding scale monitor BSGs glycemic control consult CAD continue current cardiac medications DVT ppx subq heparin CODE STATUS DNR Consultants: [employer] neuro Current Inpatient Medications: Current Inpatient Medications Medications (Trade) Dose Ordered Sig/Wai Route Start Time Stop Time Status Last Admin Dose Admin Ioversol (Optiray 320) 125 ml UD PRN IV 09/20/17 12:45 09/24/17 12:44 Pantoprazole Sodium (Protonix Tab) 40 mg DAILY PO 09/21/17 09:00 10/21/17 08:59 09/21/17 07:58 40 MG Glucose (Glucose 40% Gel) 15-30 GRAMS 15 GRAMS... UD PRN PO 09/20/17 13:15 10/20/17 13:14 Glucose (Glucose Chew Tab) 4-8 Tablets 4 Tabl... UD PRN PO 09/20/17 13:15 10/20/17 13:14 Dextrose (Dextrose 50% 50ML Syringe) 25-50ML OF 50% DW IV FOR... UD PRN IV 09/20/17 13:15 10/20/17 13:14 09/21/17 07:00 50 ML Glucagon (Glucagon Inj) 1 mg UD PRN SQ 09/20/17 13:15 10/20/17 13:14 Heparin Sodium (Porcine) (Heparin Sq 5000 Unit/0.5ml) 5,000 unit Q8 SQ 09/20/17 22:00 10/20/17 21:59 09/21/17 05:13 5,000 UNIT Fentanyl Citrate (Fentanyl Inj) 100 mcg Q2H IV 09/20/17 16:00 10/04/17 15:59 Midazolam HCl (Versed Inj) 2 mg Q2H PRN IV 09/20/17 14:30 10/20/17 14:29 Aspirin (Ecotrin Tab) 81 mg DAILY PO 09/21/17 09:00 10/21/17 08:59 09/21/17 07:58 81 MG Carvedilol (Coreg Tab) 3.125 mg BIDM PO 09/20/17 18:00 10/20/17 17:59 09/21/17 07:57 3.125 MG Clopidogrel Bisulfate (plAVix TAB) 75 mg DAILY PO 09/21/17 09:00 10/21/17 08:59 09/21/17 07:58 75 MG Rosuvastatin Calcium (Crestor Tab) 40 mg DAILY PO 09/21/17 09:00 10/21/17 08:59 09/21/17 07:57 40 MG Miscellaneous Information (Consult Glycemic Management Pharmacy) 1 ea UD PRN N/A 09/20/17 14:44 10/20/17 14:43 Insulin Glargine (Lantus Solostar Pen) Q12H SC 09/20/17 18:00 10/20/17 17:59 Future Hold 09/20/17 18:16 10 UNITS Insulin Aspart (novoLOG ASPART) SLIDING SCALE Q6 SC 09/20/17 18:00 10/20/17 17:59 Acetaminophen 100 ml @ 400 mls/hr Q8H PRN IV 09/20/17 21:15 10/20/17 21:14 09/21/17 07:20 400 MLS/HR Dextrose/Sodium Chloride 1,000 ml @ 125 mls/hr Q8H IV 09/21/17 09:00 10/21/17 08:59 09/21/17 09:12 125 MLS/HR Miscellaneous Information (Pending Order) 1 ea Q6H N/A 09/21/17 12:00 10/21/17 11:59
--- NOTE | 2017-09-21 16:47 | CONSULTATION REPORT ---
DATE OF CONSULTATION: 09/21/2017 FOR: Dr. Flores. HISTORY OF PRESENT ILLNESS: Nidia is a 71-year-old white right-handed woman regularly followed by Dr. Kota Davenport who has type 2 diabetes, stage III renal disease, COPD requiring nocturnal O2, diastolic heart failure, coronary artery disease, GERD, anxiety and the recently diagnosed intra-abdominal lymphoma. She became very depressed about the diagnosis, was a little withdrawn, but otherwise according to family members was in her usual state of health and when last seen on Thursday night by family members, she seemed to be at her baseline. She was found on the morning yesterday seated with her tongue out, unresponsive and was brought to the Emergency Room with extensor posturing. She was intubated to protect her airway and she underwent an acute MRI which showed no lesions, an EEG which to my interpretation was unremarkable, but was hampered by a lot of low voltage fast activity, probably produced by the benzodiazepine injections, given prior to intubation. She has had a subsequent continuous EEG monitoring which showed in the first 10 minutes some cortical irritability, but no overt seizure activity and for the remainder of the exam showed only a mild to moderate generalized nonlateralizing encephalopathy. Neurology has been called to establish the cause of her acute unresponsiveness with posturing, and I am seeing her today. PAST MEDICAL HISTORY: As noted above. PAST SURGICAL HISTORY: Surgically, she has had knee joint replacement and has had a biopsy of the abdominal mass revealing a lymphoma. FAMILY HISTORY: Positive for hypertension in her father and mother and is otherwise noncontributory. SOCIAL HISTORY: Reveals her to be a former smoker. She lives alone. She is retired. She is not a consumer of ethanol. ALLERGIES: SHE HAS ALLERGIES TO NIACIN. MEDICATIONS: Her medications at home include allopurinol, aspirin, Symbicort, Coreg, vitamin D, Plavix, vitamin B12, Colace, ferrous sulfate, home O2, insulin, Isordil, lisinopril, loratadine, magnesium oxide, polyethylene glycol, Lyrica, ranitidine, Crestor, and Spiriva. Apparently, she does have access to Xanax and also lidocaine and apparently some oxycodone and nitroglycerin. It is not clear whether some of her psychoactive analgesic medications have been ingested in appropriate numbers. Because of the acute nature of her presentation; however, it was felt unlikely that this was a toxic issue and toxic screen has not been done as it probably would have been positive for all these entities anyway. LABORATORY DATA: Laboratory studies have been pretty unremarkable. There have been no clear signs of infection. White count has been mildly up, there have been some issues with hypoglycemia that had been addressed, but overall she has been on no sedative hypnotic agents now since presentation and intubation and has made very little progress in terms of her unresponsiveness. REVIEW OF SYSTEMS: Could not be obtained and still cannot. PHYSICAL EXAMINATION: VITAL SIGNS: Last night when on presentation revealed the blood pressure 186/73, pulse 77, respirations were 12. GENERAL: She was intubated. HEENT: Her pupils were minimally reactive to light. LUNGS: Clear. HEART: Had a regular rate. ABDOMEN: Soft, nontender. EXTREMITIES: Free of edema. NEUROLOGIC: Today, neurologically, she is intubated but breathing over the ventilator. She has some roving eye movements. Doll eyes maneuvers revealed conjugate gaze initially and then it drifts back to midline. Her pupils appear to be equal, round and reactive to light. There is a trace corneal reflex bilaterally. I could not get any real facial grimacing to severe pressure in the angles of the jaws. Initially, I could get almost no motor movements but after repeated attempts, I did get withdrawal of the right arm to noxious stimuli and deviation of the eyes towards me and facial grimacing. I did not get a similar response on the right, I could not get a similar response with noxious stimulation of the lower extremities. She was areflexic throughout. Toes were neutral to downgoing. No clear Maria Guadalupe signs were seen. ASSESSMENT AND PLAN: At this point, the diagnosis remains unestablished. We still have not totally eliminated the toxic ingestion, although she has opiates and benzodiazepines on and it will bepositive in her urine screen anyway and I totally agree with the option of not looking at this any further, at least at this time. Many elements of the exam suggested a brainstem vascular event or perhaps one involving the midbrain, although the eye movements are unusual and that they appear largely normal or not disconjugate and were appropriate for the noxious stimulation today. It remians possible that she had a partial overdose then respiratory depression and a hypoxic event that is now going to clear and only time will tell An EEG does not show ongoing seizure activity and I think the continuous monitoring can be stopped and I really would not treat her with anticonvulsants. I have discussed the case with the ICU staff, we are going to watch her another 24 hours and consider doing another MRI, if she does not make any further clinical improvement at that time. 7% of MRIs done acutely may be negative, particularly in lesions involving the posterior circulation. I will check back with her tomorrow. LUKE
--- NOTE | 2017-09-21 17:15 | EEG Procedure Note ---
EEG Procedure Note Date of Service Sep 21, 2017. Start / End Times Start Time: 09/21/2017 at 11:06 AM End Time: 09/21/2017 at 16:03 PM Referring Physician BIBI Katz and Dr Dias History This is a 71-year-old female who presented with unresponsiveness. Continues video EEG for further evaluation of possible seizure etiology. Home Medication List Scheduled Allopurinol (Zyloprim), 300 MG PO DAILY Aspirin (Aspirin Ec), 81 MG PO DAILY Budesonide/Formoterol Fumarate (Symbicort 160/4.5 Inhaler ), 2 PUFFS INH BID Carvedilol (Coreg), 3.125 MG PO BIDM Cholecalciferol (Vitamin D), 2,000 UNITS PO DAILY Clopidogrel Bisulfate (Plavix), 75 MG PO DAILY Cyanocobalamin (Vitamin B-12), 1,000 MCG PO DAILY Docusate Sodium (Colace), 1 CAP PO BID Ferrous Sulfate (Kp Ferrous Sulfate), 325 MG PO BID Home O2 Therapy (Oxygen), 2 LITERS NA UD Insulin Aspart Protamine & Asp (Novolog Mix 70/30), 62 UNITS SC BIDM Isosorbide Mononitrate Ext Rel (Imdur Ext Rel), 30 MG PO BID Lisinopril (Prinivil), 5 MG PO DAILY Loratadine (Claritin), 10 MG PO DAILY Magnesium Oxide (Mag-Ox), 400 MG PO BID Polyethylene Glycol 3350 (Miralax), 17 GM PO DAILY Pregabalin (Lyrica), 50 MG PO BID Ranitidine Hcl (Zantac), 150 MG PO BID Rosuvastatin Calcium (Crestor), 40 MG PO DAILY Tiotropium [place] (Spiriva Handihaler), 1 CAP INH DAILY Scheduled PRN Albuterol Sulf (Proventil 0.083% 2.5MG/3ML), 2.5 MG INH Q4 PRN for Wheezing Alprazolam (Xanax), 0.5 MG PO BID PRN for Anxiety Lidocaine (Anorectal) (Lidocaine), 1 APPLN TP Q4 PRN for Moderate Pain Nitroglycerin (Nitrostat), 0.4 MG UT PRN PRN for Chest Pain Oxycodone/Acetaminophen 7.5MG/325MG (Oxycodone/Acetaminophen 7.5MG/325MG), 1 TAB PO Q6H PRN for Pain Inpatient Medication List Current Inpatient Medications Medications (Trade) Dose Ordered Sig/Wai Route Start Time Stop Time Status Last Admin Dose Admin Ioversol (Optiray 320) 125 ml UD PRN IV 09/20/17 12:45 09/24/17 12:44 Pantoprazole Sodium (Protonix Tab) 40 mg DAILY PO 09/21/17 09:00 10/21/17 08:59 09/21/17 07:58 40 MG Glucose (Glucose 40% Gel) 15-30 GRAMS 15 GRAMS... UD PRN PO 09/20/17 13:15 10/20/17 13:14 Glucose (Glucose Chew Tab) 4-8 Tablets 4 Tabl... UD PRN PO 09/20/17 13:15 10/20/17 13:14 Dextrose (Dextrose 50% 50ML Syringe) 25-50ML OF 50% DW IV FOR... UD PRN IV 09/20/17 13:15 10/20/17 13:14 09/21/17 07:00 50 ML Glucagon (Glucagon Inj) 1 mg UD PRN SQ 09/20/17 13:15 10/20/17 13:14 Heparin Sodium (Porcine) (Heparin Sq 5000 Unit/0.5ml) 5,000 unit Q8 SQ 09/20/17 22:00 10/20/17 21:59 09/21/17 13:30 5,000 UNIT Fentanyl Citrate (Fentanyl Inj) 100 mcg Q2H IV 09/20/17 16:00 10/04/17 15:59 Midazolam HCl (Versed Inj) 2 mg Q2H PRN IV 09/20/17 14:30 10/20/17 14:29 Aspirin (Ecotrin Tab) 81 mg DAILY PO 09/21/17 09:00 10/21/17 08:59 09/21/17 07:58 81 MG Carvedilol (Coreg Tab) 3.125 mg BIDM PO 09/20/17 18:00 10/20/17 17:59 09/21/17 16:09 3.125 MG Clopidogrel Bisulfate (plAVix TAB) 75 mg DAILY PO 09/21/17 09:00 10/21/17 08:59 09/21/17 07:58 75 MG Rosuvastatin Calcium (Crestor Tab) 40 mg DAILY PO 09/21/17 09:00 10/21/17 08:59 09/21/17 07:57 40 MG Miscellaneous Information (Consult Glycemic Management Pharmacy) 1 ea UD PRN N/A 09/20/17 14:44 10/20/17 14:43 Insulin Glargine (Lantus Solostar Pen) Q12H SC 09/20/17 18:00 10/20/17 17:59 Future Hold 09/20/17 18:16 10 UNITS Acetaminophen 100 ml @ 400 mls/hr Q8H PRN IV 09/20/17 21:15 10/20/17 21:14 09/21/17 07:20 400 MLS/HR Dextrose/Sodium Chloride 1,000 ml @ 125 mls/hr Q8H IV 09/21/17 09:00 10/21/17 08:59 09/21/17 09:12 125 MLS/HR Insulin Aspart (novoLOG ASPART) SLIDING SCALE Q4 SC 09/21/17 16:00 10/21/17 15:59 09/21/17 16:11 4 UNITS Miscellaneous Information (Pending Order) 1 ea Q4H N/A 09/21/17 16:00 10/21/17 15:59 Parenteral Electrolyte Solution 1,000 ml @ 125 mls/hr Q8H IV 09/21/17 15:00 10/21/17 14:59 Future Hold Description This is a 21 electrode continuous video EEG with a single channel dedicated to limited EKG. The electrodes were placed in accordance with the International 10- 20 system. At the start of this recording the patient was in reported altered mental status. Background was poorly organized with no well formed anterior to posterior gradient. Background was composed of symmetric moderate amplitude predominantly 6-7 Hz theta frequencies with intermittent delta frequencies but often had a bifrontal predominance. There was no state changes or sleep transients. After 12 PM there was occasional 1-2 seconds of general background attenuation of frequencies often after a central or frontal sharp wave. There was no clinical correlation on video. There was rare central and right frontal sharp waves. Between 12 PM and 12:40 PM there was noted to be frequent high amplitude F4/F3 and C3 independent sharp waves. Interpretation This is an abnormal continuous video EEG secondary to: 1) rare to frequent central and right frontal greater than left frontal sharp waves 2) moderate background disorganization and slowing. There was no electrographic seizures. Clinical Correlation This EEG indicates: 1) cortical irritability and likely decrease seizure threshold in the central and right > left frontal regions. 2) moderate encephalopathy of nonspecific etiology.
--- NOTE | 2017-09-21 18:10 | Critical Care Progress Note ---
Critical Care Progress Note Date of Service Sep 21, 2017. Attending Dr. Mistry Subjective ROS is not obtainable, the pt is vented and comatose. Objective VSS, S1S2, RRR, lungs with rhonchi, abdomen is benign. CCE. neuro she has a left lateral gaze but pupils are equally reactive to light. cough reflex, no MS response even to pain. Current SOFA Score SOFA Score Response (Comments) Value PaO2/FiO2 (mmHg) < 400 1 SaO2 / FIO2 221 - 301 1 Platelets (x10) > 150 0 Bilirubin (mg/dL) < 1.2 0 Ellie Coma Score 6 - 9 3 Level of Hypotension No Hypotension 0 Creatinine (mg/dL) < 1.2 0 Total 5 Assessment & Plan A?P: 1- acute resp failure, due to unresponsiveness. 2- coma, unclear etiology, EEG did not reveal SE. 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 3- COPD, noc home O2. 4- hx of diabetes, was with hypoglycemia and now resolved. 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 6- hx of DHF. plan: 1- continue SBT once the pt MS improved. 2- MRI of the brain in am., r/o brain stem CVA. 3- glucose control. 4- add BD. 5- given her severe COPD , I may add systemic steroids given she is intubated. 6- DVT and GI prophylaxis. 7- no skin issues. 8- discussed with the family, they do not seem to be agreeable to trach if required. discussed with the staff on rounds in details. CCM 45 min. Consults & Procedures Consultants: neurology Procedures: none Data Medications: Current Inpatient Medications Medications (Trade) Dose Ordered Sig/Wai Route Start Time Stop Time Status Last Admin Dose Admin Ioversol (Optiray 320) 125 ml UD PRN IV 09/20/17 12:45 09/24/17 12:44 Pantoprazole Sodium (Protonix Tab) 40 mg DAILY PO 09/21/17 09:00 10/21/17 08:59 09/21/17 07:58 40 MG Glucose (Glucose 40% Gel) 15-30 GRAMS 15 GRAMS... UD PRN PO 09/20/17 13:15 10/20/17 13:14 Glucose (Glucose Chew Tab) 4-8 Tablets 4 Tabl... UD PRN PO 09/20/17 13:15 10/20/17 13:14 Dextrose (Dextrose 50% 50ML Syringe) 25-50ML OF 50% DW IV FOR... UD PRN IV 09/20/17 13:15 10/20/17 13:14 09/21/17 07:00 50 ML Glucagon (Glucagon Inj) 1 mg UD PRN SQ 09/20/17 13:15 10/20/17 13:14 Heparin Sodium (Porcine) (Heparin Sq 5000 Unit/0.5ml) 5,000 unit Q8 SQ 09/20/17 22:00 10/20/17 21:59 09/21/17 13:30 5,000 UNIT Fentanyl Citrate (Fentanyl Inj) 100 mcg Q2H IV 09/20/17 16:00 10/04/17 15:59 Midazolam HCl (Versed Inj) 2 mg Q2H PRN IV 09/20/17 14:30 10/20/17 14:29 Aspirin (Ecotrin Tab) 81 mg DAILY PO 09/21/17 09:00 10/21/17 08:59 09/21/17 07:58 81 MG Carvedilol (Coreg Tab) 3.125 mg BIDM PO 09/20/17 18:00 10/20/17 17:59 09/21/17 16:09 3.125 MG Clopidogrel Bisulfate (plAVix TAB) 75 mg DAILY PO 09/21/17 09:00 10/21/17 08:59 09/21/17 07:58 75 MG Rosuvastatin Calcium (Crestor Tab) 40 mg DAILY PO 09/21/17 09:00 10/21/17 08:59 09/21/17 07:57 40 MG Miscellaneous Information (Consult Glycemic Management Pharmacy) 1 ea UD PRN N/A 09/20/17 14:44 10/20/17 14:43 Insulin Glargine (Lantus Solostar Pen) Q12H SC 09/20/17 18:00 10/20/17 17:59 Future Hold 09/20/17 18:16 10 UNITS Acetaminophen 100 ml @ 400 mls/hr Q8H PRN IV 09/20/17 21:15 10/20/17 21:14 09/21/17 07:20 400 MLS/HR Dextrose/Sodium Chloride 1,000 ml @ 125 mls/hr Q8H IV 09/21/17 09:00 10/21/17 08:59 09/21/17 17:10 125 MLS/HR Insulin Aspart (novoLOG ASPART) SLIDING SCALE Q4 SC 09/21/17 16:00 10/21/17 15:59 09/21/17 16:11 4 UNITS Miscellaneous Information (Pending Order) 1 ea Q4H N/A 09/21/17 16:00 10/21/17 15:59 Parenteral Electrolyte Solution 1,000 ml @ 125 mls/hr Q8H IV 09/21/17 15:00 10/21/17 14:59 Future Hold I & O: 24-Hour Column 09/22/17 08:00 Intake Total 1030 ml Output Total 250 ml Balance 780 ml Vital Signs: Date Time Temp Pulse Resp B/P (MAP) Pulse Ox O2 Delivery O2 Flow Rate FiO2 09/21/17 16:00 30 09/21/17 16:00 37.6 74 12 154/29 (70) 100 Mechanical Ventilator 3.0 09/21/17 16:00 99 Mechanical Ventilator 30 09/21/17 14:30 30 09/21/17 14:00 70 13 125/36 (65) 99 Mechanical Ventilator 3.0 09/21/17 12:00 98 Mechanical Ventilator 30 09/21/17 12:00 30 09/21/17 12:00 37.4 62 12 138/33 (68) 98 Mechanical Ventilator 30.0 09/21/17 11:33 30 09/21/17 10:00 60 12 104/31 (55) 97 Mechanical Ventilator 30.0 09/21/17 08:00 Mechanical Ventilator 09/21/17 08:00 99 Mechanical Ventilator 30 09/21/17 08:00 38.5 67 12 109/37 (61) 100 Mechanical Ventilator 30.0 09/21/17 08:00 30 09/21/17 07:20 30 09/21/17 05:40 30 09/21/17 05:31 37.5 09/21/17 04:07 100 Mechanical Ventilator 30 09/21/17 04:07 30 09/21/17 04:01 71 12 130/39 (69) 100 09/21/17 04:00 67 12 100 09/21/17 03:01 68 12 140/39 (72) 100 09/21/17 03:00 66 12 100 12/11/17 02:01 65 12 115/38 (63) 100 09/21/17 02:00 30 09/21/17 02:00 66 12 100 09/21/17 01:01 62 12 118/33 (61) 100 09/21/17 01:00 61 12 100 09/21/17 00:01 75 12 122/41 (68) 98 09/21/17 00:00 36.8 75 12 98 09/21/17 00:00 100 Mechanical Ventilator 30 09/21/17 00:00 30 09/20/17 23:01 72 12 107/40 (62) 99 09/20/17 23:00 72 12 98 09/20/17 22:59 30 09/20/17 22:01 74 12 96/40 (58) 99 09/20/17 22:00 72 12 99 09/20/17 21:01 74 12 120/46 (70) 100 09/20/17 21:00 74 12 100 09/20/17 20:03 30 09/20/17 20:01 74 13 119/47 (71) 100 09/20/17 20:00 100 Mechanical Ventilator 30 09/20/17 20:00 30 09/20/17 20:00 38.8 74 13 99 09/20/17 19:01 74 13 129/45 (73) 100 09/20/17 19:00 75 12 100 09/20/17 18:17 74 12 138/57 (84) 100 Mechanical Ventilator 30 Laboratory Results: Last 24 Hours Test 09/20/17 21:21 09/21/17 00:31 09/21/17 00:59 09/21/17 05:18 Total Creatine Kinase 58 U/L Creatine Kinase MB 0.8 ng/ml Creatine Kinase MB Ratio 1.4 Troponin I 0.026 ng/ml Bedside Glucose 43 mg/dl 174 mg/dl 70 mg/dl Test 09/21/17 06:08 09/21/17 07:16 09/21/17 11:15 09/21/17 11:48 White Blood Count 8.53 K/uL Red Blood Count 3.16 M/uL Hemoglobin 9.0 g/dL Hematocrit 28.4 % Mean Corpuscular Volume 89.9 fL Mean Corpuscular Hemoglobin 28.5 pg Mean Corpuscular Hemoglobin Concent 31.7 g/dl Platelet Count 192 K/uL Mean Platelet Volume 10.2 fL Neutrophils (%) (Auto) 73.5 % Lymphocytes (%) (Auto) 11.1 % Monocytes (%) (Auto) 14.4 % Eosinophils (%) (Auto) 0.4 % Basophils (%) (Auto) 0.4 % Neutrophils # (Auto) 6.27 K/uL Lymphocytes # (Auto) 0.95 K/uL Monocytes # (Auto) 1.23 K/uL Eosinophils # (Auto) 0.03 K/uL Basophils # (Auto) 0.03 K/uL RDW Standard Deviation 54.3 fL RDW Coefficient of Variation 16.6 % Immature Granulocyte % (Auto) 0.2 % Immature Granulocyte # (Auto) 0.02 K/uL Venous Blood pH 7.38 Venous Blood Partial Pressure CO2 49 mmHg Venous Blood Partial Pressure O2 28 mmHg Venous Blood HCO3 28 mmol/L Venous Blood Oxygen Saturation < 60.0 % Venous Blood Base Excess 2.9 mEq/L Sodium Level 140 mmol/L Potassium Level 4.3 mmol/L Chloride Level 105 mmol/L Carbon Dioxide Level 29 mmol/L Anion Gap 6.0 mmol/L Blood Urea Nitrogen 25 mg/dl Creatinine 1.47 mg/dl Est Creatinine Clear Calc Drug Dose 37.2 ml/min Estimated GFR () 41.2 Estimated GFR (Non- 35.5 BUN/Creatinine Ratio 17.0 Random Glucose 59 mg/dl Calcium Level 8.7 mg/dl Phosphorus Level 3.5 mg/dl Magnesium Level 2.3 mg/dl Total Creatine Kinase 108 U/L Creatine Kinase MB 0.8 ng/ml Creatine Kinase MB Ratio 0.7 Troponin I 0.056 ng/ml 0.066 ng/ml Bedside Glucose 108 mg/dl 138 mg/dl
[2017-09-22] VITALS (23 sets, daily range): BP systolic 106–164; BP diastolic 28–44; PULSE 69–85; TEMP 36.9–38.2; O2SAT 91–99
[2017-09-22] MEDS ORDERED: INSULIN PROTOCOL GOAL RANGE ONE (01:30)
[2017-09-22] MEDS ORDERED: MODERATE STRESS LEVEL ONE (01:30)
[2017-09-22] MEDS ORDERED: INSULIN IV INFUSION PROTOCOL SCH (01:43)
[2017-09-22] MEDS: FENTANYL CITRATE INJ 50 MCG/1 ML 2 ML VIAL IV SCH ×11 (02:00→22:00)
[2017-09-22 02:02] LABS: BASO % 0.4 %; BASO ABS # 0.04 K/uL (0-0.2); EOS % 0.6 %; EOS ABS # 0.06 K/uL (0-0.5); HEMATOCRIT 27.8 % (37-47); HEMOGLOBIN 8.7 g/dL (12.0-16.0); IG# 0.03 K/uL (0.00-0.02); LYMPH % 10.9 %; LYMPH ABS # 1.17 K/uL (1.2-3.4); MEAN CELL VOLUME 90.3 fL (80-100); MEAN CORPUSCULAR HEMOGLOBIN 28.2 pg (25-34); MEAN CORPUSCULAR HGB CONC 31.3 g/dl (32-36); MEAN PLATELET VOLUME 9.7 fL (7.4-10.4); MONO % 10.1 %; MONO ABS # 1.09 K/uL (0.11-0.59); NEUT % 77.7 %; NEUT ABS # 8.38 K/uL (1.4-6.5); PLATELET COUNT 175 K/uL (130-400); RED CELL DISTRIBUTION WIDTH CV 16.2 % (11.5-14.5); RED CELL DISTRIBUTION WIDTH SD 53.9 fL (36.4-46.3); WHITE BLOOD COUNT 10.77 K/uL (4.8-10.8)
[2017-09-22] MEDS ORDERED: NURSING VERBAL MED ORDER ONE (02:30)
[2017-09-22 02:38] LABS: CALCIUM 8.5 mg/dl (8.5-10.1); CREATININE 1.26 mg/dl (0.60-1.20); PHOSPHORUS 2.9 mg/dl (2.5-4.9); POTASSIUM 3.8 mmol/L (3.5-5.1)
[2017-09-22] MEDS: NORMOSOL R 1,000 ML IV SCH (03:43)
[2017-09-22] MEDS: INSULIN ASPART 100 UNITS/ML 3 ML PEN SC SCH ×5 (04:00→20:16)
[2017-09-22] MEDS: HEPARIN SOD 5000 UNIT/0.5 ML CARP SQ SCH ×2 (06:39→14:33)
[2017-09-22] MEDS ORDERED: INSULIN GLARGINE SOLOSTAR 100 UNITS/ML 3 ML PEN SC ONE (07:30)
[2017-09-22] MEDS: CARVEDILOL 3.125 MG TAB PO SCH ×2 (07:52→16:30)
[2017-09-22] MEDS: CLOPIDOGREL BISULFATE 75 MG TAB PO SCH (07:53)
[2017-09-22] MEDS: PANTOprazole SOD 40 MG TAB PO SCH (07:53)
[2017-09-22] MEDS: ASPIRIN 81 MG ECTAB PO SCH (07:53)
[2017-09-22] MEDS: ROSUVASTATIN CALCIUM 20 MG TAB PO SCH (07:54)
[2017-09-22] MEDS ORDERED: INSULIN ASPART 100 UNITS/ML 3 ML PEN SC SCH (08:00)
--- NOTE | 2017-09-22 08:43 | Progress Note ---
Internal Med Progress Note Date of Service: Sep 22, 2017. Provider Documentation: SUBJECTIVE: pt seen in ICU 108 remains unresponsive /comatose /intubated /not on any sedation or pain meds no response noted with verbal cue or tactile stimulus /sternal rub vitals remains stable, afebrile Diaz draining clear yellow urine OBJECTIVE: Vital Signs-as noted below Exam: General-elderly female , unresponsive on vent Eyes-pupils mid dilated on rt side . could not appreciate any pupillary response to light ENT-ET tube , NG tube present , tongue protruded Neck-no JVD noted Lungs-diminished breath sound , no wheeze or rales noted Heart-regular Abdomen-soft, + bowel sound Extremities-warm . BS + ve Neuro-unresponsive /no reflex could be elicited , remains comatose on not requiring any sedation /absence of pupillary response to light Lab data as noted below. ASSESSMENT & PLAN: UNRESPONSIVENESS /ACUTE CHANGE IN MENTAL STATUS /COMA: Definitive etiology remains unknown differentials : acute brain stem CVA /lymphangitic spread /brain mets of aggressive lymphoproliferative disease presented with unresponsive state family found her slumped over with tongue protruded possible acute CVA -was not a tPA candidate on presentation -unknown time of onset /wide spread metastatic malignancy CT of brain on admission 09/20/17 no acute change noted CTA of brain : 1. Moderate to extensive atherosclerotic plaquing involves the bilateral cavernous and clinoid portions of the internal carotid arteries causing approximately 50% luminal narrowing. 2. No high-grade stenosis, aneurysm, dissection or proximal branch occlusion identified. MRI of brain with out contrast : No acute intracranial abnormality identified. No acute infarction or focal mass identified. multiple EEG done to R/o Seizure -was negative finding no evidence of sepsis , no significant electrolyte imbalance that can contribute to mental status change appreciate input from Pediatric Dental Hygienist and Neurology pt is intubated for air way protection no movement of grimaces noted while remaining intubated with out any sedation or pain medications prognosis remains very poor possible brain stem acute spread MRI of brain with and with out contrast ordered pt is continued with Aspirin /Plavix /statin via NG tube CKD STAGE 3 cr approx baseline having adequate urine output HTN BP stable on Coreg 3.125 mg BID via NG tube TYPE 2 DM : poorly controlled recent Hb A1c being > 8 presented with hypoglycemic state later BSG's were elevated was briefly on IV Insulin GTT -D/joe on Sub q heparin /basal Lantus accucheck Q 6hrs as pt remains NPO appreciate pharmacy input for glycemic management RECENTLY DIAGNOSED LYMPHOMA WITH WIDE SPREAD METASTASIS : Incidental finding of wide spread abdominal and retroperitoneal Lymphadenopathy in CT abdomen/pelvis on 08/27/17 as pt was admitted for intractable abdominal pain CT guided retroperitoneal LN biopsy on 08/27/17 Pathology shows : 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 PET scan on 09/09/17 : -Multiple FDG avid LN seen within the neck , chest , abdomen and pelvis , most pronounced within the retroperitoneal space , the majority of these have increased in size since imaging on 08/27/17 and are consistent with history of lymphoma -asymmetric soft tissue fullness with abnormal FDG uptake with the left nasopharyngeal soft tissues , right palatine tonsil, and left lateral retropharyngeal space -consistent with sites of disease -FDG avid left pleural effusion consistent with a malignancy pleural effusion Pt was seen at Dr Anderson's office on 09/15/17 referral made for ENT for the soft tissue mass on nasopharyngeal area Plan was to get referral to surgery for Port placement for Chemo tx on recommendation for chemotherapy protocol for B-cell lymphoma per Dr Anderson was R-EPOCH (Rituxan, etoposide, prednisone, vincristine, Adriamycin, cyclophosphamide). or R-CHOP chemotherapy. Pt has not received any Chemo tx Pt presented with unresponsive state prior to Surgery follow up for A Port her overall prognosis remains extremely poor Dr Anderson updated FEBRILE EPISODE : had febrile episodes last evening blood cultures been sent no leukocytosis check Cxray to r/o development of infiltrate /pneumonia DNR/DNI DVT PROPHYLAXIS high risk due to metastatic malignancy /immobility unresponsive status sub q heparin DISPOSITION to be determine remains critically ill in ICU in Coma/respiratory failure D/w with Daughter Esther Christianson -updated , aware about the poor prognosis daughter mentions her mother opened her eyes when she was talking to her yesterday . yawned few times she is updated this AM -I did not see any purposeful movements daughter requests to be updated regarding any change or any image /lab finding that can give some light about her diagnosis and reason for decline Vital Signs: Date Time Temp Pulse Resp B/P (MAP) Pulse Ox O2 Delivery O2 Flow Rate FiO2 12/12/17 10:00 76 12 132/36 (68) 98 Mechanical Ventilator 30 09/22/17 08:00 30 09/22/17 08:00 Mechanical Ventilator 30 09/22/17 08:00 37.7 85 12 135/41 (72) 98 Mechanical Ventilator 30 09/22/17 07:15 30 09/22/17 05:00 30 09/22/17 04:01 37.4 74 13 160/35 (76) 98 09/22/17 04:00 30 09/22/17 04:00 72 16 98 09/22/17 04:00 99 Mechanical Ventilator 30 09/22/17 03:01 71 15 148/41 (76) 98 09/22/17 03:00 72 15 98 09/22/17 02:01 69 15 145/42 (76) 97 09/22/17 01:51 30 09/22/17 01:01 72 14 123/37 (65) 98 09/22/17 00:01 37.5 69 12 126/35 (65) 98 09/22/17 00:01 99 Mechanical Ventilator 30 09/22/17 00:01 30 09/21/17 23:21 30 09/21/17 23:01 68 12 116/33 (60) 98 09/21/17 23:00 67 12 98 09/21/17 22:01 69 12 112/34 (60) 99 09/21/17 22:00 68 13 99 09/21/17 21:01 75 12 110/36 (60) 98 09/21/17 21:00 76 12 98 09/21/17 20:31 76 12 108/34 (58) 98 09/21/17 20:14 30 09/21/17 20:01 37.9 63 12 115/25 (55) 99 09/21/17 20:00 99 Mechanical Ventilator 30 09/21/17 20:00 30 09/21/17 18:25 30 09/21/17 18:00 68 15 139/37 (71) 98 Mechanical Ventilator 3.0 09/21/17 16:00 30 09/21/17 16:00 37.6 74 12 154/29 (70) 100 Mechanical Ventilator 3.0 09/21/17 16:00 99 Mechanical Ventilator 30 09/21/17 14:30 30 09/21/17 14:00 70 13 125/36 (65) 99 Mechanical Ventilator 3.0 09/21/17 12:00 98 Mechanical Ventilator 30 09/21/17 12:00 30 09/21/17 12:00 37.4 62 12 138/33 (68) 98 Mechanical Ventilator 30.0 09/21/17 11:33 30 Lab Results: Results Past 24 Hours Test 09/21/17 11:15 09/21/17 11:48 09/21/17 16:03 09/21/17 19:40 Range/Units Bedside Glucose 138 244 229 70-90 mg/dl Troponin I 0.066 0-0.045 ng/ml Test 09/21/17 23:52 09/22/17 01:42 09/22/17 01:57 09/22/17 02:26 Range/Units Bedside Glucose 223 166 154 70-90 mg/dl White Blood Count 10.77 4.8-10.8 K/uL Red Blood Count 3.08 4.2-5.4 M/uL Hemoglobin 8.7 12.0-16.0 g/dL Hematocrit 27.8 37-47 % Mean Corpuscular Volume 90.3 80-100 fL Mean Corpuscular Hemoglobin 28.2 25-34 pg Mean Corpuscular Hemoglobin Concent 31.3 32-36 g/dl Platelet Count 175 130-400 K/uL Mean Platelet Volume 9.7 7.4-10.4 fL Neutrophils (%) (Auto) 77.7 % Lymphocytes (%) (Auto) 10.9 % Monocytes (%) (Auto) 10.1 % Eosinophils (%) (Auto) 0.6 % Basophils (%) (Auto) 0.4 % Neutrophils # (Auto) 8.38 1.4-6.5 K/uL Lymphocytes # (Auto) 1.17 1.2-3.4 K/uL Monocytes # (Auto) 1.09 0.11-0.59 K/uL Eosinophils # (Auto) 0.06 0-0.5 K/uL Basophils # (Auto) 0.04 0-0.2 K/uL RDW Standard Deviation 53.9 36.4-46.3 fL RDW Coefficient of Variation 16.2 11.5-14.5 % Immature Granulocyte % (Auto) 0.3 % Immature Granulocyte # (Auto) 0.03 0.00-0.02 K/uL Red Blood Cell Morphology Unremarkable Sodium Level 140 136-145 mmol/L Potassium Level 3.8 3.5-5.1 mmol/L Chloride Level 106 98-107 mmol/L Carbon Dioxide Level 28 21-32 mmol/L Anion Gap 5.0 3-11 mmol/L Blood Urea Nitrogen 24 7-18 mg/dl Creatinine 1.26 0.60-1.20 mg/dl Est Creatinine Clear Calc Drug Dose 43.4 ml/min Estimated GFR () 49.6 Estimated GFR (Non- 42.8 BUN/Creatinine Ratio 18.7 10-20 Random Glucose 157 70-99 mg/dl Calcium Level 8.5 8.5-10.1 mg/dl Phosphorus Level 2.9 2.5-4.9 mg/dl Magnesium Level 2.1 1.8-2.4 mg/dl Test 09/22/17 03:50 Range/Units Bedside Glucose 147 70-90 mg/dl
--- NOTE | 2017-09-22 09:27 | DIAGNOSTIC IMAGING REPORT ---
CHEST ONE VIEW PORTABLE CLINICAL HISTORY: Respiratory failure. Fever. COMPARISON STUDY: 09/21/2017 FINDINGS: The endotracheal tube is positioned within 1 cm of the vishal. The cardiac and mediastinal contours remain stable. There is mild prominence of the left basal interstitial markings. While likely atelectatic, a developing inflammatory/infectious process cannot be excluded. There are no cystic or pleural effusions. There is no overt failure.[ IMPRESSION: 1. Endotracheal tube within 1 cm of the vishal 2. Mild prominence of the left basilar interstitial markings. While likely atelectatic, a developing inflammatory/infectious process cannot be excluded Electronically signed by: Rancho Eddy M.D. 09/22/2017 9:26 AM Dictated Date/Time: 09/22/2017 9:24 AM
[2017-09-22] MEDS ORDERED: FLUMAZENIL 0.1 MG/1 ML 10 ML VIAL IV ONE ×2 (10:00→10:13)
[2017-09-22] MEDS: SODIUM CHLORIDE 0.9% 1000ML 1,000 ML IV SCH (10:20)
[2017-09-22] MEDS ORDERED: VANCOMYCIN INJ 1,000 MG in SODIUM CHLORIDE 0.9% 250ML 250 ML IV STA (10:45)
--- NOTE | 2017-09-22 10:50 | Progress Note ---
Progress Note Date of Service Sep 22, 2017. Progress Note ATTENDING NOTE: Cxray reviewed : Mild prominence of the left basilar interstitial markings. While likely atelectatic, a developing inflammatory/infectious process cannot be excluded pt been having intermittent fever Temp 37.7 at 8 am today blood culture ordered already Sputum culture for gram statin and culture ( profuse yellow sputum noted on suction ) D/w service superintendent High risk for vent related pneumonia started on Iv Zosyn and IV vancomycin -coverage for HCAP
[2017-09-22] MEDS ORDERED: PIPERACILL/TAZOBAC CONSULT ACTIVE PRN (11:30)
[2017-09-22] MEDS ORDERED: PIPERACILL/TAZOBAC IV 3.375 GM in DEXTROSE 5% 100ML IV ONE (11:30)
[2017-09-22] MEDS ORDERED: VANCOMYCIN CONSULT ACTIVE PRN (11:45)
--- NOTE | 2017-09-22 11:53 | Pharmacy Progress Note ---
Pharmacy Antibiotic Consult Date of Service: Sep 22, 2017. Pharmacy Dosing Scope Pharmacy is consulted to initiate Vancomycin/zosyn IV dosing therapy, order appropriate labs and adjust drug dose/frequency. Subjective The patient is a 71 year old female admitted on Sep 20, 2017 at 13:08. Objective Height (Feet): 5 Height (Inches): 5.00 Weight (Kilograms): 85.100 Lab Results (24hrs): Test 09/22/17 01:42 09/22/17 02:26 09/22/17 03:50 White Blood Count 10.77 K/uL (4.8-10.8) Red Blood Count 3.08 M/uL (4.2-5.4) Hemoglobin 8.7 g/dL (12.0-16.0) Hematocrit 27.8 % (37-47) Mean Corpuscular Volume 90.3 fL (80-100) Mean Corpuscular Hemoglobin 28.2 pg (25-34) Mean Corpuscular Hemoglobin Concent 31.3 g/dl (32-36) Platelet Count 175 K/uL (130-400) Mean Platelet Volume 9.7 fL (7.4-10.4) Neutrophils (%) (Auto) 77.7 % Lymphocytes (%) (Auto) 10.9 % Monocytes (%) (Auto) 10.1 % Eosinophils (%) (Auto) 0.6 % Basophils (%) (Auto) 0.4 % Neutrophils # (Auto) 8.38 K/uL (1.4-6.5) Lymphocytes # (Auto) 1.17 K/uL (1.2-3.4) Monocytes # (Auto) 1.09 K/uL (0.11-0.59) Eosinophils # (Auto) 0.06 K/uL (0-0.5) Basophils # (Auto) 0.04 K/uL (0-0.2) RDW Standard Deviation 53.9 fL (36.4-46.3) RDW Coefficient of Variation 16.2 % (11.5-14.5) Immature Granulocyte % (Auto) 0.3 % Immature Granulocyte # (Auto) 0.03 K/uL (0.00-0.02) Red Blood Cell Morphology Unremarkable Sodium Level 140 mmol/L (136-145) Potassium Level 3.8 mmol/L (3.5-5.1) Chloride Level 106 mmol/L (98-107) Carbon Dioxide Level 28 mmol/L (21-32) Anion Gap 5.0 mmol/L (3-11) Blood Urea Nitrogen 24 mg/dl (7-18) Creatinine 1.26 mg/dl (0.60-1.20) Est Creatinine Clear Calc Drug Dose 43.4 ml/min Estimated GFR () 49.6 Estimated GFR (Non- 42.8 BUN/Creatinine Ratio 18.7 (10-20) Random Glucose 157 mg/dl (70-99) Calcium Level 8.5 mg/dl (8.5-10.1) Phosphorus Level 2.9 mg/dl (2.5-4.9) Magnesium Level 2.1 mg/dl (1.8-2.4) Bedside Glucose 154 mg/dl (70-90) 147 mg/dl (70-90) Micro Results: See EMR Assessment & Plan MV patient now being covered empirically for HAP/VAP. Loading dose: 1750 mg IV X 1 dose then: 1250 mg IV every 24 hours. Goal trough level estimate: between 15 - 20 mcg/mL. Trough level has been ordered for: @1130. Pharmacy will continue to follow and will adjust dose/frequency as necessary. Thank you
[2017-09-22] MEDS ORDERED: PIPERACILL/TAZOBAC IV 3.375 GM in DEXTROSE 5% 100ML 100 ML IV SCH (12:00)
[2017-09-22] MEDS ORDERED: VANCOMYCIN INJ 1,750 MG in SODIUM CHLORIDE 0.9% 500ML 500 ML IV ONE (12:00)
--- NOTE | 2017-09-22 12:49 | DIAGNOSTIC IMAGING REPORT ---
MRI OF THE BRAIN WITHOUT AND WITH IV CONTRAST CLINICAL HISTORY: Lymphoma, unresponsive patient. Evaluate for stroke. COMPARISON STUDY: 09/20/2017 TECHNIQUE: MRI of the brain was performed from the vertex to the skull base utilizing various T1 and T2 weighted sequences. Following the IV administration of 8.5 mL of Gadavist contrast, additional enhanced images were obtained. FINDINGS: Sagittal T1, axial diffusion, proton density and T2 weighted axial, coronal FLAIR, and pre and post axial T1-weighted images were acquired. These were supplemented with post gadolinium coronal T1 weighted images. No intra or extra-axial mass lesions are visualized. There is restricted water diffusion, isolated to the cortex with primary involvement of the occipital lobes however there is also involvement of the temporal lobes parietal lobes and left frontal lobe. There is no evidence of ventricular dilatation. Proton density T2-weighted and FLAIR images reveal scattered foci of increased T2 signal within the white matter, likely on a small vessel basis. There are no abnormal flow voids. There are no enhancing masses to indicate metastatic disease. There is a tiny left cerebellar developmental venous anomaly. IMPRESSION: 1. Interval development of restricted water diffusion isolated to the cortex most pronounced occipitally. There is no corresponding pathologic enhancement, and there is no corresponding FLAIR signal abnormality. The etiology of this finding is not known. Diagnostic considerations include among others cortical laminar necrosis, a metabolic disorder such as hypoglycemia, PRESS, and prion disease. 2. No evidence of metastatic disease. Electronically signed by: Rancho Eddy M.D. 09/22/2017 12:47 PM Dictated Date/Time: 09/22/2017 12:29 PM
--- NOTE | 2017-09-22 14:29 | Pharmacy Progress Note ---
Glycemic: Assessment & Plan Date of Service Sep 22, 2017. Assessment & Plan The patient is currently receiving 10 units of insulin per day. BSGs ranging 59 - 244 mg/dl over the past 24hrs. Patient's BSG extremely labile. Will therefore continue every 4 hours BSG checks, alter goal range and create a lantus scale for tonight's dose to ensure the most safe and efficacious dose possible. * Basal insulin: Lantus 10 units this morning Lantus scale for tonight: -If BSG< 180, give 0 units -If BSG 180-219, give 8 units -If BSG 220 or greater, give 15 units * Correctional Insulin: Novolog Correction per scale q4h Goal Range: Low 120 mg/dL - High 160 mg/dL Correction Factor: 20 mg/dL/unit * Prandial insulin: Per carb ratio of 1 unit per 6 grams CHO consumed; patient NPO Pharmacy will continue to monitor patient daily and write orders per [facility] inpatient glycemic control protocol. Thanks. * Please note that the plan above was derived based on current level of insulin resistance and hospital stress. These recommendations are appropriate for inpatient admission only. Plan of care upon discharge will need to be reassessed to avoid potential outpatient hypo/hyperglycemia.
--- NOTE | 2017-09-22 15:34 | PROGRESS NOTE ---
DATE: 09/22/2017 SUBJECTIVE: Nidia has remained stuporous overnight as she is breathing and has some rudimentary movements primarily to noxious stimuli. With pinching of her left fingertip, she will withdraw, there is no posturing and she opens her eyes. She makes some movements of a similar type on the right, although less vigorously. I could not get her legs to withdraw today. There was some spontaneous eye opening and some roving eye movements. She still has a corneal reflex and I am not sure if she responds to visual threat. The MRI was done and shows diffuse uptake on diffusion-weighted imaging throughout the posterior portions of the hemispheres, likely due to a reperfusion injury, columnar necrosis and there are a number of mechanisms that could have caused this, among the, hypoglycemia, hypoxemia, hypotension, or mixture of all. There is again no acute stroke, only old white matter changes and there is no particular enhancement of the meninges. The differential diagnosis does include prion disease, although clinically. This woman was in her normal baseline state of health and then was found acutely on unresponsive state, which would be very unusual for prion disorder, which is usually a subacute to chronic illness. I do not think this is FILAMENT MAKER lymphoma, but she does have an intra-abdominal lymphoma and the ICU staff is going to go ahead with a lumbar puncture looking for cells, protein, glucose, cytology, possible infectious agents and the prion disease issue that has been mentioned with a 14/3/3 protein determinationon the csf we would see in association with Creutzfeldt-Yobany disease. I had a long talk with the family today as did the ICU staff who are all on the same page and the favored diagnosis is that of a post-hypotension and post-hypoxemic or even hypoglycemic diffuse encephalopathy. There is no evidence for ongoing clinical seizure activity. We will see what the CSF shows, but for now unfortunately we do not have a lot to offer therapeutically other than support and the family is going to have to reach a decision about how vigorous this would be in light of her extensive lymphoma and other burden of disease. I will check back with her tomorrow. LUKE
--- NOTE | 2017-09-22 16:45 | Procedure Note ---
Procedure Note Date of Service Sep 22, 2017. (Randal May MD) Procedure Note Procedure - Lumbar Puncture Indication - Encephalopathy Anesthesia - Local 1% lidocaine Informed consent was obtained from the patient's mother. The area was prepped and draped in the usual sterile fashion. Using landmarks, a 22 guage spinal needle was inserted in the L4-L5 innerspace. CSF was unable to be obtain from that innerspace. The 22 gauge needle was then inserted into the L3-L4 innerspace. 8cc of clear fluid was collected and sent for Cell Count and Diff, Protein, Culture and Gram Stain, Glucose, HSV, and Kiel Protein. The patient tolerated the procedure well. There was no blood loss or hematoma. (Ranadl May MD) i was present for the entire procedure with Dr. May, please defer to his full procedure note. (Ender Mistry MD) Resident Tracking Resident Involvement: Resident Care Provided Care Provided: Adult Hospital Medicine (Randal May MD)
[2017-09-22 16:57] LABS: CSF GLUCOSE 93 mg/dl (40-70); CSF TOTAL PROTEIN 75.8 mg/dl (15.0-45.0)
[2017-09-22] MEDS: PIPERACILL/TAZOBAC IV 3.375 GM in DEXTROSE 5% 100ML IV SCH (17:58)
--- NOTE | 2017-09-22 20:57 | Critical Care Progress Note ---
Critical Care Progress Note Date of Service Sep 22, 2017. Attending Dr. Fede Bills The patient did not show any signs of neurologic improvement. The patient barely open her eyes, she does not follow any commands, she does not move her 4 extremities. Involuntary movements were noted. Review of systems was not obtainable as the patient being intubated and in persistent vegetative state Objective VSS, S1S2, RRR, lungs with rhonchi, abdomen is benign. CCE. neuro she has a left lateral gaze but pupils are equally reactive to light. cough reflex, no MS response even to pain. On 09/22/2017 examination, the patient could not fully open her eyes, her pupils also reactive to light, she does have cough reflex, no stridor, heart examination S1-S2 regular rate and rhythm, abdomen is benign, lungs with distant breath sounds, no edema, Neurologically the patient does have upgoing Babinski toes, bilaterally, no response to tactile or verbal, remains comatose. No response to flumazenil at the bedside. Current SOFA Score SOFA Score Response (Comments) Value PaO2/FiO2 (mmHg) < 400 1 SaO2 / FIO2 221 - 301 1 Platelets (x10) > 150 0 Bilirubin (mg/dL) < 1.2 0 Ellie Coma Score 6 - 9 3 Level of Hypotension No Hypotension 0 Creatinine (mg/dL) < 1.2 0 Total 5 Assessment & Plan #1 performed brain injury, anoxic versus hypoglycemic versus medication related. #2 persistent vegetative state. #3 acute respiratory failure secondary to above. #4 history of COPD home O2 dependent. #5 history of the diabetes poorly controlled. Plan: #1 lumbar puncture was done, results are consistent with high protein and normal glucose. Sed count on normal. #2 continue ventilatory support. #3 we will attempt spontaneous breathing trial in the morning. #4 due to the patient's increased infiltrates in the right lower lobe and increased secretions I agree with Dr. West starting the patient empirically on antibiotics. #5 long discussion took place with the family at the bedside regarding the next step. They are awaiting the arrival of her grandson sometimes this week. According to them her wishes are not to pursue life support and stay in vegetative state. #6 palliative care consult. #7 DVT prophylaxis. #8 GI prophylaxis. #9 lumbar puncture done, fluid was sent also for HSV and prion detection. Case discussed with the staff about some details. Critical care time spent with the patient was 45 minutes. Consults & Procedures Consultants: neurology Procedures: none Data Medications: Current Inpatient Medications Medications (Trade) Dose Ordered Sig/Wai Route Start Time Stop Time Status Last Admin Dose Admin Ioversol (Optiray 320) 125 ml UD PRN IV 09/20/17 12:45 09/24/17 12:44 Pantoprazole Sodium (Protonix Tab) 40 mg DAILY PO 09/21/17 09:00 10/21/17 08:59 09/22/17 07:53 40 MG Glucose (Glucose 40% Gel) 15-30 GRAMS 15 GRAMS... UD PRN PO 09/20/17 13:15 10/20/17 13:14 Glucose (Glucose Chew Tab) 4-8 Tablets 4 Tabl... UD PRN PO 09/20/17 13:15 10/20/17 13:14 Dextrose (Dextrose 50% 50ML Syringe) 25-50ML OF 50% DW IV FOR... UD PRN IV 09/20/17 13:15 10/20/17 13:14 09/21/17 07:00 50 ML Glucagon (Glucagon Inj) 1 mg UD PRN SQ 09/20/17 13:15 10/20/17 13:14 Heparin Sodium (Porcine) (Heparin Sq 5000 Unit/0.5ml) 5,000 unit Q8 SQ 09/20/17 22:00 10/20/17 21:59 Future Hold 09/22/17 14:33 5,000 UNIT Fentanyl Citrate (Fentanyl Inj) 100 mcg Q2H IV 09/20/17 16:00 10/04/17 15:59 Midazolam HCl (Versed Inj) 2 mg Q2H PRN IV 09/20/17 14:30 10/20/17 14:29 Carvedilol (Coreg Tab) 3.125 mg BIDM PO 09/20/17 18:00 10/20/17 17:59 09/22/17 16:30 3.125 MG Clopidogrel Bisulfate (plAVix TAB) 75 mg DAILY PO 09/21/17 09:00 10/21/17 08:59 09/22/17 07:53 75 MG Rosuvastatin Calcium (Crestor Tab) 40 mg DAILY PO 09/21/17 09:00 10/21/17 08:59 09/22/17 07:54 40 MG Miscellaneous Information (Consult Glycemic Management Pharmacy) 1 ea UD PRN N/A 09/20/17 14:44 10/20/17 14:43 Insulin Aspart (novoLOG ASPART) SLIDING SCALE Q4 SC 09/21/17 16:00 10/21/17 15:59 09/22/17 20:16 3 UNITS Sodium Chloride 1,000 ml @ 100 mls/hr Q10H IV 09/22/17 10:00 10/22/17 09:59 09/22/17 10:20 100 MLS/HR Aspirin (Aspirin Chew) 81 mg DAILY PO 09/23/17 09:00 10/23/17 08:59 Vancomycin HCl 1250 mg/Sodium Chloride 275 ml @ 125 mls/hr Q24H IV 09/23/17 12:00 09/30/17 11:59 Piperacillin Sod/ Tazobactam Sod (Consult) 1 UD PRN N/A 09/22/17 11:30 10/22/17 11:29 Piperacillin Sod/ Tazobactam Sod 3.375 gm/Dextrose 115 ml @ 28.75 mls/ hr Q8H IV 09/22/17 18:00 09/29/17 17:59 09/22/17 17:58 28.75 MLS/HR Vancomycin HCl (Consult) 1 [facility] PRN N/A 09/22/17 11:45 10/22/17 11:44 Insulin Glargine (Lantus Solostar Pen) Q12H SC 09/22/17 21:00 10/22/17 20:59 I & O: 24-Hour Column 09/23/17 08:00 Intake Total 1370 ml Output Total 300 ml Balance 1070 ml Vital Signs: Date Time Temp Pulse Resp B/P (MAP) Pulse Ox O2 Delivery O2 Flow Rate FiO2 09/22/17 18:45 30 09/22/17 18:00 74 15 160/38 (78) 91 Mechanical Ventilator 30 09/22/17 16:00 36.9 73 16 164/37 (79) 98 Mechanical Ventilator 30 09/22/17 16:00 Mechanical Ventilator 30 09/22/17 16:00 30 09/22/17 14:39 30 09/22/17 14:00 70 14 152/44 (80) 96 Mechanical Ventilator 30 09/22/17 12:40 36.9 69 16 153/38 (76) 98 Mechanical Ventilator 30 09/22/17 12:40 Mechanical Ventilator 30 09/22/17 12:00 30 09/22/17 11:30 30 09/22/17 10:00 76 12 132/36 (68) 98 Mechanical Ventilator 30 09/22/17 08:00 30 09/22/17 08:00 Mechanical Ventilator 30 09/22/17 08:00 Mechanical Ventilator 30 09/22/17 08:00 37.7 85 12 135/41 (72) 98 Mechanical Ventilator 30 09/22/17 07:15 30 09/22/17 05:00 30 09/22/17 04:01 37.4 74 13 160/35 (76) 98 09/22/17 04:00 30 09/22/17 04:00 72 16 98 09/22/17 04:00 99 Mechanical Ventilator 30 09/22/17 03:01 71 15 148/41 (76) 98 09/22/17 03:00 72 15 98 09/22/17 02:01 69 15 145/42 (76) 97 09/22/17 01:51 30 09/22/17 01:01 72 14 123/37 (65) 98 09/22/17 00:01 37.5 69 12 126/35 (65) 98 09/22/17 00:01 99 Mechanical Ventilator 30 09/22/17 00:01 30 09/21/17 23:21 30 09/21/17 23:01 68 12 116/33 (60) 98 09/21/17 23:00 67 12 98 09/21/17 22:01 69 12 112/34 (60) 99 09/21/17 22:00 68 13 99 09/21/17 21:01 75 12 110/36 (60) 98 09/21/17 21:00 76 12 98 Laboratory Results: Last 24 Hours Test 09/21/17 23:52 09/22/17 01:42 09/22/17 01:57 09/22/17 02:26 Bedside Glucose 223 mg/dl 166 mg/dl 154 mg/dl White Blood Count 10.77 K/uL Red Blood Count 3.08 M/uL Hemoglobin 8.7 g/dL Hematocrit 27.8 % Mean Corpuscular Volume 90.3 fL Mean Corpuscular Hemoglobin 28.2 pg Mean Corpuscular Hemoglobin Concent 31.3 g/dl Platelet Count 175 K/uL Mean Platelet Volume 9.7 fL Neutrophils (%) (Auto) 77.7 % Lymphocytes (%) (Auto) 10.9 % Monocytes (%) (Auto) 10.1 % Eosinophils (%) (Auto) 0.6 % Basophils (%) (Auto) 0.4 % Neutrophils # (Auto) 8.38 K/uL Lymphocytes # (Auto) 1.17 K/uL Monocytes # (Auto) 1.09 K/uL Eosinophils # (Auto) 0.06 K/uL Basophils # (Auto) 0.04 K/uL RDW Standard Deviation 53.9 fL RDW Coefficient of Variation 16.2 % Immature Granulocyte % (Auto) 0.3 % Immature Granulocyte # (Auto) 0.03 K/uL Red Blood Cell Morphology Unremarkable Sodium Level 140 mmol/L Potassium Level 3.8 mmol/L Chloride Level 106 mmol/L Carbon Dioxide Level 28 mmol/L Anion Gap 5.0 mmol/L Blood Urea Nitrogen 24 mg/dl Creatinine 1.26 mg/dl Est Creatinine Clear Calc Drug Dose 43.4 ml/min Estimated GFR () 49.6 Estimated GFR (Non- 42.8 BUN/Creatinine Ratio 18.7 Random Glucose 157 mg/dl Calcium Level 8.5 mg/dl Phosphorus Level 2.9 mg/dl Magnesium Level 2.1 mg/dl Test 09/22/17 03:50 09/22/17 07:49 09/22/17 12:48 09/22/17 16:00 Bedside Glucose 147 mg/dl 185 mg/dl 181 mg/dl CSF Color COLORLESS CSF Appearance CLEAR CSF WBC 2 /uL CSF RBC 9 /uL CSF Xanthrochromic NO XANTHOCHROMIA CSF Cell Count Tube # 4 CSF Chemistry Tube # 2 CSF Glucose 93 mg/dl CSF Total Protein 75.8 mg/dl Test 09/22/17 16:26 Bedside Glucose 166 mg/dl
[2017-09-22] MEDS ORDERED: INSULIN GLARGINE SOLOSTAR 100 UNITS/ML 3 ML PEN SC SCH (21:00)
[2017-09-23] VITALS (22 sets, daily range): BP systolic 136–184; BP diastolic 29–47; PULSE 60–83; TEMP 36.6–37.5; O2SAT 91–100
[2017-09-23] MEDS: INSULIN ASPART 100 UNITS/ML 3 ML PEN SC SCH ×5 (00:31→16:35)
[2017-09-23] MEDS: FENTANYL CITRATE INJ 50 MCG/1 ML 2 ML VIAL IV SCH ×5 (02:00→08:00)
[2017-09-23] MEDS: SODIUM CHLORIDE 0.9% 1000ML 1,000 ML IV SCH ×2 (02:06→14:59)
[2017-09-23] MEDS: PIPERACILL/TAZOBAC IV 3.375 GM in DEXTROSE 5% 100ML IV SCH ×3 (02:06→17:55)
[2017-09-23 06:10] LABS: HEMATOCRIT 26.2 % (37-47); HEMOGLOBIN 8.3 g/dL (12.0-16.0); MEAN CELL VOLUME 89.4 fL (80-100); MEAN CORPUSCULAR HEMOGLOBIN 28.3 pg (25-34); MEAN CORPUSCULAR HGB CONC 31.7 g/dl (32-36); MEAN PLATELET VOLUME 10.1 fL (7.4-10.4); PLATELET COUNT 189 K/uL (130-400); RED CELL DISTRIBUTION WIDTH CV 16.1 % (11.5-14.5); RED CELL DISTRIBUTION WIDTH SD 52.4 fL (36.4-46.3); WHITE BLOOD COUNT 11.46 K/uL (4.8-10.8)
[2017-09-23 06:28] LABS: CALCIUM 8.3 mg/dl (8.5-10.1); CREATININE 1.09 mg/dl (0.60-1.20); POTASSIUM 3.3 mmol/L (3.5-5.1)
[2017-09-23] MEDS: CARVEDILOL 3.125 MG TAB PO SCH ×2 (06:35→16:32)
[2017-09-23 07:42] LABS: HEMOGLOBIN A1C 7.4 % (4.5-5.6)
[2017-09-23] MEDS ORDERED: INSULIN GLARGINE SOLOSTAR 100 UNITS/ML 3 ML PEN SC ONE (08:30)
[2017-09-23] MEDS: ROSUVASTATIN CALCIUM 20 MG TAB PO SCH (08:33)
[2017-09-23] MEDS: CLOPIDOGREL BISULFATE 75 MG TAB PO SCH (08:33)
[2017-09-23] MEDS: PANTOprazole SOD 40 MG TAB PO SCH (08:33)
[2017-09-23] MEDS ORDERED: ASPIRIN 81 MG CHEW PO SCH (09:00)
[2017-09-23] MEDS ORDERED: FENTANYL CITRATE INJ 50 MCG/1 ML 2 ML VIAL IV PRN (10:00)
[2017-09-23] MEDS: POTASSIUM CHLR 10 MEQ / WTR 10 MEQ in PREMIXED WATER 100 ML IV SCH ×4 (10:01→13:39)
--- NOTE | 2017-09-23 10:16 | DIAGNOSTIC IMAGING REPORT ---
SINGLE VIEW CHEST CLINICAL HISTORY: Intubation. Left lower lobe pneumonia. FINDINGS: An AP, portable, upright chest radiograph is compared to study performed early or the same day 09/22/2017. Correlation is made with PET/CT dated 09/09/2017. The examination is degraded by portable technique and patient rotation. An endotracheal tube is in place. The tip projects just above the vishal. An enteric tube projects below the diaphragm. The heart is enlarged and there is atherosclerotic calcification of the thoracic aorta. Left basilar consolidation persists. A left pleural effusion is suspected. The skeletal structures are osteopenic. The bony thorax is grossly intact. IMPRESSION: 1. Left basilar consolidation and a small left pleural effusion persist. 2. Cardiomegaly without radiographic evidence of congestive failure. 3. The endotracheal tube is unchanged in position. The tip projects just above the vishal and this may need to be pulled back. Electronically signed by: Kenney Mistry M.D. 09/23/2017 10:15 AM Dictated Date/Time: 09/23/2017 10:12 AM
--- NOTE | 2017-09-23 10:29 | Palliative Care Consultation ---
Consultation Date of Consultation: Sep 23, 2017. Requesting Physician: Dr. Mistry Attending Physician: Dr. West Reason for Consultation: Goals of care History of Present Illness This 71 year old female patient with PMH COPD on home O2 at night, CHF, CAD, CKD stage III, DM and others listed below, presented to the ED three days ago with c/o unresponsiveness, found by her grandson. Patient had last been known well the evening before by other family members. Patient was recently diagnosed with widespread lymphoma while admitted here at [facility] in August 2017. She had not yet undergone any treatment for the cancer and was following with Dr. Anderson for heme/onc. Upon arrival, patient intubated for airway protection. Her BSG was low at 69, even dropping to 43 about [address] head showed nothing acute and patient out of window for TPA as time last known well unknown. CXR with probable bibasilar atelectasis. CTA head showed 50% luminal narrowing of internal carotids, but again nothing acute. MRI brain negative. Patient has unfortunately not had any neurologic function/response since admission and has not required any sedation while on ventilator. She has no pupillary response, positive Babinski in bilateral feet, no response to noxious stimuli, eye gaze deviated to right, does have gag reflex. Repeat MRI done yesterday- no infarct or sign of metastasis. LP performed yesterday in ICU- pending results. Discussions have taken place between family and hospitalist/ ICU teams about goals of care. Palliative is now consulted to assist with establishing goals of care. Past Medical/Surgical History Medical History: CKD stage III COPD on nocturnal O2 Diastolic CHF CAD GERD Anxiety Lymphoma CVA Knee replacement Social History Smoking Status: Former Smoker History of Alcohol Use: No Drug Use: none Housing Status: lives alone Occupation Status: retired Review of Systems unable to obtain ROS due to intubation/obtundation Allergies Coded Allergies: Niacin (Unverified Allergy, Mild, 09/20/17) Medications Current Inpatient Medications Medications (Trade) Dose Ordered Sig/Wai Route Start Time Stop Time Status Last Admin Dose Admin Ioversol (Optiray 320) 125 ml UD PRN IV 09/20/17 12:45 09/24/17 12:44 Pantoprazole Sodium (Protonix Tab) 40 mg DAILY PO 09/21/17 09:00 10/21/17 08:59 09/23/17 08:33 40 MG Glucose (Glucose 40% Gel) 15-30 GRAMS 15 GRAMS... UD PRN PO 09/20/17 13:15 10/20/17 13:14 Glucose (Glucose Chew Tab) 4-8 Tablets 4 Tabl... UD PRN PO 09/20/17 13:15 10/20/17 13:14 Dextrose (Dextrose 50% 50ML Syringe) 25-50ML OF 50% DW IV FOR... UD PRN IV 09/20/17 13:15 10/20/17 13:14 09/21/17 07:00 50 ML Glucagon (Glucagon Inj) 1 mg UD PRN SQ 09/20/17 13:15 10/20/17 13:14 Heparin Sodium (Porcine) (Heparin Sq 5000 Unit/0.5ml) 5,000 unit Q8 SQ 09/20/17 22:00 10/20/17 21:59 Future Hold 09/22/17 14:33 5,000 UNIT Midazolam HCl (Versed Inj) 2 mg Q2H PRN IV 09/20/17 14:30 10/20/17 14:29 Carvedilol (Coreg Tab) 3.125 mg BIDM PO 09/20/17 18:00 10/20/17 17:59 09/23/17 06:35 3.125 MG Clopidogrel Bisulfate (plAVix TAB) 75 mg DAILY PO 09/21/17 09:00 10/21/17 08:59 09/23/17 08:33 75 MG Rosuvastatin Calcium (Crestor Tab) 40 mg DAILY PO 09/21/17 09:00 10/21/17 08:59 09/23/17 08:33 40 MG Miscellaneous Information (Consult Glycemic Management Pharmacy) 1 ea UD PRN N/A 09/20/17 14:44 10/20/17 14:43 Insulin Aspart (novoLOG ASPART) SLIDING SCALE Q4 SC 09/21/17 16:00 10/21/17 15:59 09/23/17 08:32 2 UNITS Sodium Chloride 1,000 ml @ 100 mls/hr Q10H IV 09/22/17 10:00 10/22/17 09:59 09/23/17 02:06 100 MLS/HR Aspirin (Aspirin Chew) 81 mg DAILY PO 09/23/17 09:00 10/23/17 08:59 12/13/17 08:35 81 MG Vancomycin HCl 1250 mg/Sodium Chloride 275 ml @ 125 mls/hr Q24H IV 09/23/17 12:00 09/30/17 11:59 Piperacillin Sod/ Tazobactam Sod (Consult) 1 ea UD PRN N/A 09/22/17 11:30 10/22/17 11:29 Piperacillin Sod/ Tazobactam Sod 3.375 gm/Dextrose 115 ml @ 28.75 mls/ hr Q8H IV 09/22/17 18:00 09/29/17 17:59 09/23/17 10:01 28.75 MLS/HR Vancomycin HCl (Consult) 1 ea UD PRN N/A 09/22/17 11:45 10/22/17 11:44 Insulin Glargine (Lantus Solostar Pen) Q12H SC 09/22/17 21:00 10/22/17 20:59 Future Hold 09/22/17 21:06 8 UNITS Potassium Chloride 10 meq/ Prmx 100 ml @ 100 mls/hr Q1H IV 09/23/17 09:30 09/23/17 13:29 09/23/17 10:01 100 MLS/HR Fentanyl Citrate (Fentanyl Inj) 100 mcg Q2H PRN IV 09/23/17 10:00 10/04/17 15:59 Physical Exam Date Time Temp Pulse Resp B/P (MAP) Pulse Ox O2 Delivery O2 Flow Rate FiO2 09/23/17 10:00 62 12 157/38 (77) 94 Mechanical Ventilator 30 09/23/17 08:00 37.0 70 12 153/38 (76) 97 Mechanical Ventilator 30 09/23/17 08:00 30 09/23/17 08:00 30 09/23/17 08:00 Mechanical Ventilator 30 09/23/17 06:31 60 12 167/33 (106) 96 09/23/17 06:01 62 12 181/37 (98) 96 09/23/17 05:32 68 14 175/41 (70) 97 09/23/17 05:25 30 09/23/17 05:01 67 14 150/31 (61) 97 09/23/17 04:31 65 13 155/33 (79) 98 09/23/17 04:01 67 15 136/41 (74) 97 09/23/17 04:00 Mechanical Ventilator 30 09/23/17 04:00 30 09/23/17 04:00 36.8 09/23/17 03:01 68 17 159/31 (70) 98 09/23/17 02:31 73 14 154/34 (69) 95 09/23/17 02:15 30 09/23/17 02:01 68 15 162/31 (67) 97 09/23/17 01:31 71 14 160/29 (68) 97 09/23/17 01:01 72 15 154/32 (81) 96 09/23/17 00:31 76 14 147/38 (78) 97 09/23/17 00:01 73 15 145/34 (66) 97 09/23/17 00:00 30 09/23/17 00:00 37.5 09/23/17 00:00 Mechanical Ventilator 30 09/22/17 23:31 70 14 157/35 (83) 98 09/22/17 23:01 70 14 148/40 (83) 97 09/22/17 22:40 30 09/22/17 22:31 73 13 138/30 (66) 93 09/22/17 22:01 72 13 134/33 (64) 94 09/22/17 21:31 77 16 112/29 (48) 92 09/22/17 21:01 71 12 108/31 (56) 93 09/22/17 20:31 71 18 106/30 (57) 95 09/22/17 20:25 30 09/22/17 20:01 72 13 111/28 (57) 96 09/22/17 20:00 Mechanical Ventilator 30 09/22/17 20:00 30 09/22/17 19:45 38.2 09/22/17 18:45 30 09/22/17 18:00 74 15 160/38 (78) 91 Mechanical Ventilator 30 09/22/17 16:00 36.9 73 16 164/37 (79) 98 Mechanical Ventilator 30 09/22/17 16:00 Mechanical Ventilator 30 09/22/17 16:00 30 09/22/17 14:39 30 09/22/17 14:00 70 14 152/44 (80) 96 Mechanical Ventilator 30 09/22/17 12:40 36.9 69 16 153/38 (76) 98 Mechanical Ventilator 30 09/22/17 12:40 Mechanical Ventilator 30 09/22/17 12:00 30 09/22/17 11:30 30 General Appearance: no apparent distress, + obese Eyes: + pertinent finding (no pupillary response) ENT: + pertinent finding (ETT and OGT present) Neck: no JVD Respiratory: no respiratory distress, no accessory muscle use, + pertinent finding (mechanically ventilated; CPAP trial while in room-- small shallow breaths at slow rate) Cardiovascular: regular rate, rhythm, + normal peripheral pulses Abdomen: normal bowel sounds, soft Neurologic/Psychiatric: + pertinent finding (obtunded with no sedation) Laboratory Results Last 24 Hours Test 09/22/17 12:48 09/22/17 16:00 09/22/17 16:26 09/22/17 20:10 Bedside Glucose 181 mg/dl 166 mg/dl 219 mg/dl CSF Color COLORLESS CSF Appearance CLEAR CSF WBC 2 /uL CSF RBC 9 /uL CSF Xanthrochromic NO XANTHOCHROMIA CSF Cell Count Tube # 4 CSF Chemistry Tube # 2 CSF Glucose 93 mg/dl CSF Total Protein 75.8 mg/dl Test 09/22/17 23:45 09/23/17 03:46 09/23/17 05:18 09/23/17 08:29 Bedside Glucose 195 mg/dl 183 mg/dl 198 mg/dl White Blood Count 11.46 K/uL Red Blood Count 2.93 M/uL Hemoglobin 8.3 g/dL Hematocrit 26.2 % Mean Corpuscular Volume 89.4 fL Mean Corpuscular Hemoglobin 28.3 pg Mean Corpuscular Hemoglobin Concent 31.7 g/dl RDW Standard Deviation 52.4 fL RDW Coefficient of Variation 16.1 % Platelet Count 189 K/uL Mean Platelet Volume 10.1 fL Sodium Level 139 mmol/L Potassium Level 3.3 mmol/L Chloride Level 108 mmol/L Carbon Dioxide Level 25 mmol/L Anion Gap 6.0 mmol/L Blood Urea Nitrogen 22 mg/dl Creatinine 1.09 mg/dl Est Creatinine Clear Calc Drug Dose 51.0 ml/min Estimated GFR () 59.1 Estimated GFR (Non- 51.0 BUN/Creatinine Ratio 20.5 Random Glucose 176 mg/dl Estimated Average Glucose 166 mg/dl Hemoglobin A1c 7.4 % Calcium Level 8.3 mg/dl Magnesium Level 1.9 mg/dl Assessment & Plan Palliative Performance Scale: 10 % Problem list: Obtundation Unresponsive episode- ?etiology: hypoglycemic vs. hypoxic episode with residual anoxic brain injury. No infarct on MRI, EEG negative for seizure activity. COPD with home O2 use Widespread metastatic lymphoma- diagnosed 08/2017, had not yet received any treatment Goals of care (Z51.5) Palliative care recs: -Extremely poor prognosis and risk for prolonged vegetative state. -If family wishes to continue life prolonging/aggressive measures, patient would likely require trach and PEG. She would then end up in SNF/LTACH in this comatose state. -Family may also decide to withdraw care and pursue comfort measures. Family meeting at 1:45pm today with patient's daughter Esther, and whatever other family members wish to be present. -Further recommendations will be determined once goals of care are established. Thank you kindly for this consult. I will follow.
--- NOTE | 2017-09-23 10:33 | Progress Note ---
Internal Med Progress Note Date of Service: Sep 23, 2017. Provider Documentation: SUBJECTIVE: no change in neurological status noted overnight remains unresponsive /comatose /intubated /without any sedation or pain meds noted to have deviated eye gaze to right /no pupillary reflex noted on light , fixed mid dilated pupils bilat prognosis remains very poor -possible persisted vegetative state with OBJECTIVE: Vital Signs-as noted below Exam: General-elderly female , unresponsive on vent Eyes-pupils mid dilated on rt side . could not appreciate any pupillary response to light ENT-ET tube , NG tube present , tongue protruded Neck-no JVD noted Lungs-diminished breath sound , no wheeze or rales noted Heart-regular Abdomen-soft, + bowel sound Extremities-warm . BS + ve Neuro-unresponsive /no reflex could be elicited , remains comatose on not requiring any sedation /absence of pupillary response to light Lab data as noted below. 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 with persisted vegetative state very poor prognosis underlying wide spread /multi organ involved metastatic lymphoma appreciate input form Palliative care and Utility Division Project Manager trial of CPAP failed as pt was able to initiate few shallow breath had detail discussion with Family Members -Daughter Esther , with her other sisters and Son pt' sisters were present at bedside as well Family is updated possible non reversibility of the comatose status in the prior discussions Pt mentioned to daughters she never wanted to be kept alive if there is no quality of life family wants to have some time with the pt possibly will be terminally extubated and pursue comfort care /hospice 09/22/17 Definitive etiology remains unknown differentials : acute brain stem CVA /lymphangitic spread /brain mets of aggressive lymphoproliferative disease presented with unresponsive state family found her slumped over with tongue protruded possible acute CVA -was not a tPA candidate on presentation -unknown time of onset /wide spread metastatic malignancy CT of brain on admission 09/20/17 no acute change noted CTA of brain : 1. Moderate to extensive atherosclerotic plaquing involves the bilateral cavernous and clinoid portions of the internal carotid arteries causing approximately 50% luminal narrowing. 2. No high-grade stenosis, aneurysm, dissection or proximal branch occlusion identified. MRI of brain with out contrast : No acute intracranial abnormality identified. No acute infarction or focal mass identified. multiple EEG done to R/o Seizure -was negative finding no evidence of sepsis , no significant electrolyte imbalance that can contribute to mental status change appreciate input from Utility Division Project Manager and Neurology pt is intubated for air way protection no movement of grimaces noted while remaining intubated with out any sedation or pain medications prognosis remains very poor possible brain stem acute spread comfort care /hospice will be appropriate CKD STAGE 3 cr approx baseline HTN BP stable on Coreg 3.125 mg BID via NG tube TYPE 2 DM : poorly controlled recent Hb A1c being > 8 presented with hypoglycemic state later BSG's were elevated was briefly on IV Insulin GTT -D/joe on Sub q heparin /basal Lantus accucheck Q 6hrs as pt remains NPO appreciate pharmacy input for glycemic management RECENTLY DIAGNOSED LYMPHOMA WITH WIDE SPREAD METASTASIS : Incidental finding of wide spread abdominal and retroperitoneal Lymphadenopathy in CT abdomen/pelvis on 08/27/17 as pt was admitted for intractable abdominal pain CT guided retroperitoneal LN biopsy on 08/27/17 Pathology shows : 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 PET scan on 09/09/17 : -Multiple FDG avid LN seen within the neck , chest , abdomen and pelvis , most pronounced within the retroperitoneal space , the majority of these have increased in size since imaging on 08/27/17 and are consistent with history of lymphoma -asymmetric soft tissue fullness with abnormal FDG uptake with the left nasopharyngeal soft tissues , right palatine tonsil, and left lateral retropharyngeal space -consistent with sites of disease -FDG avid left pleural effusion consistent with a malignancy pleural effusion Pt was seen at Dr Anderson's office on 09/15/17 referral made for ENT for the soft tissue mass on nasopharyngeal area Plan was to get referral to surgery for Port placement for Chemo tx on recommendation for chemotherapy protocol for B-cell lymphoma per Dr Anderson was R-EPOCH (Rituxan, etoposide, prednisone, vincristine, Adriamycin, cyclophosphamide). or R-CHOP chemotherapy. Pt has not received any Chemo tx Pt presented with unresponsive state prior to Surgery follow up for A Port her overall prognosis remains extremely poor with persisted vegetative state -hospice /palliative care will be appropriate Dr Anderson updated DNR/DNI DISPOSITION family meeting at bedside with Palliative care /executive vice president business development pt will be transitioned to Hospice /Comfort care post extubation Vital Signs: Date Time Temp Pulse Resp B/P (MAP) Pulse Ox O2 Delivery O2 Flow Rate FiO2 09/23/17 11:25 30 09/23/17 10:00 62 12 157/38 (77) 94 Mechanical Ventilator 30 09/23/17 08:00 37.0 70 12 153/38 (76) 97 Mechanical Ventilator 30 09/23/17 08:00 30 09/23/17 08:00 30 09/23/17 08:00 Mechanical Ventilator 30 09/23/17 08:00 Mechanical Ventilator 30 09/23/17 06:31 60 12 167/33 (106) 96 09/23/17 06:01 62 12 181/37 (98) 96 09/23/17 05:32 68 14 175/41 (70) 97 09/23/17 05:25 30 09/23/17 05:01 67 14 150/31 (61) 97 09/23/17 04:31 65 13 155/33 (79) 98 09/23/17 04:01 67 15 136/41 (74) 97 09/23/17 04:00 Mechanical Ventilator 30 09/23/17 04:00 30 09/23/17 04:00 36.8 09/23/17 03:01 68 17 159/31 (70) 98 09/23/17 02:31 73 14 154/34 (69) 95 09/23/17 02:15 30 09/23/17 02:01 68 15 162/31 (67) 97 09/23/17 01:31 71 14 160/29 (68) 97 09/23/17 01:01 72 15 154/32 (81) 96 09/23/17 00:31 76 14 147/38 (78) 97 09/23/17 00:01 73 15 145/34 (66) 97 09/23/17 00:00 30 09/23/17 00:00 37.5 09/23/17 00:00 Mechanical Ventilator 30 09/22/17 23:31 70 14 157/35 (83) 98 09/22/17 23:01 70 14 148/40 (83) 97 09/22/17 22:40 30 09/22/17 22:31 73 13 138/30 (66) 93 09/22/17 22:01 72 13 134/33 (64) 94 09/22/17 21:31 77 16 112/29 (48) 92 09/22/17 21:01 71 12 108/31 (56) 93 09/22/17 20:31 71 18 106/30 (57) 95 09/22/17 20:25 30 09/22/17 20:01 72 13 111/28 (57) 96 09/22/17 20:00 Mechanical Ventilator 30 09/22/17 20:00 30 09/22/17 19:45 38.2 09/22/17 18:45 30 09/22/17 18:00 74 15 160/38 (78) 91 Mechanical Ventilator 30 09/22/17 16:00 36.9 73 16 164/37 (79) 98 Mechanical Ventilator 30 09/22/17 16:00 Mechanical Ventilator 30 09/22/17 16:00 30 Lab Results: Results Past 24 Hours Test 09/22/17 16:00 09/22/17 16:26 09/22/17 20:10 09/22/17 23:45 Range/Units CSF Color COLORLESS CSF Appearance CLEAR CSF WBC 2 0-5 /uL CSF RBC 9 0 /uL CSF Xanthrochromic NO XANTHOCHROMIA CSF Cell Count Tube # 4 CSF Chemistry Tube # 2 CSF Glucose 93 40-70 mg/dl CSF Total Protein 75.8 15.0-45.0 mg/dl Bedside Glucose 166 219 195 70-90 mg/dl Test 09/23/17 03:46 09/23/17 05:18 09/23/17 08:29 Range/Units Bedside Glucose 183 198 70-90 mg/dl White Blood Count 11.46 4.8-10.8 K/uL Red Blood Count 2.93 4.2-5.4 M/uL Hemoglobin 8.3 12.0-16.0 g/dL Hematocrit 26.2 37-47 % Mean Corpuscular Volume 89.4 80-100 fL Mean Corpuscular Hemoglobin 28.3 25-34 pg Mean Corpuscular Hemoglobin Concent 31.7 32-36 g/dl RDW Standard Deviation 52.4 36.4-46.3 fL RDW Coefficient of Variation 16.1 11.5-14.5 % Platelet Count 189 130-400 K/uL Mean Platelet Volume 10.1 7.4-10.4 fL Sodium Level 139 136-145 mmol/L Potassium Level 3.3 3.5-5.1 mmol/L Chloride Level 108 98-107 mmol/L Carbon Dioxide Level 25 21-32 mmol/L Anion Gap 6.0 3-11 mmol/L Blood Urea Nitrogen 22 7-18 mg/dl Creatinine 1.09 0.60-1.20 mg/dl Est Creatinine Clear Calc Drug Dose 51.0 ml/min Estimated GFR () 59.1 Estimated GFR (Non- 51.0 BUN/Creatinine Ratio 20.5 10-20 Random Glucose 176 70-99 mg/dl Estimated Average Glucose 166 mg/dl Hemoglobin A1c 7.4 4.5-5.6 % Calcium Level 8.3 8.5-10.1 mg/dl Magnesium Level 1.9 1.8-2.4 mg/dl Microbiology Results 09/22/17 Gram Stain - Final, Resulted 09/22/17 CSF Culture - Preliminary, Resulted NO GROWTH TO DATE.
[2017-09-23] MEDS ORDERED: VANCOMYCIN INJ 1,250 MG in SODIUM CHLORIDE 0.9% 250ML 250 ML IV SCH (12:00)
[2017-09-23] MEDS ORDERED: PEPTAMEN INTENSE VHP 1000ML BAG OG PRN (12:15)
[2017-09-23] MEDS ORDERED: NURSING VERBAL MED ORDER ONE (13:15)
[2017-09-23] MEDS: HEPARIN SOD 5000 UNIT/0.5 ML CARP SQ SCH (15:00)
--- NOTE | 2017-09-23 15:35 | Critical Care Progress Note ---
Critical Care Progress Note Date of Service Sep 23, 2017. Attending Dr. Mistry Subjective Review of system was not obtainable. The patient remains comatose and intubated. Objective VSS, S1S2, RRR, lungs with rhonchi, abdomen is benign. CCE. neuro she has a left lateral gaze but pupils are equally reactive to light. cough reflex, no MS response even to pain. On 09/22/2017 examination, the patient could not fully open her eyes, her pupils also reactive to light, she does have cough reflex, no stridor, heart examination S1-S2 regular rate and rhythm, abdomen is benign, lungs with distant breath sounds, no edema, Neurologically the patient does have upgoing Babinski toes, bilaterally, no response to tactile or verbal, remains comatose. No response to flumazenil at the bedside. On 09/23/2017, the patient remains comatose, today unfortunately, the patient has no pupils response to light. She is not responding to verbal or tactile even painful stimuli. I did not appreciate reflexes in the patellar. However the patient is erythematous and has total knee replacement on the left. Heart examination S1-S2 regular rate and rhythm, she has bilateral distant breath sounds, abdomen is benign with edema peripherally. Current SOFA Score SOFA Score Response (Comments) Value PaO2/FiO2 (mmHg) < 400 1 SaO2 / FIO2 221 - 301 1 Platelets (x10) > 150 0 Bilirubin (mg/dL) < 1.2 0 Ellie Coma Score 6 - 9 3 Level of Hypotension No Hypotension 0 Creatinine (mg/dL) < 1.2 0 Total 5 Assessment & Plan #1 acute brain injury, anoxic versus hypoglycemic versus medications. #2 remains comatose in persistent vegetative state. #3 B-cell lymphoma recently diagnosed. With metastasis. #4 history of diabetes poorly controlled. #5 COPD goal level III on home O2 nocturnally. #6 right lower lobe pneumonia. Plan: #1 continue to keep the patient off sedation. #2 the patient failed CPAP trial. #3 bronchodilators. #4 CSF showed elevated protein but normal cells. Unclear significance of these findings. Cytology is pending. #5. replete Her electrolytes. #6 the patient had episodes of bradycardia felt to be related to medications. #7 tube feeding was started and then stopped after family decided to terminally withdraw care, they are on their way to arrive at the bedside. #8 appreciate palliative care assistance with this case. #9 continue DVT and GI prophylaxis until further decision from the family. #10 case discussed with the family, with the staff, critical care time spent with the patient was 45 minutes. Consults & Procedures Consultants: neurology Procedures: none Data Medications: Current Inpatient Medications Medications (Trade) Dose Ordered Sig/Wai Route Start Time Stop Time Status Last Admin Dose Admin Ioversol (Optiray 320) 125 ml UD PRN IV 09/20/17 12:45 09/24/17 12:44 Pantoprazole Sodium (Protonix Tab) 40 mg DAILY PO 09/21/17 09:00 10/21/17 08:59 09/23/17 08:33 40 MG Glucose (Glucose 40% Gel) 15-30 GRAMS 15 GRAMS... UD PRN PO 09/20/17 13:15 10/20/17 13:14 Glucose (Glucose Chew Tab) 4-8 Tablets 4 Tabl... UD PRN PO 09/20/17 13:15 10/20/17 13:14 Dextrose (Dextrose 50% 50ML Syringe) 25-50ML OF 50% DW IV FOR... UD PRN IV 09/20/17 13:15 10/20/17 13:14 09/21/17 07:00 50 ML Glucagon (Glucagon Inj) 1 mg UD PRN SQ 09/20/17 13:15 10/20/17 13:14 Heparin Sodium (Porcine) (Heparin Sq 5000 Unit/0.5ml) 5,000 unit Q8 SQ 09/20/17 22:00 10/20/17 21:59 Future hold 09/22/17 14:33 5,000 UNIT Midazolam HCl (Versed Inj) 2 mg Q2H PRN IV 09/20/17 14:30 10/20/17 14:29 Carvedilol (Coreg Tab) 3.125 mg BIDM PO 09/20/17 18:00 10/20/17 17:59 09/23/17 06:35 3.125 MG Clopidogrel Bisulfate (plAVix TAB) 75 mg DAILY PO 09/21/17 09:00 10/21/17 08:59 09/23/17 08:33 75 MG Rosuvastatin Calcium (Crestor Tab) 40 mg DAILY PO 09/21/17 09:00 10/21/17 08:59 09/23/17 08:33 40 MG Miscellaneous Information (Consult Glycemic Management Pharmacy) 1 UD PRN N/A 09/20/17 14:44 10/20/17 14:43 Insulin Aspart (novoLOG ASPART) SLIDING SCALE Q4 SC 09/21/17 16:00 10/21/17 15:59 09/23/17 12:08 2 UNITS Sodium Chloride 1,000 ml @ 80 mls/hr [id number] IV 09/22/17 10:00 10/22/17 09:59 09/23/17 14:59 80 MLS/HR Aspirin (Aspirin Chew) 81 mg DAILY PO 09/23/17 09:00 10/23/17 08:59 09/23/17 08:35 81 MG Vancomycin HCl 1250 mg/Sodium Chloride 275 ml @ 125 mls/hr Q24H IV 09/23/17 12:00 09/30/17 11:59 09/23/17 11:45 125 MLS/HR Piperacillin Sod/ Tazobactam Sod (Consult) 1 [facility] PRN N/A 09/22/17 11:30 10/22/17 11:29 Piperacillin Sod/ Tazobactam Sod 3.375 gm/Dextrose 115 ml @ 28.75 mls/ hr Q8H IV 09/22/17 18:00 09/29/17 17:59 09/23/17 10:01 28.75 MLS/HR Vancomycin HCl (Consult) 1 [facility] PRN N/A 09/22/17 11:45 10/22/17 11:44 Insulin Glargine (Lantus Solostar Pen) Q12H SC 09/22/17 21:00 10/22/17 20:59 Future hold 09/22/17 21:06 8 UNITS Fentanyl Citrate (Fentanyl Inj) 100 mcg Q2H PRN IV 09/23/17 10:00 10/04/17 15:59 I & O: 24-Hour Column 09/24/17 08:00 Intake Total 1353 ml Output Total 175 ml Balance 1178 ml Vital Signs: Date Time Temp Pulse Resp B/P (MAP) Pulse Ox O2 Delivery O2 Flow Rate FiO2 09/23/17 11:25 30 09/23/17 10:00 62 12 157/38 (77) 94 Mechanical Ventilator 30 09/23/17 08:00 37.0 70 12 153/38 (76) 97 Mechanical Ventilator 30 09/23/17 08:00 30 09/23/17 08:00 30 09/23/17 08:00 Mechanical Ventilator 30 09/23/17 08:00 Mechanical Ventilator 30 09/23/17 06:31 60 12 167/33 (106) 96 09/23/17 06:01 62 12 181/37 (98) 96 09/23/17 05:32 68 14 175/41 (70) 97 09/23/17 05:25 30 09/23/17 05:01 67 14 150/31 (61) 97 09/23/17 04:31 65 13 155/33 (79) 98 09/23/17 04:01 67 15 136/41 (74) 97 09/23/17 04:00 Mechanical Ventilator 30 09/23/17 04:00 30 09/23/17 04:00 36.8 09/23/17 03:01 68 17 159/31 (70) 98 09/23/17 02:31 73 14 154/34 (69) 95 09/23/17 02:15 30 09/23/17 02:01 68 15 162/31 (67) 97 09/23/17 01:31 71 14 160/29 (68) 97 09/23/17 01:01 72 15 154/32 (81) 96 09/23/17 00:31 76 14 147/38 (78) 97 09/23/17 00:01 73 15 145/34 (66) 97 09/23/17 00:00 30 09/23/17 00:00 37.5 09/23/17 00:00 Mechanical Ventilator 30 09/22/17 23:31 70 14 157/35 (83) 98 09/22/17 23:01 70 14 148/40 (83) 97 09/22/17 22:40 30 09/22/17 22:31 73 13 138/30 (66) 93 09/22/17 22:01 72 13 134/33 (64) 94 09/22/17 21:31 77 16 112/29 (48) 92 09/22/17 21:01 71 12 108/31 (56) 93 09/22/17 20:31 71 18 106/30 (57) 95 09/22/17 20:25 30 09/22/17 20:01 72 13 111/28 (57) 96 09/22/17 20:00 Mechanical Ventilator 30 09/22/17 20:00 30 09/22/17 19:45 38.2 09/22/17 18:45 30 09/22/17 18:00 74 15 160/38 (78) 91 Mechanical Ventilator 30 09/22/17 16:00 36.9 73 16 164/37 (79) 98 Mechanical Ventilator 30 09/22/17 16:00 Mechanical Ventilator 30 09/22/17 16:00 30 Laboratory Results: Last 24 Hours Test 09/22/17 16:00 09/22/17 16:26 09/22/17 20:10 09/22/17 23:45 CSF Color COLORLESS CSF Appearance CLEAR CSF WBC 2 /uL CSF RBC 9 /uL CSF Xanthrochromic NO XANTHOCHROMIA CSF Cell Count Tube # 4 CSF Chemistry Tube # 2 CSF Glucose 93 mg/dl CSF Total Protein 75.8 mg/dl Bedside Glucose 166 mg/dl 219 mg/dl 195 mg/dl Test 09/23/17 03:46 09/23/17 05:18 09/23/17 08:29 Bedside Glucose 183 mg/dl 198 mg/dl White Blood Count 11.46 K/uL Red Blood Count 2.93 M/uL Hemoglobin 8.3 g/dL Hematocrit 26.2 % Mean Corpuscular Volume 89.4 fL Mean Corpuscular Hemoglobin 28.3 pg Mean Corpuscular Hemoglobin Concent 31.7 g/dl RDW Standard Deviation 52.4 fL RDW Coefficient of Variation 16.1 % Platelet Count 189 K/uL Mean Platelet Volume 10.1 fL Sodium Level 139 mmol/L Potassium Level 3.3 mmol/L Chloride Level 108 mmol/L Carbon Dioxide Level 25 mmol/L Anion Gap 6.0 mmol/L Blood Urea Nitrogen 22 mg/dl Creatinine 1.09 mg/dl Est Creatinine Clear Calc Drug Dose 51.0 ml/min Estimated GFR () 59.1 Estimated GFR (Non- 51.0 BUN/Creatinine Ratio 20.5 Random Glucose 176 mg/dl Estimated Average Glucose 166 mg/dl Hemoglobin A1c 7.4 % Calcium Level 8.3 mg/dl Magnesium Level 1.9 mg/dl
--- NOTE | 2017-09-23 16:42 | PROGRESS NOTE ---
DATE: 09/23/2017 SUBJECTIVE: Nidia looks actually a little worse than she did yesterday. I cannot get her to withdraw much with noxious stimulation on either arm, except a minimal amount on the left which was much more vigorous yesterday and I did not get any eye opening. She is being suctioned and does have a little bit of a response to this, but otherwise there is very little spontaneous activity. CSF analysis shows an elevated protein, not surprising in light of what transpired. The MRI in my opinion is consistent with laminar necrosis, probably as a result of hypoxic ischemic insult, suffered overnight and not witnessed by family members. There is no evidence for seizure activity on EEG other than a little cortical irritability early on, on a continuous monitoring which was not maintained and clinically no seizure activity has been seen. Cytology is pending, testing for the prion disorder is up in the air right now. I discussed this with pathologist and at present I think she is going to be extubated and will probably succumb to respiratory failure, making further diagnostic studies of academic interest only. I told the pathologist to hold on the CSF analysis to check back tomorrow and if indeed the patient is still alive, we may go ahead with the testing, but frankly I do not think that is going to be necessary and the odds that this is a prion disorder is incredibly low anyway. I will check back with her tomorrow if she is here. AMANDAD
[2017-09-23] MEDS ORDERED: MoRPHine SULFATE 2 MG/ML CARP ONE (18:31)
[2017-09-23] MEDS ORDERED: MoRPHine SULFATE 4 MG/ML 1 ML CARP\\VIAL IV ONE (18:40)
[2017-09-23] MEDS: MoRPHine SULFATE 4 MG/ML 1 ML CARP\\VIAL IV PRN (21:38)
[2017-09-23] MEDS: LORAZEPAM 2 MG/ML 1 ML VIAL IV PRN (23:00)
[2017-09-24 00:01] VITALS: BP 184/62; PULSE 82; TEMP 37; O2SAT 88
[2017-09-24] MEDS: MoRPHine SULFATE 4 MG/ML 1 ML CARP\\VIAL IV PRN ×2 (01:15→03:49)
[2017-09-24] MEDS: LORAZEPAM 2 MG/ML 1 ML VIAL IV PRN (02:15)
[2017-09-24] MEDS: MoRPHine SULF/NSS 250MG/250ML 250 ML IV PRN ×3 (03:49→21:00)
[2017-09-24 04:00] VITALS: PULSE 68
[2017-09-24 06:00] VITALS: PULSE 70
[2017-09-24 08:00] VITALS: PULSE 67
[2017-09-24] MEDS ORDERED: SCOPOLAMINE 1.5 MG TDSY TD SCH (11:00)
[2017-09-24] MEDS ORDERED: VANCOMYCIN TROUGH ONE (11:30)
[2017-09-24] MEDS ORDERED: NURSING VERBAL MED ORDER ONE ×5 (11:30→23:10)
[2017-09-24] MEDS ORDERED: ATROPINE SULFATE 1% OP SOLN 2 ML BTL ONE (11:38)
[2017-09-24] MEDS ORDERED: NURSING DECISION MEDICATION ORDER SCH (12:15)
[2017-09-24] MEDS: ATROPINE SULFATE 1% OP SOLN 5 ML BTL SL PRN ×6 (13:30→23:33)
--- NOTE | 2017-09-24 13:33 | Palliative Care Progress Note ---
Palliative Care Progress Note Date of Service Sep 24, 2017. Subjective Pt evaluation today including: conversation w/ family (son, Jeanmarie, and Jeanmarie's ), physical exam, chart review, review of inpatient medication list Pain: no s/s pain while on morphine gtt PO Intake: none Voiding: dunaway catheter in place (oliguria) -Patient was terminally extubated last evening around 1930 per the family. -She is on continuous morphine infusion. -Family at bedside, doing well. Review of Systems unable to obtain ROS due to obtundation. Objective Vital Signs Date Time Temp Pulse Resp B/P (MAP) Pulse Ox O2 Delivery O2 Flow Rate FiO2 09/24/17 08:00 Nasal Cannula 2.0 09/24/17 08:00 67 18 Nasal Cannula 2.0 09/24/17 06:00 70 Nasal Cannula 2.0 09/24/17 04:00 Nasal Cannula 2.0 09/24/17 04:00 68 09/24/17 00:01 37.0 82 24 184/62 (102) 88 Nasal Cannula 2.0 09/23/17 23:59 Nasal Cannula 2.0 09/23/17 22:00 83 22 Nasal Cannula 2.0 09/23/17 20:00 100 Mechanical Ventilator 09/23/17 20:00 30 09/23/17 20:00 76 12 161/43 (82) 100 Mechanical Ventilator 30 09/23/17 18:00 30 09/23/17 16:00 36.6 62 12 184/47 (92) 95 Mechanical Ventilator 30 09/23/17 16:00 Mechanical Ventilator 30 09/23/17 16:00 30 09/23/17 14:40 30 09/23/17 14:00 71 12 154/39 (77) 98 Mechanical Ventilator 30 Physical Exam General Appearance: no apparent distress ENT: + pertinent finding (minimal secretions in throat) Neck: no JVD Respiratory/Chest: no respiratory distress, no accessory muscle use, + pertinent finding (resp rate 17bpm; on nasal cannula) Cardiovascular: regular rate, rhythm Abdomen: normal bowel sounds, soft Neurologic/Psychiatric: + pertinent finding (obtunded) Skin: + pallor, + pertinent finding (no mottling present at this time) Assessment and Plan Problem list: Obtundation Unresponsive episode- ?etiology: hypoglycemic vs. hypoxic episode with residual anoxic brain injury. No infarct on MRI, EEG negative for seizure activity. COPD with home O2 use Widespread metastatic lymphoma- diagnosed 08/2017, had not yet received any treatment Goals of care (Z51.5) Palliative care recs: -Patient was terminally extubated last evening. Comfort measures only. -On continuous morphine infusion, current at 4mg/hr. -Would add atropine 1% oph soln 4 drops Q1h PRN secretions. Secretions aren't bad at this time but I do hear some moistness. -Family at bedside. They are appreciative of care patient is receiving. They're all at peace with this decision and deny any questions/concerns. Support given. Thank you again for this consult. Please contact me with any further palliative care needs. Palliative Performance Scale: 10 %
[2017-09-24] MEDS: CHECK SCOPOLAMINE PATCH PLACEMENT SCH ×2 (15:27→23:22)
--- NOTE | 2017-09-24 16:11 | PROGRESS NOTE ---
DATE: 09/24/2017 SUBJECTIVE: Nidia has been moved out of the unit, she has been extubated, she is up on the fourth floor on comfort care measures only, as per family request. This is quite appropriate given the severity of her presumptive anoxic ischemic encephalopathy. For now, neurology is going to sign off the case and will see her obviously if there are other issues that arise in the future.
--- NOTE | 2017-09-24 18:56 | Progress Note ---
Internal Med Progress Note Date of Service: Sep 24, 2017. Provider Documentation: SUBJECTIVE: extubated on comfort care with IV morphine gtt OBJECTIVE: Vital Signs-as noted below minimum exam due to comfort care Exam: General-elderly female , Eyes-pupils mid dilated on rt side . Neuro-unresponsive /no reflex could be elicited , remains comatose on not requiring any sedation /absence of pupillary response to light Lab data as noted below. ASSESSMENT & PLAN: UNRESPONSIVENESS /ACUTE CHANGE IN MENTAL STATUS /COMA: COMFORT CARE HOSPICE 09/24/17 pt is terminally extubated on IV morphine gtt 09/23/17 : no improvement in neurological status Absence of pupillary response possible irreversible encephalopathy with persisted vegetative state very poor prognosis underlying wide spread /multi organ involved metastatic lymphoma appreciate input form Palliative care and Geodetic Surveyor trial of CPAP failed as pt was able to initiate few shallow breath had detail discussion with Family Members -Daughter Esther , with her other sisters and Son pt' sisters were present at bedside as well Family is updated possible non reversibility of the comatose status in the prior discussions Pt mentioned to daughters she never wanted to be kept alive if there is no quality of life family wants to have some time with the pt possibly will be terminally extubated and pursue comfort care /hospice 09/22/17 Definitive etiology remains unknown differentials : acute brain stem CVA /lymphangitic spread /brain mets of aggressive lymphoproliferative disease presented with unresponsive state family found her slumped over with tongue protruded possible acute CVA -was not a tPA candidate on presentation -unknown time of onset /wide spread metastatic malignancy CT of brain on admission 09/20/17 no acute change noted CTA of brain : 1. Moderate to extensive atherosclerotic plaquing involves the bilateral cavernous and clinoid portions of the internal carotid arteries causing approximately 50% luminal narrowing. 2. No high-grade stenosis, aneurysm, dissection or proximal branch occlusion identified. MRI of brain with out contrast : No acute intracranial abnormality identified. No acute infarction or focal mass identified. multiple EEG done to R/o Seizure -was negative finding no evidence of sepsis , no significant electrolyte imbalance that can contribute to mental status change appreciate input from Geodetic Surveyor and Neurology pt is intubated for air way protection no movement of grimaces noted while remaining intubated with out any sedation or pain medications prognosis remains very poor possible brain stem acute spread comfort care /hospice IS appropriate RECENTLY DIAGNOSED LYMPHOMA WITH WIDE SPREAD METASTASIS : Incidental finding of wide spread abdominal and retroperitoneal Lymphadenopathy in CT abdomen/pelvis on 08/27/17 as pt was admitted for intractable abdominal pain CT guided retroperitoneal LN biopsy on 08/27/17 Pathology shows : 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 PET scan on 09/09/17 : -Multiple FDG avid LN seen within the neck , chest , abdomen and pelvis , most pronounced within the retroperitoneal space , the majority of these have increased in size since imaging on 08/27/17 and are consistent with history of lymphoma -asymmetric soft tissue fullness with abnormal FDG uptake with the left nasopharyngeal soft tissues , right palatine tonsil, and left lateral retropharyngeal space -consistent with sites of disease -FDG avid left pleural effusion consistent with a malignancy pleural effusion Pt was seen at Dr Anderson's office on 09/15/17 her overall prognosis remains extremely poor with persisted vegetative state -hospice /palliative care appropriate PT EXTUBATED TERMINALLY ON IV MORPHINE GTT TITRATE TO COMFORT DNR/DNI comfort care /end of life stage pt will likely during this hospital stay Vital Signs: Date Time Temp Pulse Resp B/P (MAP) Pulse Ox O2 Delivery O2 Flow Rate FiO2 09/25/17 00:30 Room Air 09/24/17 16:00 Nasal Cannula 2.0 09/24/17 12:00 Nasal Cannula 2.0 09/24/17 08:00 Nasal Cannula 2.0 09/24/17 08:00 67 18 Nasal Cannula 2.0
[2017-09-25] MEDS: ATROPINE SULFATE 1% OP SOLN 5 ML BTL SL PRN ×3 (00:05→01:55)
[2017-09-25] MEDS ORDERED: NURSING VERBAL MED ORDER ONE ×2 (00:15→01:00)
[2017-09-25] MEDS: MoRPHine SULF/NSS 250MG/250ML 250 ML IV PRN (00:46)
[2017-09-25] MEDS ORDERED: LORAZEPAM INJ 2 MG in SYRINGE 1 ML IV PRN (01:45)
--- NOTE | 2017-09-25 03:22 | Progress Note ---
Internal Med Progress Note Date of Service: Sep 25, 2017. Provider Documentation: SUBJECTIVE: called to eval px for probable OBJECTIVE: Vital Signs-as noted below Exam: General-unresponsive to pain, no spont respiration HEENT- sparse hair, pale palp conj, dilated pupils not reactive to light Heart-no heartbeat Lungs- no spont respiration Patient pronounced at [address] West to accomplish discharge summary. Vital Signs: Date Time Temp Pulse Resp B/P (MAP) Pulse Ox O2 Delivery O2 Flow Rate FiO2 09/25/17 00:30 Room Air 09/24/17 16:00 Nasal Cannula 2.0 09/24/17 12:00 Nasal Cannula 2.0 09/24/17 08:00 Nasal Cannula 2.0 09/24/17 08:00 67 18 Nasal Cannula 2.0
--- NOTE | 2017-09-25 07:24 | Discharge Summary ---
Discharge Summary Date of Service Sep 25, 2017. Discharge Summary Admission Date: Sep 20, 2017 at 13:08 Discharge Date: Sep 25, 2017 Discharge Disposition: Principal Diagnosis: VEGETATIVE STATUS WITH RESPIRATORY FAILURE /METASTATIC MALIGNANCY /HOSPICE CARE PT WHILE IN COMFORT CARE /HOSPICE Procedures: MECHANICAL INTUBATION EEG MRI OF BRAIN CT OF BRAIN CHEST XRAY Consultations: Statement Clerks Supervisor neurology Palliative Care Admission Information HPI (per Admitting provider): This is a 71 year old female with a PMH of DM2, CKD stage 3, COPD on nocturnal O2, diastolic CHF, CAD, GERD, anxiety; recently admitted to [facility] due to an intra -abdominal mass/lymphoma - presents after being found unresponsive. As per family members, she was doing well last evening and then when her grandson saw her in the morning, she was seated with her tongue out, unresponsiveness. She was brought over to the ED, not responsive; in an extensor position. She was intubated to protect her airway. Family denies any suicidal ideation; she does take narcotic pain medications for chronic back pain. No hx. of seizures. Physical Exam (per Admitting): General Appearance: + pertinent finding (intubated) Eyes: + pertinent finding (pupils minimally reactive to light) Respiratory/Chest: lungs clear, normal breath sounds, no respiratory distress, no accessory muscle use Cardiovascular: regular rate, rhythm, no edema, no murmur Abdomen/GI: normal bowel sounds, non tender, soft Extremities/Musculoskelatal: normal capillary refill, no pedal edema Neurologic/Psych: + pertinent finding (non-responsive, intubated) Hospital Course UNRESPONSIVENESS /ACUTE CHANGE IN MENTAL STATUS /COMA: COMFORT CARE HOSPICE 09/25/17 pt at 3:30 am while on comfort care /hospice 09/24/17 pt is terminally extubated on IV morphine gtt 09/23/17 : no improvement in neurological status Absence of pupillary response possible irreversible encephalopathy with persisted vegetative state very poor prognosis underlying wide spread /multi organ involved metastatic lymphoma appreciate input form Palliative care and Statement Clerks Supervisor trial of CPAP failed as pt was able to initiate few shallow breath had detail discussion with Family Members -Daughter Esther , with her other sisters and Son pt' sisters were present at bedside as well Family is updated possible non reversibility of the comatose status in the prior discussions Pt mentioned to daughters she never wanted to be kept alive if there is no quality of life family wants to have some time with the pt possibly will be terminally extubated and pursue comfort care /hospice 09/22/17 Definitive etiology remains unknown differentials : acute brain stem CVA /lymphangitic spread /brain mets of aggressive lymphoproliferative disease presented with unresponsive state family found her slumped over with tongue protruded possible acute CVA -was not a tPA candidate on presentation -unknown time of onset /wide spread metastatic malignancy CT of brain on admission 09/20/17 no acute change noted CTA of brain : 1. Moderate to extensive atherosclerotic plaquing involves the bilateral cavernous and clinoid portions of the internal carotid arteries causing approximately 50% luminal narrowing. 2. No high-grade stenosis, aneurysm, dissection or proximal branch occlusion identified. MRI of brain with out contrast : No acute intracranial abnormality identified. No acute infarction or focal mass identified. multiple EEG done to R/o Seizure -was negative finding no evidence of sepsis , no significant electrolyte imbalance that can contribute to mental status change appreciate input from Statement Clerks Supervisor and Neurology pt is intubated for air way protection no movement of grimaces noted while remaining intubated with out any sedation or pain medications prognosis remains very poor possible brain stem acute spread comfort care /hospice IS appropriate RECENTLY DIAGNOSED LYMPHOMA WITH WIDE SPREAD METASTASIS : Incidental finding of wide spread abdominal and retroperitoneal Lymphadenopathy in CT abdomen/pelvis on 08/27/17 as pt was admitted for intractable abdominal pain CT guided retroperitoneal LN biopsy on 08/27/17 Pathology shows : 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 PET scan on 09/09/17 : -Multiple FDG avid LN seen within the neck , chest , abdomen and pelvis , most pronounced within the retroperitoneal space , the majority of these have increased in size since imaging on 08/27/17 and are consistent with history of lymphoma -asymmetric soft tissue fullness with abnormal FDG uptake with the left nasopharyngeal soft tissues , right palatine tonsil, and left lateral retropharyngeal space -consistent with sites of disease -FDG avid left pleural effusion consistent with a malignancy pleural effusion Pt was seen at Dr Anderson's office on 09/15/17 her overall prognosis remains extremely poor with persisted vegetative state -hospice /palliative care appropriate PT EXTUBATED TERMINALLY ON IV MORPHINE GTT TITRATE TO COMFORT DNR/DNI comfort care /end of life stage pt Discharge Instructions PATIENT WHILE ON HOSPICE /COMFORT CARE Additional Copies To Kota Davenport D.O.
--- NOTE | 2017-09-29 05:21 | EDITING REQUIRED CODING QUERY ---
CODING QUERY To promote full compliance with coding requirements relating to patient care, provider participation is requested in all cases of document preparer microfilming uncertainty. Please assist us with the question(s) below: Coding Question(s): Patient admitted in coma. Widespread lymphoma - possible brainstem stroke. Please document, if known or suspected, the principal diagnosis that resulted in this Inpatient stay. Thank you. 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 Principal Diagnosis: "_that condition established after study, to be chiefly responsible for occasioning the admission of the patient to the hospital for care." Co-Existing Principal Diagnosis: "_when two or more diagnoses equally meet the criteria for principal diagnosis as determined by the circumstances of admission, diagnostic work up, and/or therapy provided, and the Alphabetic Index, Tabular List, or another coding guideline does not provide sequencing direction, any one of the diagnoses may be sequenced first." "When the physician has documented what appears to be a current diagnosis in the body of the record, but has not included the diagnosis in the final diagnostic statement, the physician should be asked whether the diagnosis should be added." (Source [facility]oding [facility] 2 QTR90. p3-4)
== END 2017-09-25 05:12 | disposition expired | DRG 64 ==
LOC: EDBD 10:52 → C.EDB 10:53 → C.MSICU 13:08 → ENRESERV 13:19 → C.4E 09-24 10:55
PROVIDERS: ADMIT Family Medicine; ATTEND Hospitalist
PROC: 5A1945Z Respiratory Ventilation, 24-96 Consecutive Hours (ICD-10-PCS; principal; 2017-09-21)
PROC: 0BH17EZ Insertion of Endotracheal Airway into Trachea, Via Natural or Artificial Opening (ICD-10-PCS; principal; 2017-09-21)
PROC: 009U3ZX Drainage of Spinal Canal, Percutaneous Approach, Diagnostic (ICD-10-PCS; 2017-09-22)
DX: I63.9 Cerebral infarction, unspecified (principal); G93.1 Anoxic brain damage, not elsewhere classified; I50.42 Chronic combined systolic (congestive) and diastolic (congestive) heart failure; C85.18 Unspecified B-cell lymphoma, lymph nodes of multiple sites; J96.00 Acute respiratory failure, unspecified whether with hypoxia or hypercapnia; Z51.5 Encounter for palliative care; R40.3 Persistent vegetative state; J18.9 Pneumonia, unspecified organism; J91.0 Malignant pleural effusion; J98.11 Atelectasis; R40.20 Unspecified coma; I25.10 Atherosclerotic heart disease of native coronary artery without angina pectoris; N18.3 Chronic kidney disease, stage 3 (moderate); E11.21 Type 2 diabetes mellitus with diabetic nephropathy; Z86.73 Personal history of transient ischemic attack (TIA), and cerebral infarction without residual deficits; Z96.659 Presence of unspecified artificial knee joint; Z87.891 Personal history of nicotine dependence; J44.9 Chronic obstructive pulmonary disease, unspecified; K21.9 Gastro-esophageal reflux disease without esophagitis; Z79.4 Long term (current) use of insulin; Z99.81 Dependence on supplemental oxygen; Z82.49 Family history of ischemic heart disease and other diseases of the circulatory system